=== PATIENT | female | born 1945 | race African-American/Black ===

== ENCOUNTER 2017-11-10 09:39 | Emergency (ER) | payer MEDICARE, SELFPAY ==
[2017-11-10 09:40] VITALS: BP 165/75; PULSE 80; RESP 18; TEMP 36.6; O2SAT 98; BMI 29.3
--- NOTE | 2017-11-10 10:11 | ED.DCSUM_ITS ---
- ER Visit Summary Date of Service: 11/10/17 Chief Complaint: Lower abdominal pain History of Present Illness: The patient is a 72 F history of glaucoma. No prior surgeries. One month ago had a colonoscopy done at the [facility] which she states was unremarkable. She has been having lower abdominal pain for last 2 days or so. Says is constant. Associated nausea. No vomiting. No diarrhea. No constipation. No melena. Subjective fever. No dysuria. No hematuria. No upper abdominal pain no back pain. Nothing specifically makes it better or worse. No weight loss. She had similar symptoms in the past without diagnosis. Physical Examination: Well-appearing older female. Vital signs are stable and afebrile. H EENT exam unremarkable. Neck nontender. Lungs clear to auscultation bilaterally. Heart regular rate and rhythm no murmur. Abdomen is soft. Nondistended. Normal bowel sounds. No hernias or masses. No signs of obstruction. She is tender in both lower quadrants and suprapubically. There is no pulsatile mass. She is moving all 4 extremities are neurovascularly intact. Back is nontender. Neurologically she is awake and alert without focal motor deficits. Test Results: Hemoglobin is 12 unremarkable. Electrolytes unremarkable gap of 9 creatinine 1. UA has 5-10 white cells were 10-25 3 of cells 2+ bacteria I think is contaminated. CT abdomen pelvis with IV contrast shows sigmoid diverticulitis without perforation or abscess. Read by the radiologist. Emergency Department Course and Treatment: Older female with lower abdominal pain will have labs, UA and CT done. At this time she does not want anything for pain or nausea. Treatment Plan: Multiple repeat exams patient is currently doing well at 1434. She denied discussed test results in the CAT scan. She is comfortable being discharged to home. And being treated as an outpatient for acute sigmoid diverticulitis. She will be started on Cipro twice daily and Flagyl 3 times daily for 2 weeks. She did not want any thing stronger for pain at home will follow up with her primary care physician. Disposition: Discharge Impression: Acute abdominal pain secondary to sigmoid diverticulitis This note was generated with [employer] software. It may contain incorrect words, spelling, and punctuation that were not noted in review of the chart prior to signing ED Disposition - Plan for ED Patient: Chief Complaint: Abd Pain Referrals: Haris Child MD [STAFF PHYSICIAN] -
[2017-11-10 10:30] VITALS: BP 129/50; PULSE 76; RESP 14; O2SAT 99
[2017-11-10] MEDS: 0.9% Normal Saline 1,000 ML 1000 ML IV (10:33)
[2017-11-10 10:45] LABS: Absolute Lymphocyte Count 1.88 X10^3/ul (0.83-4.51); Absolute Neutrophil Count 6.1 X10^3/uL (2.0-7.7); Basophil# 0.02 X10^3/uL; Basophil% 0.2 % (0-1); Hematocrit 40.5 % (37-47); Hemoglobin 12.6 g/dl (12.0-15.0); Lymphocyte # 1.88 X10^3/ul (4.0); Lymphocyte % 20.9 % (19-41); Mean Corp Hgb Conc 31.1 g/gl (32-36); Mean Corpuscular Hgb 28.4 pg (27.0-32.0); Mean Corpuscular Volume 91.4 fL (81-99); Mean Platelet Vol. 10.4 fl (6.2-12.0); Monocyte# 0.95 X10^3/uL; Monocyte% 10.6 % (0-10); Neutrophil # 6.12 X10^3/uL (2.7-7.7); Neutrophil % 68.2 % (47-70); POSITIVE COUNT NO; POSITIVE DIFFERENTIAL NO; POSITIVE MORPHOLOGY NO; Platelet Count 278 K/mm3 (150-450); RBC Distribution Width CV 13.7 % (11.6-14.6); RBC Distribution Width SD 45.5 fl (35.1-43.9); Red Blood Count 4.43 M/mm3 (4.2-5.4)
[2017-11-10 10:49] LABS: Anion Gap 9 (5-15); BUN 9 mg/dL (7-18); BUN/Creat Ratio 7.8 RATIO (10-20); Calcium,Total 8.5 mg/dL (8.5-10.1); Chloride 111 mmol/L (98-107); Creatinine, Serum 1.15 mg/dL (0.55-1.02); EST Glomerular Filtration Rate 49 mL/min (>60); Est Glom Filt Rate - Afr Amer 60 mL/min (>60); Estimated Creatinine Clearance 44.61 ml/min; Glucose 109 mg/dL (74-106); Potassium 3.8 mmol/L (3.5-5.1); Sodium Level 144 mmol/L (136-145)
[2017-11-10] MEDS: Morphine 4 MG/ML Syringe IV (11:23)
[2017-11-10] MEDS: Ondansetron 4 MG/2 ML Vial IV (11:23)
[2017-11-10 11:40] LABS: Color, Urine Yellow (Yellow); Glucose, Dipstick Normal (Normal); Ketone-Dipstick 5 mg/dl (Negative); Leukocyte Esterase-Dipstick 500 /ul (Negative); Nitrite-Dipstick Negative (Negative); Occult Blood-Urine 25 /ul (Negative); Protein-Dipstick 15 mg/dl (Negative); Specific Gravity, Urine 1.015 (1.002-1.030); Urine Bilirubin Dipstick Negative (Negative); Urine Clarity Cloudy (Clear); Urine Urobilinogen Normal (Normal)
[2017-11-10 11:47] LABS: Red Blood Cells-Urine 0-5 SEEN /hpf (0-5); Squamous Epithelial Cells - UA 10-25 SEEN /hpf (5-10); White Blood Cells 5-10 SEEN /hpf (0-5)
[2017-11-10 11:48] LABS: Bacteria 2+ /hpf (None Seen); Mucous, Urine RARE /hpf (<or=2+)
--- NOTE | 2017-11-10 14:37 | ED.DEP ---
ED Disposition - Plan for ED Patient: Disposition: Home or Assisted Living Chief Complaint: Abd Pain Instructions: ED Diverticulitis Prescriptions: Metronidazole [Flagyl] 500 mg PO Q8H #42 tab Ciprofloxacin [Cipro] 500 mg PO BID #28 tab Referrals: Haris Child MD [STAFF PHYSICIAN] - Additional Instructions: On follow-up with Dr. Vazquez next week to be reevaluated. We will place you on Cipro 1 pill twice a day which is an antibiotic and also Flagyl 1 pill 3 times a day. This should progressively get better return to the ER if you are feeling worse.
[2017-11-10] MEDS: metroNIDAZOLE 500 MG Tablet PO (14:46)
[2017-11-10] MEDS: Ciprofloxacin 500 MG Tablet PO (14:47)
[2017-11-10 14:49] VITALS: BP 147/72; PULSE 70; RESP 14; O2SAT 97
[2017-11-10 14:50] VITALS: BP 147/72
== END 2017-11-10 14:51 | disposition home or self-care (01) ==
PROVIDERS: Emergency Provider Emergency Medicine
DX: K57.32 Diverticulitis of large intestine without perforation or abscess without bleeding (principal); R10.30 Lower abdominal pain, unspecified; H40.9 Unspecified glaucoma
CPT/HCPCS: 74177; 80048; 81001; 85025; 96361; 96374; 96375; 99284; J7030; Q9967; J2405

== ENCOUNTER 2018-06-16 16:54 | Observation (INO) | payer MEDICARE, SELFPAY ==
[2018-06-16] VITALS (9 sets, daily range): BP systolic 128–191; BP diastolic 68–85; PULSE 57–77; RESP 16–18; TEMP 36–36.6; O2SAT 97–100; BMI 29.9; BMI 29.7
--- NOTE | 2018-06-16 17:12 | EKG12_ITS ---
Test Reason : CP Blood Pressure : / mmHG Vent. Rate : 075 BPM Atrial Rate : 075 BPM P-R Int : 136 ms QRS Dur : 074 ms QT Int : 388 ms P-R-T Axes : 052 -07 023 degrees QTc Int : 433 ms Normal sinus rhythm Normal ECG Confirmed by LILLI OQUENDO, SCOTT ([id number]), society editor MADAI AN ([id number]) on 06/20/2018 10:51:25 AM Referred By: USHA Confirmed By:SCOTT REEDER MD
--- NOTE | 2018-06-16 17:15 | ED.DCSUM_ITS ---
- ER Visit Summary Date of Service: 06/16/18 Chief Complaint: Chest pain History of Present Illness: The patient is a 72 F with chest pain that started today around 2 PM. She never had this before. She reports a stabbing pain over her left chest. No radiation. She has some nausea and dizziness. The diz ziness has been going on however intermittently for the past month. It seems to be worse with certain positions. No history of vision changes, speech changes, facial droop, weakness, or numbness. No history of heart disease, aortic disease, or embolism. She never had a stress test or heart cath. Physical Examination: Afebrile and vital signs are unremarkable except for a blood pressure of 191/83. Patient is alert and oriented. No acute distress. Heart regular rate and rhythm. No murmurs. Lungs are clear bilaterally. Abdomen soft and nontender. Skin is normal in color without pallor, rash, or diaphoresis. Extremities nontender with no edema. Pulses 2+ and equal. Good strength and sensation, symmetric. Test Results: EKG showed sinus rhythm at a rate of 75 with no signs of ischemia or infarction pattern. Laboratory studies and chest x-ray are pending. Emergency Department Course and Treatment: Patient was placed on a monitor. Treated with aspirin and nitroglycerin while awaiting results. Will reassess. Patient's blood pressure and symptoms were better after treatment with aspirin a nd nitroglycerin. Blood work, troponin, EKG, chest x-ray were unremarkable. Patient has a heart score of 4. Hospitalist was contacted for further care. Treatment Plan: As above Disposition: Admission Impression: 1. Chest pain This note was generated with [facility] dictation software. It may contain incorrect words, spelling, and punctuation that were not noted in review of the chart prior to signing ED Disposition - Plan for ED Patient: Referrals: Lane Vazquez MD [Primary Care Provider] -
--- NOTE | 2018-06-16 17:15 | RAD_ITS ---
STUDY: X-RAY CHEST REASON FOR EXAM: Female, 72 years old. Chest pain. TECHNIQUE: Single frontal view of the chest. COMPARISON: None. FINDINGS: The lungs are clear and expanded. There is no demonstrated pleural abnormality. Normal size heart. Normal mediastinum and greg. Normal visualized pulmonary arteries. Normal visualized aortic arch and descending thoracic aorta. Normal visualized thoracic spine. Normal visualized ribs, clavicles, and shoulders. There is no demonstrated abnormality of the visualized soft tissue structures of the upper abdomen. RAD/Chest 1 View (Portable) IMPRESSION: No acute cardiopulmonary process. Electronically Signed: Radhika Williamson MD at 17:35 EDT Tel , Service support ,
[2018-06-16 17:25] LABS: Absolute Lymphocyte Count 1.83 X10^3/ul (0.83-4.51); Absolute Neutrophil Count 2.4 X10^3/uL (2.0-7.7); Basophil# 0.01 X10^3/uL; Basophil% 0.2 % (0-1); Hemoglobin 12.8 g/dl (12.0-15.0); Lymphocyte # 1.83 X10^3/ul (4.0); Lymphocyte % 39.7 % (19-41); Mean Corpuscular Hgb 29.1 pg (27.0-32.0); Mean Corpuscular Volume 90.9 fL (81-99); Mean Platelet Vol. 10.3 fl (6.2-12.0); Monocyte# 0.37 X10^3/uL; Neutrophil % 52.1 % (47-70); Platelet Count 288 K/mm3 (150-450); RBC Distribution Width CV 13.3 % (11.6-14.6); RBC Distribution Width SD 44.4 fl (35.1-43.9); White Blood Count 4.6 K/mm3 (4.4-11.0)
[2018-06-16] MEDS: Aspirin 81 MG TAB.CHEW 324 MG PO (17:25)
[2018-06-16 17:26] LABS: POSITIVE COUNT NO; POSITIVE DIFFERENTIAL NO; POSITIVE MORPHOLOGY NO
[2018-06-16 17:39] LABS: Anion Gap 8 (5-15); BUN 11 mg/dL (7-18); BUN/Creat Ratio 10.7 RATIO (10-20); Calcium,Total 8.3 mg/dL (8.5-10.1); Chloride 110 mmol/L (98-107); Creatinine, Serum 1.03 mg/dL (0.55-1.02); EST Glomerular Filtration Rate 56 mL/min (>60); Est Glom Filt Rate - Afr Amer 68 mL/min (>60); Glucose 97 mg/dL (74-106); Potassium 3.6 mmol/L (3.5-5.1); Sodium Level 145 mmol/L (136-145)
--- NOTE | 2018-06-16 19:07 | HP.PCM_ITS ---
Problem List (1) Chest pain at rest Status: Acute History of Present Illness Date of Admission: 06/16/18 Chief Complaint: chest pain The patient is a 72 year old F with a significant history of glaucoma who presented to the emergency department with chest pain at rest that started few hours before presentation. She describes chest pain as sharp; and with intensity of 10 out of 10. There are no alleviating or aggravating factors. She denies any nausea vomiting or diaphoresis. Her chest pain is to the left- sided of the chest and it is nonradiating. EKG at the emergency department showed sinus rhythm and her troponin was unremarkable. Also patient complained of vertigo that has been going on for about 1 month. She is scheduled to see her PCP on her 06/21/2018 for vertigo. She reported that an MRI last year done for Vertigo was unremarkable and she was referred to an eye doctor. Past Medical History Medical History: Medical History (Last Updated 06/16/18 @ 20:11 by Kirby Plata MD) Glaucoma H40.9 Allergies No Known Allergies Allergy (Verified 11/10/17 09:41) Home Medications: Ambulatory Orders Medication Instructions Recorded Dorzolamide HCL/Timolol [Cosopt 1 drop EACH EYE BID 11/10/17 Opth Drops] Latanoprost 1 drop EACH EYE QHS 11/10/17 Surgical History: no surgical history Lives: Alone Smoking Status: Never smoker Tobacco Use: Non-smoker Alcohol: None - *Family History Maternal History Items: Cancer Sibling History Items: Cancer Review of Systems Constitutional: Denies: Chills, Fever, Weight Change HEENT: Denies: Head Aches, Sinus Congestion, Sinus Drainage Cardiovascular: Reports: Chest Pain. Denies: Palpitations Respiratory: Denies: Cough, Shortness of breath at rest, Sputum production Gastrointestinal: Denies: Abdominal Pain, Nausea, Vomiting Genitourinary: Denies: Dysuria Musculoskeletal: Denies: Joint Pain, Joint Tenderness Skin: Denies: Rash, Wounds Neurological: Denies: Numbness, Tingling, Focal weakness Psychiatric: Denies: Anxiety, Depression, Homicidal Ideations, Suicidal Ideati ons Hematologic/ Lymphatic: Denies: Easy Bruising, Easy Bleeding VTE Information - Inpt Only VTE Present on Admission: No VTE Mechan Device Prophylaxis: None VTE Pharm Prophylaxis ordered?: Yes Patient Problems: Active and Suspected Problems (Last Updated 06/16/18 @ 20:11 by Kirby Plata MD) Chest pain at rest (Acute) - Physical Exam General: Alert, Oriented x3, Cooperative HEENT: Atraumatic, PERRLA, EOMI, Normocephalic Neck: Supple, No JVD, Negative Carotid Bruits Lungs: Clear to auscultation, Normal air movement Cardiovascular: Regular rate, No murmurs Abdomen: Bowel Sounds Present, Soft, Non Tender Extremities: No edema, Capillary Refill Less than 3 Seconds Skin: No rashes, No breakdown Musculoskeletal: No Tenderness to Palpation of Joints or Extremities Neurological: Neuro grossly intact, - - Patria-Hallpike maneuver was unremarkable. Psych/Mental Status: Normal Affect, Appropriate Vital Signs Temp Pulse Resp BP Pulse Ox 97.8 F 57 L 16 145/85 H 97 06/16/18 16:55 06/16/18 18:00 06/16/18 18:00 06/16/18 18:00 06/16/18 18:00 Oxygen Delivery Method Room Air Weight: 89.5 kg Body Mass Index (BMI) 29.9 Laboratory Tests Past 24 Hrs 06/16/18 06/16/18 17:05 17:05 WBC 4.6 RBC 4.40 Hgb 12.8 Hct 40.0 MCV 90.9 MCH 29.1 MCHC 32.0 RDW 13.3 RDW Differential 44.4 H Plt Count 288 MPV 10.3 Immature Gran % (Auto) 0.000 Neut % (Auto) 52.1 Lymph % (Auto) 39.7 [place] % (Auto) 8.0 Eos % (Auto) 0.0 Baso % (Auto) 0.2 Absolute Neuts (auto) 2.4 Absolute Lymphs (auto) 1.83 Total Counted Not Reportable Sodium 145 Potassium 3.6 Chloride 110 H Carbon Dioxide 27.0 Anion Gap 8 BUN 11 Creatinine 1.03 H Estim Creat Clear Calc 49.80 Est GFR (MDRD) Af Amer 68 Est GFR (MDRD) Non-Af 56 L BUN/Creatinine Ratio 10.7 Glucose 97 Calcium 8.3 L Troponin I < 0.015 Assessment/Plan All Active Problems (Last Updated 06/16/18 @ 20:11 by Kirby Plata MD) Chest pain at rest (Acute) The patient is a 72 year old F with a significant history of glaucoma who presented to the emergency department with chest pain at rest and with chronic vertigo. Chest pain Admit to a monitored bed on PCU CXR independently reviewed confirms no acute cardiopulmonary process. EKG independently reviewed confirms sinus rhythm ASA 81 mg p.o. daily SL NTG 0.4 mg prn as needed for chest pain We will check lipid panel. High intensity statin ordered Serial cardiac enzymes Stat EKG as needed for chest pain Tread mill Stress test in the AM if the cardiac enzymes are negative Chronic Vertigo As needed meclizine ordered. Physical therapy to work with patient on vestibular exercises. Patient to follow-up with PCP Glaucoma Latanoprost and Cosopt continued DVT prophylaxis Subcutaneous Lovenox. Code Visit OBSV E&M: 78455 Initial observation care L3
--- NOTE | 2018-06-16 20:21 | EKG12_ITS ---
Test Reason : ADM EKG Blood Pressure : / mmHG Vent. Rate : 066 BPM Atrial Rate : 066 BPM P-R Int : 130 ms QRS Dur : 068 ms QT Int : 406 ms P-R-T Axes : 032 008 014 degrees QTc Int : 425 ms Normal sinus rhythm Normal ECG When compared with ECG of 16-JUN-2018 16:54, MANUAL COMPARISON REQUIRED, DATA IS UNCONFIRMED Confirmed by LILLI OQUENDO, SCOTT ([id number]), avid editor MADAI AN ([id number]) on 06/21/2018 8:17:14 AM Referred By: CARLI Confirmed By:SCOTT REEDER MD
[2018-06-16] MEDS: Atorvastatin Calcium 40 MG Tablet PO (21:48)
[2018-06-16] MEDS: Latanoprost 0.005% 1 Bottle 1 DRP EACH EYE (21:49)
[2018-06-16] MEDS: Dorzolamide HCL/Timolol 10 ml Bottle 1 DRP EACH EYE (21:49)
[2018-06-16] MEDS: Acetaminophen 325 MG Tablet 650 MG PO (22:28)
[2018-06-17] VITALS (7 sets, daily range): BP systolic 126–148; BP diastolic 60–83; PULSE 62–89; RESP 16–18; TEMP 36.4–36.6; O2SAT 100
[2018-06-17 04:31] LABS: Absolute Lymphocyte Count 1.92 X10^3/ul (0.83-4.51); Absolute Neutrophil Count 2.6 X10^3/uL (2.0-7.7); Basophil# 0.02 X10^3/uL; Basophil% 0.4 % (0-1); Hematocrit 39.1 % (37-47); Lymphocyte # 1.92 X10^3/ul (4.0); Lymphocyte % 38.6 % (19-41); Mean Corp Hgb Conc 33.2 g/gl (32-36); Mean Corpuscular Hgb 29.3 pg (27.0-32.0); Mean Corpuscular Volume 88.3 fL (81-99); Mean Platelet Vol. 10.3 fl (6.2-12.0); Monocyte# 0.45 X10^3/uL; Neutrophil # 2.58 X10^3/uL (2.7-7.7); Neutrophil % 51.8 % (47-70); Platelet Count 259 K/mm3 (150-450); RBC Distribution Width CV 13.1 % (11.6-14.6); RBC Distribution Width SD 41.9 fl (35.1-43.9); Red Blood Count 4.43 M/mm3 (4.2-5.4)
[2018-06-17 04:35] LABS: POSITIVE COUNT NO; POSITIVE DIFFERENTIAL NO; POSITIVE MORPHOLOGY NO
[2018-06-17 04:43] LABS: Partial Thromboplast Time 32.9 Seconds (24.1-36.2)
[2018-06-17 04:45] LABS: Anion Gap 7 (5-15); BUN 11 mg/dL (7-18); BUN/Creat Ratio 12.4 RATIO (10-20); Chloride 114 mmol/L (98-107); Cholesterol 195 mg/dL (200); Creatinine, Serum 0.88 mg/dL (0.55-1.02); EST Glomerular Filtration Rate 67 mL/min (>60); Est Glom Filt Rate - Afr Amer 81 mL/min (>60); Estimated Creatinine Clearance 58.29 ml/min; Glucose 87 mg/dL (74-106); High Density Lipoprotein 62 mg/dL; Potassium 3.8 mmol/L (3.5-5.1); Sodium Level 145 mmol/L (136-145); Triglycerides 104 mg/dL; Very Low Density Lipoprotein 21 mg/dL (5-40)
[2018-06-17] MEDS: Aspirin E.C. 81 MG Tablet PO (05:41)
--- NOTE | 2018-06-17 05:55 | EKG12_ITS ---
Test Reason : AM EKG Blood Pressure : / mmHG Vent. Rate : 072 BPM Atrial Rate : 072 BPM P-R Int : 152 ms QRS Dur : 070 ms QT Int : 422 ms P-R-T Axes : 054 -06 009 degrees QTc Int : 462 ms Normal sinus rhythm Normal ECG When compared with ECG of 16-JUN-2018 20:45, MANUAL COMPARISON REQUIRED, DATA IS UNCONFIRMED Confirmed by LILLI OQUENDO, SCOTT ([id number]), technical writer and editor MADAI AN ([id number]) on 06/21/2018 8:15:40 AM Referred By: DR RICHARDSON Confirmed By:SCOTT REEDER MD
--- NOTE | 2018-06-17 08:40 | STRESSREP ---
Stress Test Report Exercise myocardial perfusion stress test. 72-year-old lady with a history of chest pain. Medications: Aspirin Lipitor Lovenox. Stress protocol: Resting EKG demonstrates sinus bradycardia with a rate of 60 bpm normal intervals are noted resting blood pressure 130/100 mmHg. The patient exercised according to the regular Jonel protocol for total duration of 4 minutes. Patient completed 1 minute into stage II of the Jonel protocol the maximum heart rate attained was 153 bpm which was 103% of maximum predicted heart rate the maximum workload was 5.8 metabolic equivalents. At rest there were no ST or T wave changes noted suggest ischemia at peak exercise occasional premature ventricular complexes were noted. The resting blood pressure 130/100 mmHg with a final blood pressure 160/90 mmHg the peak blood pressure 190/72 mmHg. Myocardial perfusion protocol. 11.5 mCi of technetium 99m sestamibi was injected at rest. The patient exercised according to regular Jonel protocol for 4 minutes at peak exercise 34.2 mCi of technetium 99m sestamibi was injected stress images were obtained stress and rest images were reconstructed and compared in the short axis vertical long horizontal long axis. Gated images were also obtained per Perfusion SPECT analysis: Review of the stress images demonstrate normal uptake of tracer noted in all areas of the myocardium. The resting images similarly demonstrate normal uptake of tracer noted in all areas of myocardium. No areas of reversibility are noted suggest ischemia no previous infarct is noted. Gated SPECT analysis: The gated ejection fraction is noted to be 74%. Conclusion: Normal exercise myocardial perfusion stress test at a low to moderate workload. Preserved ejection fraction.
--- NOTE | 2018-06-17 10:18 | DCINST_ITS ---
- Discharge Diagnoses Current Active Problems: Current Active and Chronic Problems (Last Updated 06/16/18 @ 20:11 by Kirby Plata MD) Chest pain at rest (Acute) You will use the following diet at home:: Cardiac - <2 gram sodium per day Your food should be the consistency of: Regular Your liquids should be the consistency of: Regular/Thin Discharge Activity: Return to Normal Activity Allergies/Adverse Reactions: Allergies No Known Allergies Allergy (Verified 11/10/17 09:41) Medications to take at Discharge Dorzolamide HCL/Timolol [Cosopt Opth Drops] 1 drop EACH EYE BID 11/10/17 Latanoprost 1 drop EACH EYE QHS 11/10/17 Meclizine HCl [Antivert] 12.5 mg PO TID PRN PRN #21 tablet 06/17/18 The following prescriptions were given: Meclizine HCl [Antivert] 12.5 mg PO TID PRN PRN #21 tablet PRN Reason: Vertigo Primary Care Physician: Lane Vazquez MD [Primary Care Provider] - Please follow up with your Primary Care Physician in: 1 week Test Results: Test results from this visit will be discussed in further detail at your follow- up appointment, if applicable.
[2018-06-17] MEDS: Dorzolamide HCL/Timolol 10 ml Bottle 1 DRP EACH EYE (10:32)
[2018-06-17] MEDS: Acetaminophen 325 MG Tablet 650 MG PO (10:55)
--- NOTE | 2018-06-17 15:08 | DS.PCM_ITS ---
<Tylor Sarmiento - Last Filed: 06/17/18 15:03> Discharge Date and Diagnosis Date of Admission: 06/16/18 Date of Discharge: 06/17/18 - Primary Discharge Diagnosis Chest pain - musculoskeletal chronic peripheral vertigo glaucoma Hospital Course and Treatment Imaging Results: RAD/Chest 1 View (Portable) IMPRESSION: No acute cardiopulmonary process. Stress test: Conclusion: Normal exercise myocardial perfusion stress test at a low to moderate workload. Preserved ejection fraction. Operations: None Procedures: Stress test Summary of Care Provided: Hospital course: The patient is a 72 year old F with pmhx of chronic vertigo and glaucoma who presented to the ER with chief complaint of chest pain described as sharp 10/10 pain occurring at rest with no aggravating or alleviating factors. She also noted that she has had vertigo worse over the last month, and that she has had workup for this over a year ago and plans to have outpatient follow up with her PCP for this. EKG, trop, and CXR were negative. She was admitted for CP and placed on tele in the PCU. Enzymes were cycled - negative. No events on tele. The following morning a stress test was performed and was negative. She was discharged home in stable condition. She was prescribed meclizine for vertigo and advised to follow up with her PCP for this as previously planned, in the next week. This patient was seen by Tylor Sarmiento PA-C under the supervision of Dr. Stevenson.[] - Physical Exam General: Alert, Oriented x3, Cooperative HEENT: Atraumatic, PERRLA, EOMI, Normocephalic Neck: Supple, No JVD, Negative Carotid Bruits Lungs: Clear to auscultation, Normal air movement Cardiovascular: Regular rate, No murmurs Abdomen: Bowel Sounds Present, Soft, Non Tender Extremities: No edema, Capillary Refill Less than 3 Seconds Skin: No rashes, No breakdown Musculoskeletal: No Tenderness to Palpation of Joints or Extremities Neurological: Cranial nerves II-XII grossly intact Psych/Mental Status: Normal Affect, Appropriate Vital Signs Temp Pulse Resp BP Pulse Ox 97.5 F L 71 16 127/60 H 100 06/17/18 10:29 06/17/18 11:00 06/17/18 10:29 06/17/18 10:40 04/05/19 10:29 Oxygen Delivery Method Room Air Weight: 196 lb 10.437 oz Body Mass Index (BMI) 29.7 Intake and Output for Last 24 Hours 06/15/18 06/16/18 06/17/18 23:59 23:59 23:59 Intake Total 240 / 240 0 / 0 Balance 240 / 240 0 / 0 Laboratory Tests Past 24 Hrs 06/16/18 06/16/18 06/16/18 17:05 17:05 20:30 WBC 4.6 RBC 4.40 Hgb 12.8 Hct 40.0 MCV 90.9 MCH 29.1 MCHC 32.0 RDW 13.3 RDW Differential 44.4 H Plt Count 288 MPV 10.3 Immature Gran % (Auto) 0.000 Neut % (Auto) 52.1 Lymph % (Auto) 39.7 [place] % (Auto) 8.0 Eos % (Auto) 0.0 Baso % (Auto) 0.2 Absolute Neuts (auto) 2.4 Absolute Lymphs (auto) 1.83 Total Counted Not Reportable PT INR APTT Sodium 145 Potassium 3.6 Chloride 110 H Carbon Dioxide 27.0 Anion Gap 8 BUN 11 Creatinine 1.03 H Estim Creat Clear Calc 49.80 Est GFR (MDRD) Af Amer 68 Est GFR (MDRD) Non-Af 56 L BUN/Creatinine Ratio 10.7 Glucose 97 Calcium 8.3 L Troponin I < 0.015 < 0.015 Triglycerides Cholesterol LDL Cholesterol VLDL Cholesterol HDL Cholesterol 06/17/18 06/17/18 06/17/18 00:20 04:22 04:22 WBC RBC Hgb Hct MCV MCH MCHC RDW RDW Differential Plt Count MPV Immature Gran % (Auto) Neut % (Auto) Lymph % (Auto) [place] % (Auto) Eos % (Auto) Baso % (Auto) Absolute Neuts (auto) Absolute Lymphs (auto) Total Counted PT 13.0 INR 1.0 APTT 32.9 Sodium 145 Potassium 3.8 Chloride 114 H Carbon Dioxide 24.0 Anion Gap 7 BUN 11 Creatinine 0.88 Estim Creat Clear Calc 58.29 Est GFR (MDRD) Af Amer 81 Est GFR (MDRD) Non-Af 67 BUN/Creatinine Ratio 12.4 Glucose 87 Calcium 8.0 L Troponin I < 0.015 Triglycerides 104 Cholesterol 195 LDL Cholesterol 112 VLDL Cholesterol 21 HDL Cholesterol 62 06/17/18 04:22 WBC 5.0 RBC 4.43 Hgb 13.0 Hct 39.1 MCV 88.3 MCH 29.3 MCHC 33.2 RDW 13.1 RDW Differential 41.9 Plt Count 259 MPV 10.3 Immature Gran % (Auto) 0.200 Neut % (Auto) 51.8 Lymph % (Auto) 38.6 [place] % (Auto) 9.0 Eos % (Auto) 0.0 Baso % (Auto) 0.4 Absolute Neuts (auto) 2.6 Absolute Lymphs (auto) 1.92 Total Counted Not Reportable PT INR APTT Sodium Potassium Chloride Carbon Dioxide Anion Gap BUN Creatinine Estim Creat Clear Calc Est GFR (MDRD) Af Amer Est GFR (MDRD) Non-Af BUN/Creatinine Ratio Glucose Calcium Troponin I Triglycerides Cholesterol LDL Cholesterol VLDL Cholesterol HDL Cholesterol Discharge Diet: No Restrictions Discharge Activity: Return to Normal Activity Home Medications: Medications to take at Discharge Dorzolamide HCL/Timolol [Cosopt Opth Drops] 1 drop EACH EYE BID 11/10/17 Latanoprost 1 drop EACH EYE QHS 11/10/17 Meclizine HCl [Antivert] 12.5 mg PO TID PRN PRN #21 tablet 06/17/18 Following Prescrptions Were Given to Patient: Meclizine HCl [Antivert] 12.5 mg PO TID PRN PRN #21 tablet PRN Reason: Vertigo Primary Care Physician: Lane Vazquez MD [Primary Care Provider] - Please follow up with your Primary Care Physician in: 1 week Disposition: Home Medical Necessity - Tobacco Use Smoking Status: Never smoker Tobacco Use: Non-smoker Meaningful Use Info Meaningful Use Diagnoses (Choose all that apply): None applicable <Jen Stevenson - Last Filed: 06/17/18 17:31> Hospital Course and Treatment Summary of Care Provided: This patient was seen in conjunction with MONICA Hanson. I have independently interviewed and examined the patient and reviewed pertinent historical, laboratory, and other data. Please refer to MONICA Hanson note for his patient's presentation, findings, and recommendations. I have reviewed and his note and concur with his documentation 72-year-old who presented with chest pain. Admit EKG was unremarkable, troponins were negative, chest x-ray was negative, stress test was negative. Patient was discharged in a stable state Physical Exam: Gen: alert, not pale, not jaundiced CVS:HS I +II, regular, no murmurs RESP: CTA GI: BS present, soft, nontender, no palpable organs EXT:No edema - Physical Exam Vital Signs Temp Pulse Resp BP Pulse Ox 97.5 F L 71 16 127/60 H 100 06/17/18 10:29 06/17/18 11:00 06/17/18 10:29 06/17/18 10:40 06/17/18 10:29 Oxygen Delivery Method Room Air Weight: 89.2 kg Body Mass Index (BMI) 29.7 Intake and Output for Last 24 Hours 06/15/18 06/16/18 06/17/18 23:59 23:59 23:59 Intake Total 240 / 240 0 / 0 Balance 240 / 240 0 / 0 Laboratory Tests Past 24 Hrs 06/16/18 06/16/18 06/17/18 17:05 20:30 00:20 WBC RBC Hgb Hct MCV MCH MCHC RDW RDW Differential Plt Count MPV Immature Gran % (Auto) Neut % (Auto) Lymph % (Auto) [place] % (Auto) Eos % (Auto) Baso % (Auto) Absolute Neuts (auto) Absolute Lymphs (auto) Total Counted PT INR APTT Sodium 145 Potassium 3.6 Chloride 110 H Carbon Dioxide 27.0 Anion Gap 8 BUN 11 Creatinine 1.03 H Estim Creat Clear Calc 49.80 Est GFR (MDRD) Af Amer 68 Est GFR (MDRD) Non-Af 56 L BUN/Creatinine Ratio 10.7 Glucose 97 Calcium 8.3 L Troponin I < 0.015 < 0.015 < 0.015 Triglycerides Cholesterol LDL Cholesterol VLDL Cholesterol HDL Cholesterol 06/17/18 06/17/18 06/17/18 04:22 04:22 04:22 WBC 5.0 RBC 4.43 Hgb 13.0 Hct 39.1 MCV 88.3 MCH 29.3 MCHC 33.2 RDW 13.1 RDW Differential 41.9 Plt Count 259 MPV 10.3 Immature Gran % (Auto) 0.200 Neut % (Auto) 51.8 Lymph % (Auto) 38.6 [place] % (Auto) 9.0 Eos % (Auto) 0.0 Baso % (Auto) 0.4 Absolute Neuts (auto) 2.6 Absolute Lymphs (auto) 1.92 Total Counted Not Reportable PT 13.0 INR 1.0 APTT 32.9 Sodium 145 Potassium 3.8 Chloride 114 H Carbon Dioxide 24.0 Anion Gap 7 BUN 11 Creatinine 0.88 Estim Creat Clear Calc 58.29 Est GFR (MDRD) Af Amer 81 Est GFR (MDRD) Non-Af 67 BUN/Creatinine Ratio 12.4 Glucose 87 Calcium 8.0 L Troponin I Triglycerides 104 Cholesterol 195 LDL Cholesterol 112 VLDL Cholesterol 21 HDL Cholesterol 62 Minutes spent on discharge:: 40 Patient Condition:: Stable Code Visit OBSV E&M: [id number] Observation care discharge
== END 2018-06-17 10:17 | disposition home or self-care (01) ==
LOC: ED 17:48 → PCU 20:00
PROVIDERS: Admitting Provider Hospitalist; Emergency Provider Emergency Medicine; Family Provider Internal Medicine; PCP Internal Medicine; Visit Provider Internal Medicine
DX: R07.89 Other chest pain (principal); R11.0 Nausea; H40.9 Unspecified glaucoma; H81.399 Other peripheral vertigo, unspecified ear; Z79.899 Other long term (current) drug therapy
CPT/HCPCS: 36415; 71045; 78452; 80048; 80061; 84484; 85025; 85610; 85730; 93005; 93017; 99218; 99285; A9500; A4216; G0378

== ENCOUNTER 2018-07-23 12:20 | Emergency (ER) | payer MEDICARE, SELFPAY ==
[2018-06-16 20:53] VITALS: BMI 29.7
[2018-07-23 12:21] VITALS: BP 150/71; PULSE 80; RESP 20; TEMP 36.4; O2SAT 97; BMI 29.5
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
--- NOTE | 2018-07-23 12:41 | EKG12_ITS ---
Test Reason : CP Blood Pressure : / mmHG Vent. Rate : 075 BPM Atrial Rate : 075 BPM P-R Int : 132 ms QRS Dur : 070 ms QT Int : 400 ms P-R-T Axes : 077 037 049 degrees QTc Int : 446 ms Normal sinus rhythm Normal ECG Confirmed by DAVIE BEYER ([id number]), mapping editor MADAI AN ([id number]) on 07/25/2018 1:53:08 PM Referred By: VARGAS Confirmed By:DAVIE BEYER
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
[2018-07-23] MEDS: HYDROcodone Bitartrate/Apap 5/325 Tablet PO (12:54)
--- NOTE | 2018-07-23 14:12 | NURSING ---
CALLED [facility] ABOUT TRANSFER.
[2018-07-23 14:53] VITALS: BP 165/79; PULSE 71; RESP 18; O2SAT 99
--- NOTE | 2018-07-23 14:54 | NURSING ---
CALLED [facility] FOR TRANSPORT.
[2018-07-23 14:59] LABS: Absolute Lymphocyte Count 1.43 X10^3/ul (0.83-4.51); Absolute Neutrophil Count 3.2 X10^3/uL (2.0-7.7); Basophil# 0.01 X10^3/uL; Basophil% 0.2 % (0-1); Hematocrit 39.6 % (37-47); Lymphocyte # 1.43 X10^3/ul (4.0); Mean Corp Hgb Conc 32.8 g/gl (32-36); Mean Corpuscular Volume 88.2 fL (81-99); Mean Platelet Vol. 9.8 fl (6.2-12.0); Monocyte# 0.51 X10^3/uL; Neutrophil # 3.16 X10^3/uL (2.7-7.7); Neutrophil % 61.8 % (47-70); Platelet Count 291 K/mm3 (150-450); RBC Distribution Width CV 13.3 % (11.6-14.6); RBC Distribution Width SD 42.3 fl (35.1-43.9); Red Blood Count 4.49 M/mm3 (4.2-5.4); White Blood Count 5.1 K/mm3 (4.4-11.0)
[2018-07-23 15:00] LABS: POSITIVE COUNT NO; POSITIVE DIFFERENTIAL NO; POSITIVE MORPHOLOGY NO
[2018-07-23 15:19] LABS: Anion Gap 6 (5-15); BUN 15 mg/dL (7-18); BUN/Creat Ratio 12.2 RATIO (10-20); Calcium,Total 8.2 mg/dL (8.5-10.1); Chloride 112 mmol/L (98-107); Creatinine, Serum 1.23 mg/dL (0.55-1.02); EST Glomerular Filtration Rate 46 mL/min (>60); Est Glom Filt Rate - Afr Amer 55 mL/min (>60); Estimated Creatinine Clearance 41.71 ml/min; Glucose 118 mg/dL (74-106); Potassium 3.7 mmol/L (3.5-5.1); Sodium Level 143 mmol/L (136-145)
[2018-07-23 15:20] VITALS: BP 169/75; PULSE 82; RESP 17
== END 2018-07-23 15:21 | disposition short-term general hospital (02) ==
LOC: ED 12:56
PROVIDERS: Emergency Provider Emergency Medicine; Family Provider Internal Medicine; PCP Internal Medicine
DX: S22.42XA Multiple fractures of ribs, left side, initial encounter for closed fracture (principal); M54.2 Cervicalgia; V89.2XXA Person injured in unspecified motor-vehicle accident, traffic, initial encounter; Y93.9 Activity, unspecified; Y92.9 Unspecified place or not applicable; H40.9 Unspecified glaucoma
CPT/HCPCS: 70450; 71250; 72125; 80048; 85025; 93005; 99285; A4216

== ENCOUNTER 2018-08-15 12:00 | Emergency (ER) | payer MEDICARE, SELFPAY ==
[2018-08-15 12:01] VITALS: BP 134/80; PULSE 100; RESP 18; TEMP 36.6; O2SAT 100
--- NOTE | 2018-08-15 12:27 | CT_ITS ---
STUDY: CT BRAIN WITHOUT CONTRAST REASON FOR EXAM: Female, 72 years old. Head injury due to a fall. RADIATION DOSAGE (If Supplied By Facility): CTDIvol = ( 44.99 ) mGy, DLP = ( 745.49 ) mGycm TECHNIQUE: Transaxial CT imaging of the brain was performed without administration of intravenous contrast material. Individualized dose optimization techniques were used for this CT. COMPARISON: Comparison is made with prior examination dated July 23, 2018. FINDINGS: Normal soft tissue structures. Normal calvarium. There is mild cerebral atrophy with widening of the extra-axial spaces and ventricular dilatation. Normal white matter tracts of the cerebral hemispheres. Normal basal ganglia and thalami. Normal brainstem. There is mild cerebellar atrophy. There is no intracranial hemorrhage. There are no findings of an acute ischemic infarction. Normal visualized paranasal sinuses. CT/Brain/Head without Contrast IMPRESSION: Chronic involutional changes of the brain. Electronically Signed: Gaurav Foster, at 13:01 EDT , Service support ,
--- NOTE | 2018-08-15 12:50 | RAD_ITS ---
STUDY: X-RAY - LEFT HAND REASON FOR EXAM: Female, 72 years old. Pain, swelling and abrasions secondary to a fall. TECHNIQUE: 3 view(s) of the hand. COMPARISON: None. FINDINGS: There is joint space narrowing of the radiocarpal articulation consistent with degenerative arthrosis. There is absence of the distal aspect of the ulna. Normal visualized carpal bones. Normal carpal articulations Normal carpometacarpal articulation of the thumb. Normal second through fifth carpometacarpal joints. Normal metacarpi. Normal metacarpophalangeal joint of the thumb. Normal interphalangeal joint of the thumb. Normal proximal and distal phalanges of the thumb. Normal metacarpophalangeal joints of the second through fifth fingers. There is diffuse articular joint space narrowing of the proximal and distal interphalangeal joints of the second through fifth fingers, but without erosive changes or periarticular soft tissue swelling. Normal phalanges of the second through fifth fingers. Soft tissue swelling overlying the dorsal aspect of the hand. RAD/Hand Min 3 Views IMPRESSION: Degenerative changes. Soft tissue swelling. Electronically Signed: Gaurav Foster, at 13:03 EDT , Service support ,
[2018-08-15] MEDS: Diphth,Pertuss(Acell),Tet Vac 0.5 ML Vial IM (13:27)
--- NOTE | 2018-08-15 13:39 | ED.DCSUM_ITS ---
- ER Visit Summary Date of Service: 08/15/18 Chief Complaint: Fall History of Present Illness: The patient is a 72 F who tripped and fell on a sidewalk this morning. She is complaining of headache and left hand pain. She is not on anticoagulants. She denies loss of consciousness. Physical Examination: Vital signs unremarkable. Patient sitting upright in bed no acute distress. Head neck examination reveals an abrasion with small hematoma on the left eyebrow. Pupils are equal and reactive. Extraocular movements are intact. No C-spine tenderness. Heart is regular rate and rhythm. Lung sounds are clear. Abdomen is soft nontender. Extremity examination reveals abrasions with edema to the back of her left hand. There is no tenderness at the wrist, elbow, or shoulder. Right upper extremity examination is unremarkable. Lower extremity examination reveals mild tenderness over the right knee with full range of motion. Test Results: CT head shows chronic involutional changes. Left hand x-rays reveal soft tissue swelling and degenerative changes. Emergency Department Course and Treatment: Wounds are cleansed and dressed. Tetanus update is provided. Treatment Plan: [] Disposition: Discharge Impression: 1. Mechanical fall 2. Closed head injury 3. Left hand contusion This note was generated with [employer] dictation software. It may contain incorrect words, spelling, and punctuation that were not noted in review of the chart prior to signing ED Disposition - Plan for ED Patient: Disposition: Home or Assisted Living Instructions: ED Mechanical Fall, ED Head Injury Closed, ED Contusion Hand Referrals: Lane Vazquez MD [Primary Care Provider] - 5-7 Days
== END 2018-08-15 13:50 | disposition home or self-care (01) ==
PROVIDERS: Emergency Provider Emergency Medicine; Family Provider Internal Medicine; PCP Internal Medicine
DX: S00.212A Abrasion of left eyelid and periocular area, initial encounter (principal); S00.12XA Contusion of left eyelid and periocular area, initial encounter; S60.222A Contusion of left hand, initial encounter; W01.0XXA Fall on same level from slipping, tripping and stumbling without subsequent striking against object, initial encounter; Y93.9 Activity, unspecified; Y92.480 Sidewalk as the place of occurrence of the external cause; I25.2 Old myocardial infarction
CPT/HCPCS: 70450; 73130; 90471; 90715; 99284

== ENCOUNTER 2020-10-02 10:02 | Emergency (ER) | payer MEDICARE, SELFPAY ==
[2020-10-02 10:03] VITALS: BP 153/106; PULSE 91; RESP 16; TEMP 36.7; O2SAT 95; BMI 32.5
--- NOTE | 2020-10-02 10:19 | EDS_ITS ---
HPI History of Present Illness Chief Complaint: Upper Extremity Injury Detail of Chief Complaint: Right shoulder pain x2 months Informant: patient Onset/Context/Timing Current Severity: 07/22 Narrative Narrative: Patient presents to the emergency department complaint of right shoulder pain for the last 2 months. Patient denies any trauma. Patient has been seen in urgent care and had x-rays couple months ago that just showed some arthritis. Patient also has been seen by Dr. Willam Taylor who gave her cortisone injections in it x2. Patient states the initial shot did seem to help for some time but then when she got the second shot it did not really seem to help her. Patient states pain worse with movement. Patient has a hard time sleeping at night because of the pain. She is been taking Tylenol but not get much relief with that. Patient also has seen her primary care physician who ordered physical therapy and she went to physical therapy yesterday. Pain was more severe this morning. Patient denies any chest pain or shortness of breath. Patient otherwise has no medical history. [facility] Medical History (Updated 10/02/20 @ 10:[address] Yeyo Beth ) Glaucoma Home Medications alendronate 70 mg PO QWEEK 10/02/20 [History Last Taken Unknown] amlodipine 5 mg PO DAILY 10/02/20 [History Last Taken Unknown] atorvastatin 40 mg PO DAILY 10/02/20 [History Last Taken Unknown] ergocalciferol (vitamin D2) 50,000 unit PO QWEEK 10/02/20 [History Last Taken Unknown] hydrocodone-acetaminophen 1 tab PO Q4H PRN PRN 2 Days #15 tablet 10/02/20 [Rx Last Taken Unknown] Allergy/AdvReac Type Severity Reaction Status Date / Time No Known Allergies Allergy Verified 10/02/20 10:02 Social History Smoking Status: Never smoker [facility] ED Constitutional Constitutional ED: Reports systems reviewed and no addt'l complaints, except as documented; Denies body ache(s), change in weight or chills Eyes Eyes: Denies acute decrease in peripheral vision, change in vision, double vision or loss of vision ENT ENT ED: Reports none; Denies ear pain, lip swelling, loss taste/smell, neck pain, otalgia or sore throat Cardiovascular Cardiovascular: Reports none; Denies abdominal pain, chest pain with activity, leg edema, lightheadedness, palpitations, rapid heart rate or syncope Respiratory/Chest Respiratory/Chest: Reports none; Denies change in mental status, dry cough, dyspnea, hemoptysis, shortness of breath at rest or shortness of breath with exertion Gastrointestinal Gastrointestinal: Reports none; Denies abdominal pain, change in stool omid acter, diarrhea, hematemesis, hematochezia, melena, rectal bleeding or vomiting Genitourinary Genitourinary ED: Reports none; Denies abdominal discomfort, anuria, dysuria, genital pain or polyuria Musculoskeletal Musculoskeletal: Reports none and other Details: Right shoulder pain ; Denies arthralgias, back pain, difficulty walking, extremity pain, muscle weakness or myalgias Integumentary Reports none; Denies abscess or rash Neurologic Neurologic: Reports none; Denies abnormal gait, confusion, focal weakness, frequent falls, headache(s), loss of vision, numbness, paresthesias, radicular pain, vertigo or weakness Psychiatric Psychiatric: Reports systems reviewed and no addt'l complaints, except as documented and none; Denies behavioral changes, confusion, difficulty concentrating, hallucinations, suicidal ideation, tactile hallucinations or visual hallucinations Endocrine Endocrinology: Denies none, cold intolerance, excessive sweating, fatigue or heat intolerance Hematologic/Lymphatic Hematologic/Lymphatic: Reports none; Denies anemia, easy bleeding or easy bruising Allergic/Immunologic Allergic/Immunologic ED: Denies as per HPI, none, lip swelling, mouth swelling, throat swelling, tongue swelling or hives EXAM Physical Exam Const Vital Signs: 10/02/20 10:03 Temperature 98.1 F Temperature Source Temporal Pulse Rate 91 Respiratory Rate 16 Blood Pressure 153/106 H Blood Pressure Mean 121 Pulse Ox 95 Oxygen Delivery Method Room Air Positive well nourished and well developed General Appearance ED: well developed and NAD HEENT Reports TM's clear and moist mucous membranes normocephalic and atraumatic; Negative for trauma or tenderness Tympanic Membrane ED: Yes TM's clear Eyes PERRL and EOMs intact bilaterally General Eye ED: Negative for pale conjunctiva or scleral icterus Neck no lymphadenopathy, supple and no JVD General: Negative for tenderness Chest Wall inspection of chest normal and palpation of chest normal Chest: Negative for tenderness Resp normal respiratory effort and clear to auscultation bilaterally Effort and Inspection: Negative for respiratory distress or pain with movement Auscultation: Negative for rhonchi, wheezes or diminished lung sounds Cardio regular rate, regular rhythm, S1 normal heart sound, S2 normal heart sound and no murmurs Peripheral Pulses: pulses 2+ throughout GI normal to inspection, nondistended, normoactive bowel sounds, soft to palpation, non-tender, non-distended and no masses Back/Spine no CVA tenderness and no thoracic nor lumbar tenderness Extremity normal to inspection Extremity Narrative: Evaluation of the right shoulder reveals tenderness palpation anteriorly over the glenohumeral joint. Patient has pain with abduction of the shoulder and can only abduct to about 70 degrees before she has significant discomfort. There is no erythema or warmth noted to the joint. She has a hard time resisting abduction because of pain. General Extremety ED: Negative for edema General Extremity: Negative for edema Neuro oriented x3, CN's II-XII intact bilaterally, no sensory deficits noted and gait normal Sensorium / Orientation: awake, alert, oriented to person, oriented to place and oriented to time Motor Exam: strength 5/5 throughout and strength abnormal Psych mental status grossly normal Skin no rashes or lesions noted and no wounds MDM MDM MDM Narrative Medical decision making narrative: At this point patient is already had imaging of the shoulder I do not feel repeat imaging is indicated as she has had no trauma. Plan will be to refer patient to orthopedic surgery for follow-up and give a sling for comfort as needed. Patient also given a prescription for [place] for pain. She is advised to take a daily stool softener to prevent constipation and to take the medication with food. Discharge Plan Triage Chief Complaint: Upper Extremity Injury ED Provider: Yeyo Beth Dx/Rx/DC Orders Clinical Impression: Acute pain of right shoulder Instructions: Shoulder Problems, ED Shoulder Pain, Uncertain Cause Prescriptions: New hydrocodone-acetaminophen [hydrocodone-acetaminophen] 1 TABLET tablet 1 tab PO Q4H PRN PRN (Reason: Pain) 2 Days Qty: 15 RF: 0 No Action atorvastatin 40 mg tablet 40 mg PO DAILY RF: 0 alendronate 70 mg tablet 70 mg PO QWEEK RF: 0 amlodipine 5 mg tablet 5 mg PO DAILY RF: 0 ergocalciferol (vitamin D2) 1,250 mcg (50,000 unit) capsule 50,000 unit PO QWEEK RF: 0 Primary Care Provider: Lane Vazquez Referrals: Gaston Tate MD [STAFF PHYSICIAN] - 3-[address] Vazquez MD [Primary Care Provider] - Disposition Disposition: Home, Self Care
[2020-10-02 10:33] VITALS: BP 153/106; PULSE 91; RESP 18
== END 2020-10-02 10:53 | disposition home or self-care (01) ==
LOC: ED 10:43
PROVIDERS: Emergency Provider Emergency Medicine; PCP Internal Medicine
DX: M25.511 Pain in right shoulder (principal); H40.9 Unspecified glaucoma; M19.90 Unspecified osteoarthritis, unspecified site; Z79.899 Other long term (current) drug therapy
CPT/HCPCS: 99283

== ENCOUNTER 2021-05-06 10:09 | Emergency (ER) | payer MEDICARE, SELFPAY ==
[2021-05-06 10:10] VITALS: BP 182/85; PULSE 89; RESP 18; TEMP 36.1; O2SAT 100; BMI 36.2
[2021-05-06] MEDS: HYDROcodone Bitartrate/Apap 5/325 Tablet PO (10:52)
--- NOTE | 2021-05-06 10:55 | RAD_ITS ---
STUDY: X-RAY - RIGHT SCAPULA REASON FOR EXAM: Female, 75 years old. Pain following a fall. TECHNIQUE: 2 view(s) of the scapula were obtained. COMPARISON: None. FINDINGS: Normal scapula, including the osseous glenoid rim, acromion, scapular neck, spine, coracoid process, and visualized body. Normal glenohumeral articulation. There is hypertrophic osteoarthrosis of the acromioclavicular joint with inferior osseous spur formation. Normal visualized humeral head. Normal visualized pulmonary apex. RAD/Scapula IMPRESSION: Osteoarthritis of the acromioclavicular joint. Electronically Signed: Gaurav Foster MD at 11:15 EST ,
--- NOTE | 2021-05-06 10:55 | RAD_ITS ---
STUDY: X-RAY - RIGHT SHOULDER REASON FOR EXAM: Female, 75 years old. Injury TECHNIQUE: 2 view(s) of the shoulder. COMPARISON: None. FINDINGS: Normal glenohumeral articulation. There is degenerative arthrosis of the acromioclavicular joint without inferior osseous spur formation. Normal acromion. Normal humeral head and visualized proximal humerus. The soft tissue structures are unremarkable. Normal visualized pulmonary apex. RAD/Shoulder min 2 Views IMPRESSION: Degenerative changes of the acromioclavicular joint. Electronically Signed: Gaurav Foster MD at 11:15 EST ,
--- NOTE | 2021-05-06 10:55 | RAD_ITS ---
STUDY: X-RAY - RIGHT FOOT CLINICAL: Female, 75 years old. Foot pain following a fall. TECHNIQUE: 3 view(s) of the foot. COMPARISON: None. FINDINGS: Normal talus, calcaneus, and tarsal bones. Normal visualized subtalar, talonavicular, calcaneocuboid, tarsal and tarsometatarsal articulations. Normal metatarsi. There is degenerative arthrosis of the metatarsophalangeal joint of the hallux with a hallux valgus deformity. Normal tibial and fibular sesamoid bones. Normal interphalangeal joint of the great toe. Normal phalanges of the great toe. Normal second through fifth metatarsophalangeal joints. Normal interphalangeal joints and phalanges of the lesser toes. The soft tissue structures are unremarkable. RAD/Foot min 3 Views IMPRESSION: Hallux valgus deformity. Electronically Signed: Gaurav Foster MD at 11:14 EST ,
--- NOTE | 2021-05-06 10:55 | RAD_ITS ---
STUDY: X-RAY - RIGHT ANKLE REASON FOR EXAM: Female, 75 years old. Pain following a fall. TECHNIQUE: 3 view(s) of the ankle. COMPARISON: None. FINDINGS: Normal visualized distal tibia and fibula. Normal medial and lateral malleoli. Normal tibiotalar articulation and ankle mortise. A spur is seen at the insertion of the Achilles tendon. The visualized subtalar, talonavicular, calcaneocuboid and tarsal articulations are normal. Mild soft tissue swelling. RAD/Ankle min 3 Views IMPRESSION: Mild soft tissue swelling. Electronically Signed: Gaurav Foster MD at 11:14 EST ,
--- NOTE | 2021-05-06 11:36 | EDS_ITS ---
HPI History of Present Illness Chief Complaint: Fall Informant: patient and EMS Narrative Narrative: Very pleasant 75-year-old female presents the emergency room following a fall. Patient states she is on her way to work when she slipped on some water from the rain. She states that she fell backwards injuring her right scapula and her right ankle and foot. She has not been ambulatory since the fall. She denies any head injury or loss of consciousness. No hip chest or abdominal symptoms. No back or neck complaints PFSH PFS Medical History Glaucoma HLD (hyperlipidemia) HTN (hypertension) Home Medications amlodipine 5 mg PO DAILY 10/02/20 [History Last Taken Unknown] atorvastatin 40 mg PO DAILY 10/02/20 [History Last Taken Unknown] hydrocodone-acetaminophen 1 tab PO Q6H PRN PRN 3 Days #12 tablet 05/06/21 [Rx Last Taken Unknown] Allergy/AdvReac Type Severity Reaction Status Date / Time No Known Allergies Allergy Verified 05/06/21 10:14 Social History (Updated 05/06/21 @ 11:[address] Butch Trujillo DO) Smoking Status: Never smoker substance use type: does not use ROS ROS ED Constitutional Constitutional ED: Denies chills, fever(s) or weight loss Eyes Eyes: Denies change in vision or diplopia ENT ENT ED: Denies ear pain, rhinorrhea or sore throat Cardiovascular Cardiovascular: Denies chest pain, orthopnea, palpitations or racing heartbeat Respiratory/Chest Respiratory/Chest: Denies cough, dyspnea or orthopnea Gastrointestinal Gastrointestinal: Denies abdominal pain, diarrhea, nausea or vomiting Genitourinary Genitourinary ED: Denies dysuria, hematuria or urinary frequency Musculoskeletal Musculoskeletal: Reports other Details: See history of present illness ; Denies arthralgias or myalgias Integumentary Denies abscess or rash Neurologic Neurologic: Denies headache(s) or weakness Psychiatric Psychiatric: Denies anxiety, depression, suicidal ideation or suicidal thoughts Endocrine Endocrinology: Denies polydipsia, polyphagia or polyuria Allergic/Immunologic Allergic/Immunologic ED: Denies mouth swelling, tongue swelling or urticaria EXAM Physical Exam Const Vital Signs: 05/06/21 10:10 05/06/21 10:14 Temperature 97 F L Temperature Source Temporal Pulse Rate 89 Respiratory Rate 18 Respiratory Effort Normal Non-Labored Blood Pressure 182/85 H Blood Pressure Mean 117 Pulse Ox 100 Oxygen Delivery Method Room Air Positive well nourished and well developed General Appearance ED: well developed HEENT Reports normocephalic, head/scalp atraumatic, TM's clear and moist mucous membranes Negative for trauma Tympanic Membrane ED: Yes TM's clear Eyes PERRL and EOMs intact bilaterally Neck no lymphadenopathy, supple and no JVD Resp normal respiratory effort and clear to auscultation bilaterally Cardio regular rate, regular rhythm and no murmurs GI normal to inspection, nondistended, normoactive bowel sounds and non-tender Palpation: soft Back/Spine no CVA tenderness and normal ROM Extremity Extremity Narrative: Tender to palpation over the lateral and anterior right ankle. Mild soft tissue swelling. Tenderness of the fifth metatarsal. No fibular head pain. Tender palpation over the scapula. No clavicle tenderness General Extremety ED: Negative for edema General Extremity: Negative for edema Neuro oriented x3 and CN's II-XII intact bilaterally Sensorium / Orientation: alert Motor Exam: strength 5/5 throughout Psych mental status grossly normal Mood & Affect: Negative for depressed or tearful Skin no rashes or lesions noted and no wounds MDM MDM MDM Narrative Medical decision making narrative: My interpretations of the plain films of the right ankle right foot right scapula and right shoulder is no acute fracture. Patient will have her foot and ankle Jayjay wrapped. Crutches as needed. She received [place] here and I can write for some pain medicine at home. Radiography Diagnostic Testing: Clinical Impression(s) from Imaging Studies Ankle X-Ray 05/06/21 10:55 IMPRESSION: Mild soft tissue swelling. Electronically Signed: Gaurav Foster MD at 11:14 EST , Foot X-Ray 05/06/21 10:55 IMPRESSION: Hallux valgus deformity. Electronically Signed: Gaurav Foster MD at 11:14 EST , Scapula X-Ray 05/06/21 10:55 IMPRESSION: Osteoarthritis of the acromioclavicular joint. Electronically Signed: Gaurav Foster MD at 11:15 EST , Shoulder X-Ray 05/06/21 10:55 IMPRESSION: Degenerative changes of the acromioclavicular joint. Electronically Signed: Gaurav Foster MD at 11:15 EST , Discharge Plan Triage Chief Complaint: Fall ED Provider: Butch Trujillo Dx/Rx/DC Orders Clinical Impression: Fall, Contusion of right scapula, Foot sprain, Ankle sprain Instructions: ED Soft Tissue Contusion, ED Ankle Sprain (Adult) Prescriptions: New hydrocodone-acetaminophen [hydrocodone-acetaminophen] 1 TABLET tablet 1 tab PO Q6H PRN PRN (Reason: Pain) 3 Days Qty: 12 RF: 0 No Action atorvastatin 40 mg tablet 40 mg PO DAILY RF: 0 amlodipine 5 mg tablet 5 mg PO DAILY RF: 0 Primary Care Provider: Lane Vazquez Referrals: Lane Vazquez MD [Primary Care Provider] - 10-14 Days if not better Disposition Disposition: Home, Self Care
[2021-05-06 11:57] VITALS: BP 188/120; PULSE 60
--- NOTE | 2021-05-07 12:00 | CASEMGMT ---
HAJA LEACH ED follow-up: Date of ER visit: 05/06/2021 Presenting ER complaint: fall HAJA LEACH placed call to patient's telephone number listed on demographics and patient answered. HAJA LEACH introduced self and role at [facility]. Patient reports still in a lot of pain today. When asked if taking prescribed pain medication, patient states she has not been able to obtain prescription from pharmacy yet and is waiting for her daughter to bring it later today. 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 Patient states she is not using provided RHONDA wrap but has been using a boot she has at home to relieve pressure on lower leg. Patient instructed on using ice and elevation for pain relief. Patient reports she has been using a cane but admits to difficulty ambulating on injured leg. HAJA LEACH encouraged patient to use provided crutches as needed to assist with mobility. Patient voiced understanding. Patient lives alone but reports her landlord lives next door and would be available if needed for help. Patient does also have a medical alert. Patient encouraged to schedule follow-up appointment. HAJA LEACH placed call to [employer] to inquire about prescription delivery. Per pharmacy staff, prescription delivery available at no cost within 10 miles of pharmacy. Call placed to patient and patient agreeable to prescription delivery. HAJA LEACH again called [employer] to request prescription delivery for this patient. Per pharmacy staff, patient must call into pharmacy to pay $1.86 cost of medication over the phone prior to delivery and medication will then be delivered to patient's door between the hours of 2:00 p.m. and 6:00 p.m. today. Call placed to patient to inform of need for payment prior to delivery and timeframe for delivery. Patient expressed appreciation for coordination of prescription delivery and states she will call pharmacy to pay for medication. Patient instructed on medication, including possible side effects. Voiced understanding. Patient denies further questions or needs. HAJA Botello CM
== END 2021-05-06 12:24 | disposition home or self-care (01) ==
PROVIDERS: Emergency Provider Emergency Medicine; PCP Internal Medicine; Visit Provider Emergency Medicine
DX: S40.011A Contusion of right shoulder, initial encounter (principal); S93.401A Sprain of unspecified ligament of right ankle, initial encounter; I10 Essential (primary) hypertension; E78.5 Hyperlipidemia, unspecified; W01.0XXA Fall on same level from slipping, tripping and stumbling without subsequent striking against object, initial encounter; S93.601A Unspecified sprain of right foot, initial encounter; Y93.9 Activity, unspecified; Y92.9 Unspecified place or not applicable; Z79.899 Other long term (current) drug therapy
CPT/HCPCS: 73010; 73030; 73610; 73630; 99283

== ENCOUNTER 2022-02-05 20:41 | Emergency (ER) | payer MEDICARE, SELFPAY ==
[2022-02-05 20:42] VITALS: BP 136/66; PULSE 111; RESP 18; TEMP 37.8; O2SAT 97; BMI 34.6
--- NOTE | 2022-02-05 21:02 | EDS_ITS ---
HPI HPI - URI History of Present Illness Chief Complaint: Cough Informant: patient Onset/Context/Timing Onset: Today Context: Gradual Onset Timing: Continuous Quality: Malaise, cough, sore throat Current Severity: Moderate Maximum Severity: Moderate Worsened by: - (Nothing) Relieved by: - (Nothing but has not treated subjective fevers) Associated Symptoms Associated Symptoms: Positive for Nonproductive cough Narrative Narrative: Patient present with URI symptoms including sore throat, cough, subjective fever, malaise since early this morning, she has had symptoms now for maybe 16 or 17 hours. She denies any myalgias. She is vaccinated against COVID. No known sick contacts. No home testing prior to presentation here. She denies having any dyspnea, chest discomfort, abdominal discomfort or other GI symptoms. ROS ROS ED Constitutional Constitutional ED: Reports fever(s), malaise and subjective; Denies chills Eyes Eyes: Denies change in vision or diplopia ENT ENT ED: Reports sore throat; Denies ear pain or rhinorrhea Cardiovascular Cardiovascular: Denies chest pain or palpitations Respiratory/Chest Respiratory/Chest: Reports cough; Denies dyspnea Gastrointestinal Gastrointestinal: Denies abdominal pain, diarrhea, nausea or vomiting Genitourinary Genitourinary ED: Denies dysuria or hematuria Musculoskeletal Musculoskeletal: Denies myalgias or neck pain Integumentary Denies abscess or rash Neurologic Neurologic: Denies headache(s), paresthesias or weakness Psychiatric Psychiatric: Denies depression or suicidal thoughts Endocrine Endocrinology: Denies polydipsia or polyuria [facility] Medical History Glaucoma HLD (hyperlipidemia) HTN (hypertension) Home Medications amlodipine 5 mg tablet 5 mg PO DAILY 10/02/20 [History Last Taken Unknown] atorvastatin 40 mg tablet 40 mg PO DAILY 10/02/20 [History Last Taken Unknown] hydrocodone-acetaminophen 5-325mg 5mg-325mg 1 tab PO Q6H PRN PRN Pain 3 days #12 TABLETS 05/06/21 [Rx Last Taken Unknown] nirmatrelvir 300 mg (150 mg x2)-ritonavir 100 mg tablet,dose pack(EUA) (Paxlovid) See Rx Instructions PO .COMPLEX #30 tabs 02/05/22 [Rx Last Taken Unknown] Allergy/AdvReac Type Severity Reaction Status Date / Time No Known Allergies Allergy Verified 02/05/22 20:45 Social History Smoking Status: Never smoker substance use type: does not use EXAM Physical Exam Const Vital Signs: 02/05/22 20:42 02/05/22 21:02 Temperature 100.1 F H Temperature Source Temporal Pulse Rate 111 H Respiratory Rate 18 Respiratory Effort Normal Blood Pressure 136/66 H Blood Pressure Mean 89 Pulse Ox 97 Oxygen Delivery Method Room Air Room Air Positive well nourished and well developed General Appearance ED: well developed and NAD HEENT Reports moist mucous membranes HEENT Narrative: Mild posterior oropharyngeal erythema. No tonsillar enlargement, exudates, trismus, asymmetry, abscess. normocephalic and atraumatic Eyes PERRL and EOMs intact bilaterally Neck no lymphadenopathy, supple and no meningeal signs Resp normal respiratory effort and clear to auscultation bilaterally Cardio no murmurs Cardio Narrative: Mild tachycardia, examined while febrile Rate: regular rate Rhythm: regular rhythm Back/Spine no CVA tenderness and normal ROM Extremity normal to inspection and full ROM Neuro oriented x3, CN's II-XII intact bilaterally and no sensory deficits noted Sensorium / Orientation: alert Motor Exam: strength 5/5 throughout Psych mental status grossly normal Skin Lesions: no lesions Rashes: no rashes MDM MDM MDM Narrative Medical decision making narrative: Chest x-ray 2 views of my interpretation negative for any acute pneumonia, radiology in agreement. Rapid COVID returned positive. She was given Tylenol for fever. She is clinically and hemodynamically stable for outpatient treatment, without hypoxemia. She is a candidate for Paxlovid, prescribed that and advised to hold her atorvastatin in the meantime. Radiography Diagnostic Testing: Clinical Impression(s) from Imaging Studies Chest X-Ray 02/05/22 21:10 IMPRESSION: No acute cardiopulmonary pathology.. Electronically Signed: Stevo Lord MD at 21:39 EST , Discharge Plan Triage Chief Complaint: Cough ED Provider: Shane Mo Dx/Rx/DC Orders Clinical Impression: COVID-19 Instructions: Coronavirus Disease 2019 (COVID-19): Caring for Yourself or Others Prescriptions: New Paxlovid (EUA) 300 mg (150 mg x 2)-100 mg tablets,dose pack See Rx Instructions .ROUTE .COMPLEX Qty: 30 0RF Rx Instructions: take TWO 150 mg tablets of nirmatrelvir with ONE 100 mg tablet of ritonavir twice daily for 5 days Continued amlodipine 5 mg tablet 5 mg PO DAILY Label Comments: Take 1 tablet by mouth once daily. hydrocodone-acetaminophen 1 TABLET tablet 1 tab PO Q6H PRN PRN (Reason: Pain) 3 Days Qty: 12 0RF Held atorvastatin 40 mg tablet 40 mg PO DAILY Hold Instructions: Resume on 02/14/22. Label Comments: Take 1 tablet by mouth daily at bedtime. For cholesterol. Primary Care Provider: Lane Vazquez Referrals: Lane Vazquez MD [Primary Care Provider] - Activity Restrictions/Additional Instructions: Try to get a home portable pulse oximeter and closely watch your oxygen levels periodically. If you stay below 90% for more than a minute or so, and/or you are feeling like your breathing is getting worse, return to the emergency department for further evaluation. Currently, CDC recommendations state that you should stay home through day 5 of symptoms (Wednesday, 02/09 for you), then as long as symptoms are improving, if you need to go to work or somewhere else you may for days 6-10 as long as you are wearing a mask the entire time. If you are feeling better after day 10 you may resume life is normal. Disposition Disposition: Home, Self Care
[2022-02-05] MEDS: Acetaminophen 500 MG Tablet 1000 MG PO (21:08)
--- NOTE | 2022-02-05 21:10 | RAD_ITS ---
STUDY: X-RAY CHEST REASON FOR EXAM: Female, 76 years old. cough, fever TECHNIQUE: PA and lateral COMPARISON: 06/16/2018 FINDINGS: The lungs are clear and expanded. There is no demonstrated pleural abnormality. Normal size heart. Normal mediastinum and greg. Normal visualized pulmonary arteries. Normal visualized aortic arch and descending thoracic aorta. Dorsal spine and shoulders demonstrate degenerative change. Normal visualized ribs, and clavicles. There is no demonstrated abnormality of the visualized soft tissue structures of the upper abdomen. RAD/Chest PA and Lateral IMPRESSION: No acute cardiopulmonary pathology.. Electronically Signed: Stevo Lord MD at 21:39 EST ,
== END 2022-02-05 22:31 | disposition home or self-care (01) ==
PROVIDERS: Emergency Provider Emergency Medicine; PCP Internal Medicine; Visit Provider Emergency Medicine
DX: U07.1 COVID-19 (principal); I10 Essential (primary) hypertension; E78.5 Hyperlipidemia, unspecified
CPT/HCPCS: 71046; 87428; 87880; 99282

== ENCOUNTER 2022-11-11 11:30 | Emergency (ER) | payer MEDICARE, SELFPAY ==
[2022-11-11 11:31] VITALS: BP 127/109; PULSE 75; RESP 14; TEMP 36; O2SAT 99; BMI 32.1
--- NOTE | 2022-11-11 11:51 | EX.ED.DYSGE1 ---
HPI History of Present Illness Chief Complaint: Syncope Informant: patient Onset/Context/Timing Onset: Today Narrative Narrative: Patient presents after brief syncopal episode at work. Patient states she got up this morning and took her medication. She does not eat breakfast in the mornings. She states she got to work and grabbed her apron. 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 She told her boss she did not feel well. She apparently had a brief syncopal episode. Patient denies having chest pain or shortness of breath. She states has been eating and drinking well recently. She has not had any recent change in her medications. [facility] Medical History Glaucoma HLD (hyperlipidemia) HTN (hypertension) Home Medications amlodipine 5 mg tablet 5 mg PO DAILY 10/02/20 [History Last Taken Unknown] atorvastatin 40 mg tablet 40 mg PO DAILY 10/02/20 [History Last Taken Unknown] hydrocodone-acetaminophen 5-325mg 5mg-325mg 1 tab PO Q6H PRN PRN Pain 3 days #12 TABLETS 05/06/21 [Rx Last Taken Unknown] nirmatrelvir 300 mg (150 mg x2)-ritonavir 100 mg tablet,dose pack (Paxlovid) See Rx Instructions PO .COMPLEX #30 tabs 02/05/22 [Rx Last Taken Unknown] Allergy/AdvReac Type Severity Reaction Status Date / Time No Known Allergies Allergy Verified 11/11/22 11:34 Social History Smoking Status: Never smoker substance use type: does not use ROS ROS ED Constitutional Constitutional ED: Denies chills or fever(s) Eyes Eyes: Denies change in vision or discharge from eye(s) ENT ENT ED: Denies discharge from eye(s), rhinorrhea or sore throat Cardiovascular Cardiovascular: Denies chest pain or palpitations Respiratory/Chest Respiratory/Chest: Denies cough or dyspnea Gastrointestinal Gastrointestinal: Denies abdominal pain, nausea or vomiting Genitourinary Genitourinary ED: Denies difficulty urinating or dysuria Musculoskeletal Musculoskeletal: Denies back pain or extremity pain Integumentary Denies Abrasions or rash Neurologic Neurologic: Denies headache(s) or weakness Psychiatric Psychiatric: Denies anxiety or depression Allergic/Immunologic Allergic/Immunologic ED: Denies lip swelling or urticaria EXAM Physical Exam Const Vital Signs: 11/11/22 11:31 11/11/22 11:35 11/11/22 12:31 Temperature 96.8 F L Temperature Source Temporal Pulse Rate 75 78 Respiratory Rate 14 14 Respiratory Effort Normal Respiratory Pattern Normal Blood Pressure 127/109 H 146/76 H Blood Pressure Mean 115 99 Pulse Ox 99 98 Oxygen Delivery Method Room Air Room Air 11/11/22 13:29 Temperature Temperature Source Pulse Rate 74 Respiratory Rate 16 Respiratory Effort Respiratory Pattern Blood Pressure 141/67 H Blood Pressure Mean 91 Pulse Ox 100 Oxygen Delivery Method Room Air Positive well nourished and well developed General Appearance ED: well developed HEENT Reports normocephalic and head/scalp atraumatic Eyes PERRL and EOMs intact bilaterally Neck supple Chest Wall inspection of chest normal and palpation of chest normal Resp normal respiratory effort and clear to auscultation bilaterally Cardio regular rate and regular rhythm GI normal to inspection, nondistended, normoactive bowel sounds Palpation: soft Extremity normal to inspection Neuro oriented x3 and no sensory deficits noted Sensorium / Orientation: alert Motor Exam: strength 5/5 throughout Psych mental status grossly normal Skin no rashes or lesions noted MDM MDM MDM Narrative Medical decision making narrative: Patient placed on library monitor. Labwork obtained to evaluate for leukocytosis, anemia, and electrolyte derangement. EKG obtained to evaluate for cardiac arrhythmia/ischemia. Chest x-ray obtained to evaluate for acute lung pathology, cardiac size, or mediastinal abnormality. IV fluids initiated. Lab Data Attestation: I reviewed the patient's lab results. Labs: Laboratory Results - last 24 hr 11/11/22 11/11/22 11:45 13:15 WBC 4.9 RBC 4.23 Hgb 12.7 Hct 39.7 MCV 93.9 MCH 30.0 MCHC 32.0 RDW Std Deviation 45.9 H RDW Coeff of Tello 13.5 Plt Count 272 MPV 9.8 Immature Gran % (Auto) 0.200 Neut % (Auto) 49.5 Lymph % (Auto) 43.4 H [place] % (Auto) 6.3 Eos % (Auto) 0.0 Baso % (Auto) 0.6 Absolute Neuts (auto) 2.4 Absolute Lymphs (auto) 2.13 Nucleated RBC % 0 Sodium 142 Potassium 3.8 Chloride 109 H Carbon Dioxide 26.0 Anion Gap 7 BUN 14 Creatinine 2.01 H Estim Creat Clear Calc 22.79 Est GFR (MDRD) Af Amer 31 L Est GFR (MDRD) Non-Af 26 L BUN/Creatinine Ratio 7.0 L Glucose 168 H Calcium 9.1 Troponin I High Sens 9 Urine Color Yellow Urine Clarity Sl. Cloudy Urine pH 6.5 Ur Specific [place] 1.015 Urine Protein 30 H Urine Glucose (UA) Normal Urine Ketones Negative Urine Occult Blood 10 H Urine Nitrite Negative Urine Bilirubin Negative Urine Urobilinogen 1 H Ur Leukocyte Esterase 25 H Urine RBC 0 SEEN Urine WBC 0-5 SEEN Ur Squamous Epith Cells 10-25 SEEN Urine Bacteria 1+ Urine Mucus 0 SEEN Radiography Chest X-Ray - ED: 1 View, Read by ED Physician, Normal, Heart, Lungs and Mediastinum Diagnostic Testing: Clinical Impression(s) from Imaging Studies Chest X-Ray 11/11/22 11:55 IMPRESSION: Degenerative changes, as described above. No demonstrated acute cardiopulmonary process. Electronically Signed: Rony Nino MD at 12:52 EDT , EKG Initial EKG: Attestation: I personally reviewed and interpreted this EKG as follows: Interpretation: Sinus Rhythm (Sinus at 71 with no acute ischemia.) Treatment and Re-Evaluation :: CBC is unremarkable with normal white count and hemoglobin. Chemistry studies significant for a creatinine of 2.01. I was able to review her records and [facility]. In August of this year she had a creatinine of 1.56. Glucose is normal at 168. Troponin is normal. Urinalysis is a contaminated sample with no overt signs of infection. Chest x-ray per my interpretation reveals no acute findings. Radiology interpretation is reviewed and agrees. EKG is sinus at 71 with no acute ischemia. Patient has had no significant arrhythmias noted on library monitor. After liter of IV fluids patient does feel improved. She is up ambulating to the restroom and back without difficulty. At this time I do feel patient's symptoms are consistent with vasovagal syncope and dehydration. I do not feel she needs observation in the hospital for cardiac monitoring as she did have a prodrome with no chest pain or palpitations. Patient instructed to increase p.o. fluids. Return instructions given. Discharge Plan Triage Chief Complaint: Syncope ED Provider: Marleen Manzanares Dx/Rx/DC Orders Clinical Impression: Vasovagal syncope, Dehydration Instructions: ED Dehydration (Adult), ED Fainting, Vagal Reaction Prescriptions: No Action atorvastatin 40 mg tablet 40 mg PO DAILY Hold Instructions: Resume on 02/14/22. Patient Comments: Take 1 tablet by mouth daily at bedtime. For cholesterol. amlodipine 5 mg tablet 5 mg PO DAILY Patient Comments: Take 1 tablet by mouth once daily. hydrocodone-acetaminophen 1 TABLET tablet 1 tab PO Q6H PRN PRN (Reason: Pain) 3 Days Qty: 12 0RF Paxlovid 300 mg (150 mg x 2)-100 mg tablets,dose pack See Rx Instructions .ROUTE .COMPLEX Qty: 30 0RF Rx Instructions: take TWO 150 mg tablets of nirmatrelvir with ONE 100 mg tablet of ritonavir twice daily for 5 days Primary Care Provider: Lane Vazquez Referrals: Lane Vazquez MD [[facility]] - 1 Week Disposition Disposition: Home, Self Care
[2022-11-11] MEDS: 0.9% Normal Saline 1,000 ML 1000 ML IV (11:53)
--- NOTE | 2022-11-11 11:55 | RAD_ITS ---
STUDY: X-RAY CHEST REASON FOR EXAM: Female, 77 years old. sob PT STATES SHE FELT LIGHT HEADED AND PASSED OUT EARLIER THIS MORNING TECHNIQUE: Single AP portable view of the chest. COMPARISON: February 05, 2022 FINDINGS: The lungs are clear and expanded. There is no demonstrated pleural abnormality. Normal size heart. Normal mediastinum and greg. Normal visualized pulmonary arteries. There is atherosclerotic calcification of the aortic arch with tortuosity. There are diffuse degenerative changes of the visualized thoracic spine. Normal visualized ribs, clavicles, and shoulders. There is no demonstrated abnormality of the visualized soft tissue structures of the upper abdomen. RAD/Chest 1 View (Portable) IMPRESSION: Degenerative changes, as described above. No demonstrated acute cardiopulmonary process. Electronically Signed: Rony iNno MD at 12:52 EDT ,
[2022-11-11 12:08] LABS: Absolute Lymphocyte Count 2.13 X10^3/uL (0.83-4.51); Absolute Neutrophil Count 2.4 X10^3/uL (2.0-7.7); Basophil# 0.03 X10^3/uL; Basophil% 0.6 % (0-1); Hematocrit 39.7 % (37-47); Hemoglobin 12.7 g/dL (12.0-15.0); Lymphocyte # 2.13 X10^3/ul (0.83-4.51); Lymphocyte % 43.4 % (19-41); Mean Corpuscular Volume 93.9 fL (81-99); Mean Platelet Vol. 9.8 fl (6.2-12.0); Monocyte# 0.31 X10^3/uL; Monocyte% 6.3 % (0-10); NRBC Flagged by Analyzer 0 % (0-5); Neutrophil # 2.43 X10^3/uL (2.7-7.7); Neutrophil % 49.5 % (47-70); Platelet Count 272 K/mm3 (150-450); RBC Distribution Width CV 13.5 % (11.6-14.6); RBC Distribution Width SD 45.9 fl (35.1-43.9); Red Blood Count 4.23 M/mm3 (4.2-5.4); White Blood Count 4.9 K/mm3 (4.4-11.0)
[2022-11-11 12:22] LABS: Anion Gap 7 (5-15); BUN 14 mg/dL (7-18); Calcium,Total 9.1 mg/dL (8.5-10.1); Chloride 109 mmol/L (98-107); Creatinine, Serum 2.01 mg/dL (0.55-1.02); EST Glomerular Filtration Rate 26 mL/min (>60); Est Glom Filt Rate - Afr Amer 31 mL/min (>60); Estimated Creatinine Clearance 22.79 ml/min; Glucose 168 mg/dL (74-106); Potassium 3.8 mmol/L (3.5-5.1); Sodium Level 142 mmol/L (136-145); Troponin-I HS 9 pg/mL (3.0-54.0)
[2022-11-11 12:31] VITALS: BP 146/76; PULSE 78; RESP 14; O2SAT 98
[2022-11-11 13:25] LABS: Mucous, Urine 0 SEEN /hpf (<or=2+); Red Blood Cells-Urine 0 SEEN /hpf (0-5)
[2022-11-11 13:29] VITALS: BP 141/67; PULSE 74; RESP 16; O2SAT 100
[2022-11-11 13:36] LABS: Color, Urine Yellow (Yellow); Glucose, Dipstick Normal (Normal); Ketone-Dipstick Negative (Negative); Leukocyte Esterase-Dipstick 25 /ul (Negative); Nitrite-Dipstick Negative (Negative); Occult Blood-Urine 10 /ul (Negative); Protein-Dipstick 30 mg/dl (Negative); Specific Gravity, Urine 1.015 (1.002-1.030); Urine Bilirubin Dipstick Negative (Negative); Urine Clarity Sl. Cloudy (Clear); Urine Urobilinogen 1 mg/dl (Normal); Urine pH 6.5 (5.0 - 8.0)
[2022-11-11 13:43] LABS: Bacteria 1+ /hpf (None Seen); Squamous Epithelial Cells - UA 10-25 SEEN /hpf (5-10); White Blood Cells 0-5 SEEN /hpf (0-5)
== END 2022-11-11 14:30 | disposition home or self-care (01) ==
PROVIDERS: Emergency Provider Emergency Medicine; PCP Internal Medicine; Visit Provider Emergency Medicine
DX: R55 Syncope and collapse (principal); E86.0 Dehydration; E78.5 Hyperlipidemia, unspecified; I10 Essential (primary) hypertension; Z79.899 Other long term (current) drug therapy
CPT/HCPCS: 71045; 80048; 81001; 84484; 85025; 93005; 96360; 99285; J7030

== ENCOUNTER 2023-06-12 20:08 | Emergency (ER) | payer MEDICARE, SELFPAY ==
[2023-06-12 20:09] VITALS: BP 130/46; PULSE 77; RESP 18; TEMP 36.5; O2SAT 99; BMI 28.0
--- NOTE | 2023-06-12 20:23 | CT_ITS ---
INDICATION: abdominal pain EXAMINATION: CT ABDOMEN AND PELVIS WITH CONTRAST - CT Abdomen And Pelvis W/ Contrast Injection TECHNIQUE: Helically acquired images were obtained of the abdomen and pelvis following IV contrast. A radiation dose optimization technique was used for this scan. IV Contrast dosage and agent: 100 mL Isovue-370. Oral contrast: None. COMPARISON: CT chest July 23, 2018 FINDINGS: LOWER CHEST: Mild bibasilar atelectasis. No cardiomegaly or pericardial effusion. No appreciable coronary artery calcifications. No hiatal hernia. There is some fluid in the esophagus which may represent reflux. LIVER: Homogeneous. No focal mass. GALLBLADDER AND BILIARY TREE: No calcified gallstones. Gallbladder is slightly distended and there is a small amount of pericholecystic fluid. There is also mild intrahepatic biliary ductal dilation. No definite common bile duct distention for age; up to 10 mm. No visible stone. PANCREAS: 11 x 10 x 13 mm well-circumscribed, round, homogenous fluid density pancreatic head. Superior separate from the pancreatic duct. Correlation with pancreas MRI and MRCP is recommended. SPLEEN: Normal size without focal cystic or solid mass. ADRENAL GLANDS: No nodules. KIDNEYS, URETERS and BLADDER: Normal renal size and position. No mass. No hydronephrosis. Bladder is unremarkable. PERITONEUM: No ascites or free air. No other fluid collection. BOWEL: Normal appendix. No abnormally distended bowel loops or air fluid levels. No wall thickening or mass. Scattered diverticuli sigmoid colon without diverticulitis. LYMPH NODES: No enlarged mesenteric or retroperitoneal lymph nodes. VESSELS: Aorta is non-dilated. REPRODUCTIVE ORGANS: Within normal limits ABDOMINAL WALL: No discrete abdominal or pelvic wall hernia. BONES: No lytic or blastic abnormality. Surprisingly absent degenerative endplate changes of the spine. Moderate facet arthropathy lower lumbar spine on the left. CT/Abdomen/Pelvis W IV Cont ONLY IMPRESSION: 1. Mild biliary ductal dilation and mildly distended gallbladder with small amount of pericholecystic fluid suggested. Correlation with ultrasound is recommended for suspected cholecystitis. 2. Well delineated, roughly 10 mm homogenous fluid density pancreatic head. This appears separate from the duct. Pancreatic cyst is favored. Given apparent ductal dilation, correlation with MRCP and pancreas MRI is recommended. 3. Diverticulosis without diverticulitis. Electronically Signed: Jj Elizabeth DO at 22:41 EDT ,
[2023-06-12] MEDS: Ondansetron 4 MG/2 ML Vial IV (20:31)
[2023-06-12] MEDS: 0.9% Normal Saline (500mL Bag) 500 ML 999 ML IV ×2 (20:32→21:11)
[2023-06-12] MEDS: Morphine 4 MG/ML Syringe IV (20:32)
[2023-06-12 20:36] LABS: Absolute Lymphocyte Count 2.39 X10^3/uL (0.83-4.51); Basophil# 0.03 X10^3/uL; Basophil% 0.5 % (0-1); Eosinophils% 1.7 % (0-5); Hematocrit 36.3 % (37-47); Hemoglobin 11.7 g/dL (12.0-15.0); Lymphocyte # 2.39 X10^3/ul (0.83-4.51); Lymphocyte % 40.1 % (19-41); Mean Corp Hgb Conc 32.2 g/dL (32-36); Mean Corpuscular Volume 93.1 fL (81-99); Mean Platelet Vol. 10.3 fl (6.2-12.0); Monocyte# 0.46 X10^3/uL; Monocyte% 7.7 % (0-10); NRBC Flagged by Analyzer 0 % (0-5); Neutrophil # 2.96 X10^3/uL (2.7-7.7); Neutrophil % 49.7 % (47-70); Platelet Count 284 K/mm3 (150-450); RBC Distribution Width CV 14.6 % (11.6-14.6); RBC Distribution Width SD 49.7 fl (35.1-43.9)
--- NOTE | 2023-06-12 20:38 | ED.VIS.BACK ---
HPI <MONICA Carter - Last Filed: 06/12/23 21:56> History of Present Illness Chief Complaint: Back Narrative Narrative: Patient presenting today due to mid back pain that started this afternoon that began to radiate into her abdomen this evening, mainly to the epigastric area. She reports that she has had intermittent nausea and one episode of vomiting. She reports that she felt feverish last night but has not actually had a documented fever. She last had a bowel movement this morning that was normal. She denies any history of abdominal surgery or kidney stones. She denies any chills, hematemesis, melena, hematochezia, diarrhea, and urinary symptoms. PMH includes HTN and HLD. PFSH <MONICA Carter - Last Filed: 06/12/23 21:56> PFSH Medical History Glaucoma HLD (hyperlipidemia) HTN (hypertension) Home Medications amlodipine 5 mg tablet 5 mg PO DAILY 10/02/20 [History Last Taken Unknown] atorvastatin 40 mg tablet 40 mg PO DAILY 10/02/20 [History Last Taken Unknown] Allergy/AdvReac Type Severity Reaction Status Date / Time No Known Allergies Allergy Verified 06/12/23 20:10 Social History Smoking Status: Never smoker substance use type: does not use ROS <MONICA Carter - Last Filed: 06/12/23 21:56> ROS ED Constitutional Constitutional ED: Denies chills or fever(s) Cardiovascular Cardiovascular: Denies chest pain Respiratory/Chest Respiratory/Chest: Denies cough or dyspnea Gastrointestinal Gastrointestinal: Reports abdominal pain, nausea and vomiting; Denies constipation, diarrhea or melena Genitourinary Genitourinary ED: Denies dysuria, hematuria or urinary urgency Musculoskeletal Musculoskeletal: Reports back pain Integumentary Denies rash Neurologic Neurologic: Denies weakness EXAM <MONICA Carter - Last Filed: 06/12/23 21:56> Physical Exam Const Vital Signs: 06/12/23 20:09 06/12/23 22:07 Temperature 97.7 F L Temperature Source Oral Pulse Rate 77 103 H Respiratory Rate 18 17 Blood Pressure 130/46 H 151/76 H Blood Pressure Mean 74 101 Pulse Ox 99 96 Oxygen Delivery Method Room Air Room Air Positive well nourished, well developed and no apparent distress General Appearance ED: well developed HEENT Reports normocephalic and head/scalp atraumatic Mouth ED: Yes moist mucous membranes normal Eyes PERRL and EOMs intact bilaterally Neck full ROM and supple Chest Wall inspection of chest normal Resp normal respiratory effort and clear to auscultation bilaterally Cardio regular rate and regular rhythm GI soft to palpation, non-distended and no masses GI Narrative: Generalized tenderness to palpation worse in the epigastrium, no rigidity, guarding, or peritoneal signs. Negative McBurney's point tenderness, negative Guidry sign. Back/Spine normal ROM and normal to inspection Extremity normal to inspection and full ROM Neuro oriented x3, CN's II-XII intact bilaterally, moves all extremities, no focal motor deficits and no sensory deficits noted Sensorium / Orientation: awake and alert Psych mental status grossly normal and thought process normal Skin no rashes or lesions noted and no wounds <Dr. Jatinder Ceron DO - Last Filed: 06/12/23 22:55> Physical Exam Const Vital Signs: 06/12/23 20:09 06/12/23 22:07 Temperature 97.7 F L Temperature Source Oral Pulse Rate 77 103 H Respiratory Rate 18 17 Blood Pressure 130/46 H 151/76 H Blood Pressure Mean 74 101 Pulse Ox 99 96 Oxygen Delivery Method Room Air Room Air MDM <MONICA Carter - Last Filed: 06/12/23 21:56> [facility] Narrative Medical decision making narrative: Patient presenting today due to epigastric abdominal pain and back pain. She is generalized tenderness to her abdomen that is worse in the epigastrium. Labs will be obtained to rule out leukocytosis, anemia, electrolyte abnormality, pancreatitis, ONELIA, and UTI. CT of the abdomen pelvis will be obtained, she will be given IV fluids, Zofran, and morphine for pain. Workup is pending. Lab Data Attestation: I reviewed the patient's lab results. Lab results narrative: H&H 11.7 and 36.3, creatinine 1.6, AST 64 Labs: Laboratory Results - last 24 hr 06/12/23 06/12/23 20:00 21:20 WBC 6.0 RBC 3.90 L Hgb 11.7 L Hct 36.3 L MCV 93.1 MCH 30.0 MCHC 32.2 RDW Std Deviation 49.7 H RDW Coeff of Tello 14.6 Plt Count 284 MPV 10.3 Immature Gran % (Auto) 0.300 Neut % (Auto) 49.7 Lymph % (Auto) 40.1 Candler % (Auto) 7.7 Eos % (Auto) 1.7 Baso % (Auto) 0.5 Absolute Neuts (auto) 3.0 Absolute Lymphs (auto) 2.39 Nucleated RBC % 0 Sodium 142 Potassium 3.6 Chloride 110 H Carbon Dioxide 27.0 Anion Gap 5 BUN 18 Creatinine 1.60 H Estim Creat Clear Calc 32.32 Est GFR (MDRD) Af Amer 40 L Est GFR (MDRD) Non-Af 33 L BUN/Creatinine Ratio 11.2 Glucose 111 H Calcium 9.0 Total Bilirubin 0.90 AST 64 H ALT 24 Alkaline Phosphatase 114 Total Protein 6.7 Albumin 3.3 Globulin 3.4 Albumin/Globulin Ratio 1.0 Lipase 23 Urine Color Yellow Urine Clarity Clear Urine pH 5.0 Ur Specific Kane 1.025 Urine Protein 15 H Urine Glucose (UA) Normal Urine Ketones 50 H Urine Occult Blood Negative Urine Nitrite Negative Urine Bilirubin 1 H Urine Urobilinogen 4 H Ur Leukocyte Esterase 25 H Urine RBC 0 SEEN Urine WBC 0-5 SEEN Ur Squamous Epith Cells 0 SEEN Urine Bacteria 0 SEEN Hyaline Casts 0-5 SEEN Urine Mucus 0 SEEN Radiography Diagnostic Testing: Clinical Impression(s) from Imaging Studies Abdomen/Pelvis CT 06/12/23 20:23 IMPRESSION: 1. Mild biliary ductal dilation and mildly distended gallbladder with small amount of pericholecystic fluid suggested. Correlation with ultrasound is recommended for suspected cholecystitis. 2. Well delineated, roughly 10 mm homogenous fluid density pancreatic head. This appears separate from the duct. Pancreatic cyst is favored. Given apparent ductal dilation, correlation with MRCP and pancreas MRI is recommended. 3. Diverticulosis without diverticulitis. Electronically Signed: Jj Elizabeth DO at 22:41 EDT , <Dr. Jatinder Ceron DO - Last Filed: 06/12/23 22:55> [facility] Lab Data Labs: Laboratory Results - last 24 hr 06/12/23 06/12/23 20:00 21:20 WBC 6.0 RBC 3.90 L Hgb 11.7 L Hct 36.3 L MCV 93.1 MCH 30.0 MCHC 32.2 RDW Std Deviation 49.7 H RDW Coeff of Tello 14.6 Plt Count 284 MPV 10.3 Immature Gran % (Auto) 0.300 Neut % (Auto) 49.7 Lymph % (Auto) 40.1 Candler % (Auto) 7.7 Eos % (Auto) 1.7 Baso % (Auto) 0.5 Absolute Neuts (auto) 3.0 Absolute Lymphs (auto) 2.39 Nucleated RBC % 0 Sodium 142 Potassium 3.6 Chloride 110 H Carbon Dioxide 27.0 Anion Gap 5 BUN 18 Creatinine 1.60 H Estim Creat Clear Calc 32.32 Est GFR (MDRD) Af Amer 40 L Est GFR (MDRD) Non-Af 33 L BUN/Creatinine Ratio 11.2 Glucose 111 H Calcium 9.0 Total Bilirubin 0.90 AST 64 H ALT 24 Alkaline Phosphatase 114 Total Protein 6.7 Albumin 3.3 Globulin 3.4 Albumin/Globulin Ratio 1.0 Lipase 23 Urine Color Yellow Urine Clarity Clear Urine pH 5.0 Ur Specific Kane 1.025 Urine Protein 15 H Urine Glucose (UA) Normal Urine Ketones 50 H Urine Occult Blood Negative Urine Nitrite Negative Urine Bilirubin 1 H Urine Urobilinogen 4 H Ur Leukocyte Esterase 25 H Urine RBC 0 SEEN Urine WBC 0-5 SEEN Ur Squamous Epith Cells 0 SEEN Urine Bacteria 0 SEEN Hyaline Casts 0-5 SEEN Urine Mucus 0 SEEN Radiography Diagnostic Testing: Clinical Impression(s) from Imaging Studies Abdomen/Pelvis CT 06/12/23 20:23 IMPRESSION: 1. Mild biliary ductal dilation and mildly distended gallbladder with small amount of pericholecystic fluid suggested. Correlation with ultrasound is recommended for suspected cholecystitis. 2. Well delineated, roughly 10 mm homogenous fluid density pancreatic head. This appears separate from the duct. Pancreatic cyst is favored. Given apparent ductal dilation, correlation with MRCP and pancreas MRI is recommended. 3. Diverticulosis without diverticulitis. Electronically Signed: Jj Elizabeth DO at 22:41 EDT , Treatment and Re-Evaluation Narrative: I have personally performed a face to face assessment of the patient and have reviewed the HEAVENLY Note. I performed a substantive portion of the visit including all aspects of the following. My basurto findings include: History: Patient presents with back pain that began this morning. Patient states it was mainly in her mid thoracic area. Patient states that now her pain radiates around into her abdomen. Patient states her abdominal pain is over the epigastric area. Patient states nothing makes it better and nothing makes it worse. Patient denies any fevers or chills. Patient denies any nausea or vomiting. Exam: Vital signs are stable. Patient is afebrile. Patient is in no acute distress. Oral mucosa is pink and moist. Neck is supple. Trachea is midline. There is no JVD. Heart was regular rate and rhythm. Lungs are clear and equal bilaterally but somewhat diminished. There is good respiratory effort noted. Abdomen is soft. Bowel sounds are normal. There is tenderness over the epigastric area. There is no rebound or guarding noted. Cranial nerves II through XII are intact. There are no focal motor or sensory deficits noted. Medical Decision Making: Differential diagnosis includes pancreatitis, gastritis, peptic ulcer disease, pneumonia, and urinary tract infection. CBC will be obtained to assess for leukocytosis and anemia. Comprehensive metabolic profile will be obtained to assess for hepatic function, renal function, and electrolyte abnormality. Lipase will be obtained to assess for pancreatitis. Urinalysis will be obtained to assess for urinary tract infection. CT scan of the abdomen pelvis will be obtained to assess for bowel obstruction and perforation. Patient was given IV fluids. CBC was reviewed. There is a slight anemia with a hemoglobin of 11.7 and hematocrit of 36.3. The remainder is within normal limits. Comprehensive metabolic profile was reviewed. Creatinine was slightly elevated at 1.6. AST was slightly elevated at 64. ALT was normal. Alk phos was normal. Bilirubin was normal. Lipase was reviewed and was normal at 23. Urinalysis was reviewed. There is no evidence of urinary tract infection or hematuria. CT scan of the abdomen and pelvis was obtained. There is mild biliary ductal dilatation and mildly distended gallbladder with small amount of pericholecystic fluid. There is also a 10 mm fluid density in the pancreatic head which appears to be separate from the duct. This is likely a pancreatic cyst. This was interpreted by the radiologist and was also independently reviewed by myself. Patient is feeling better on reevaluation. Patient states her pain has resolved since she has been medicated. Case was discussed with Dr. Rojas, general surgeon on-call. Since ultrasound is not readily available at this time, he recommended giving the patient something to eat. If her pain would return, the patient would need to be admitted and get an ultrasound done tomorrow. If she remains pain-free after eating, she can be discharged home and follow-up as an outpatient this week. Care of the patient will be turned over to the oncoming physician. Discharge Plan Triage Chief Complaint: Back ED Midlevel Provider: Yesenia Malik ED Provider: Jatinder Ceron Dx/Rx/DC Orders Clinical Impression: Right upper quadrant abdominal pain Prescriptions: No Action atorvastatin 40 mg tablet 40 mg PO DAILY Hold Instructions: Resume on 02/14/22. Patient Comments: Take 1 tablet by mouth daily at bedtime. For cholesterol. amlodipine 5 mg tablet 5 mg PO DAILY Patient Comments: Take 1 tablet by mouth once daily. Primary Care Provider: Lane Vazquez Referrals: Lane Vazquez MD [Primary Care Provider] -
[2023-06-12 20:55] LABS: AST(SGOT) 64 U/L (15-37); Alanine Aminotransfer ALT/SGPT 24 U/L (13-56); Albumin, Serum 3.3 g/dL (3.2-5.0); Alkaline Phosphatase 114 U/L (45-117); Anion Gap 5 (5-15); BUN 18 mg/dL (7-18); BUN/Creat Ratio 11.2 RATIO (10-20); Chloride 110 mmol/L (98-107); EST Glomerular Filtration Rate 33 mL/min (>60); Est Glom Filt Rate - Afr Amer 40 mL/min (>60); Estimated Creatinine Clearance 32.32 ml/min; Globulin 3.4 g/dL (2.2-4.2); Glucose 111 mg/dL (74-106); Lipase 23 U/L (13-75); Potassium 3.6 mmol/L (3.5-5.1); Protein, Total 6.7 g/dL (6.4-8.2); Sodium Level 142 mmol/L (136-145)
[2023-06-12 21:35] LABS: Bacteria 0 SEEN /hpf (None Seen); Color, Urine Yellow (Yellow); Glucose, Dipstick Normal (Normal); Ketone-Dipstick 50 mg/dl (Negative); Leukocyte Esterase-Dipstick 25 /ul (Negative); Mucous, Urine 0 SEEN /hpf (<or=2+); Nitrite-Dipstick Negative (Negative); Occult Blood-Urine Negative /ul (Negative); Protein-Dipstick 15 mg/dl (Negative); Red Blood Cells-Urine 0 SEEN /hpf (0-5); Specific Gravity, Urine 1.025 (1.002-1.030); Squamous Epithelial Cells - UA 0 SEEN /hpf (5-10); Urine Clarity Clear (Clear); Urine Urobilinogen 4 mg/dl (Normal)
[2023-06-12 21:52] LABS: Urine Bilirubin Dipstick 1 mg/dL (Negative); White Blood Cells 0-5 SEEN /hpf (0-5)
[2023-06-12 21:53] LABS: Hyaline Cast 0-5 SEEN /lpf (0-5)
[2023-06-12 22:07] VITALS: BP 151/76; PULSE 103; RESP 17; O2SAT 96
[2023-06-13] VITALS: BP 160/75; PULSE 78; RESP 15; O2SAT 95
[2023-06-13 00:26] VITALS: BP 160/75; PULSE 87; RESP 18; TEMP 37.2; O2SAT 98
== END 2023-06-13 00:31 | disposition home or self-care (01) ==
PROVIDERS: Physician Assistant; Emergency Provider Emergency Medicine; PCP Internal Medicine; Visit Provider Emergency Medicine
DX: R10.11 Right upper quadrant pain (principal); I10 Essential (primary) hypertension; E78.5 Hyperlipidemia, unspecified; Z79.899 Other long term (current) drug therapy; R11.2 Nausea with vomiting, unspecified
CPT/HCPCS: 74177; 80053; 81001; 83690; 85025; 96361; 96374; 96375; 99284; Q9967; A4216; J2405

== ENCOUNTER 2023-08-22 00:50 | Emergency (ER) | payer MEDICARE, SELFPAY ==
[2023-08-22 00:53] VITALS: BP 164/84; PULSE 85; RESP 22; TEMP 36.5; O2SAT 100; BMI 25.9
--- NOTE | 2023-08-22 01:19 | CT_ITS ---
EXAM: CT ABDOMEN AND PELVIS WITH INTRAVENOUS CONTRAST CLINICAL INDICATION: abd pain TECHNIQUE: Helically acquired images were obtained of the abdomen and pelvis with intravenous contrast. This CT exam was performed using one or more of the following dose reduction techniques: automated exposure control, adjustment of the mA and/or kV according to patient size, and/or use of iterative reconstruction technique. CONTRAST: IV 100mL Isovue-370 RADIATION DOSE: CTDIvol = 15.00 mGy, DLP = 639.07 mGy-cm COMPARISON: 06/12/2023. FINDINGS: LOWER THORAX: Unremarkable. Lung bases are clear. No cardiomegaly. No significant pericardial effusion. ABDOMEN: LIVER: There is diffuse low-attenuation of the liver. GALLBLADDER AND BILE DUCTS: Unremarkable. No calcified gallstones. No gallbladder distention or wall edema. No intra- or extrahepatic biliary ductal dilation. PANCREAS: Unremarkable. No focal cystic or solid mass. SPLEEN: Unremarkable. Normal size without focal cystic or solid mass. ADRENALS: Unremarkable. No nodules. KIDNEYS AND URETERS: Unremarkable. Normal renal size and position. No hydronephrosis. STOMACH AND BOWEL: Numerous diverticula without diverticulitis. No stomach or bowel distention. PELVIS: APPENDIX: Normal appendix. BLADDER: Unremarkable. REPRODUCTIVE: Mildly enlarged uterus with multiple leiomyomas. ABDOMEN and PELVIS: INTRAPERITONEAL SPACE: Unremarkable. No ascites or other fluid collection. No free air. BONES/JOINTS: Unremarkable. No suspicious lytic or blastic abnormality. SOFT TISSUES: Unremarkable. No discrete abdominal or pelvic wall hernia. VASCULATURE: Unremarkable. Abdominal aorta is non-dilated. LYMPH NODES: Unremarkable. No enlarged lymph nodes. CT/Abdomen/Pelvis W IV Cont ONLY IMPRESSION: 1. No acute abdominal pelvic abnormality. 2. Mildly enlarged uterus with multiple leiomyomas. 3. Fatty liver. 4. Numerous diverticula without diverticulitis. Electronically Signed: Jj Mc MD at 2:17 EDT ,
--- NOTE | 2023-08-22 01:25 | EKG12_ITS ---
Test Reason : CP Blood Pressure : / mmHG Vent. Rate : 094 BPM Atrial Rate : 094 BPM P-R Int : 126 ms QRS Dur : 072 ms QT Int : 346 ms P-R-T Axes : 053 -19 032 degrees QTc Int : 432 ms Normal sinus rhythm Normal ECG Confirmed by LILLI OQUENDO, SCOTT ([id number]), editorial director SUHAS DEL ROSARIO ([id number]) on 08/23/2023 10:47:15 AM Referred By: Confirmed By:SCOTT REEDER MD
[2023-08-22 01:28] LABS: Absolute Lymphocyte Count 1.97 X10^3/uL (0.83-4.51); Absolute Neutrophil Count 2.8 X10^3/uL (2.0-7.7); Basophil# 0.02 X10^3/uL; Basophil% 0.4 % (0-1); Hematocrit 39.2 % (37-47); Hemoglobin 12.2 g/dL (12.0-15.0); Lymphocyte # 1.97 X10^3/ul (0.83-4.51); Lymphocyte % 37.8 % (19-41); Mean Corp Hgb Conc 31.1 g/dL (32-36); Mean Corpuscular Hgb 29.3 pg (27.0-32.0); Mean Corpuscular Volume 94.2 fL (81-99); Mean Platelet Vol. 10.1 fl (6.2-12.0); Monocyte# 0.39 X10^3/uL; Monocyte% 7.5 % (0-10); NRBC Flagged by Analyzer 0 % (0-5); Neutrophil # 2.82 X10^3/uL (2.7-7.7); Neutrophil % 54.1 % (47-70); Platelet Count 254 K/mm3 (150-450); RBC Distribution Width CV 13.7 % (11.6-14.6); RBC Distribution Width SD 46.8 fl (35.1-43.9); Red Blood Count 4.16 M/mm3 (4.2-5.4); White Blood Count 5.2 K/mm3 (4.4-11.0)
[2023-08-22] MEDS: 0.9% Normal Saline (500mL Bag) 500 ML 999 ML IV (01:31)
[2023-08-22] MEDS: Ketorolac 15 MG/ML Vial IV (01:31)
[2023-08-22] MEDS: Famotidine 200 MG/20 ML MDV 20 MG in 0.9% Normal Saline (Pres. free 8 ML 300 MG IV (01:31)
[2023-08-22] MEDS: Dicyclomine 10 MG Capsule 20 MG PO (01:32)
[2023-08-22 01:48] LABS: AST(SGOT) 75 U/L (15-37); Alanine Aminotransfer ALT/SGPT 24 U/L (13-56); Albumin, Serum 3.3 g/dL (3.2-5.0); Alkaline Phosphatase 82 U/L (45-117); Anion Gap 4 (5-15); BUN 16 mg/dL (7-18); BUN/Creat Ratio 9.8 RATIO (10-20); Bilirubin, Direct 0.61 mg/dL (0.00-0.30); Chloride 110 mmol/L (98-107); Creatinine, Serum 1.63 mg/dL (0.55-1.02); EST Glomerular Filtration Rate 32 mL/min (>60); Est Glom Filt Rate - Afr Amer 39 mL/min (>60); Estimated Creatinine Clearance 30.57 ml/min; Globulin 3.3 g/dL (2.2-4.2); Glucose 104 mg/dL (74-106); Lipase 26 U/L (13-75); Potassium 4.1 mmol/L (3.5-5.1); Protein, Total 6.6 g/dL (6.4-8.2); Sodium Level 143 mmol/L (136-145); Troponin-I HS 8 pg/mL (3.0-54.0)
[2023-08-22 02:50] VITALS: BP 148/71; PULSE 87; RESP 19; O2SAT 99
[2023-08-22 03:51] LABS: Troponin-I HS 8 pg/mL (3.0-54.0)
--- NOTE | 2023-08-22 03:53 | EDS_ITS ---
HPI History of Present Illness Chief Complaint: Chest Pain Informant: patient Narrative Narrative: Patient is a 77-year-old female with past medical history of hypertension. She states that she developed pain in the mid upper abdomen with some radiation into the chest a few hours prior to arrival. She states that there is no associated vomiting or shortness of breath or diaphoresis. She does admit to mild nausea associated with the symptoms. She states that the pain would not improve and as she felt it began to radiate into her chest that concerns could be cardiac and therefore comes in for evaluation [facility] Medical History Glaucoma HLD (hyperlipidemia) HTN (hypertension) Home Medications ?Medication ?Instructions ?Recorded ?Last Taken ?Type amlodipine 5 mg tablet 2.5 mg PO DAILY 10/02/20 Unknown History Allergy/AdvReac Type Severity Reaction Status Date / Time No Known Allergies Allergy Verified 08/22/23 00:55 Social History Smoking Status: Never smoker substance use type: does not use ROS ROS ED Constitutional Constitutional ED: Denies chills or fever(s) ENT ENT ED: Denies sore throat Cardiovascular Cardiovascular: Reports chest pain Respiratory/Chest Respiratory/Chest: Denies cough or dyspnea Gastrointestinal Gastrointestinal: Reports abdominal pain and nausea; Denies diarrhea or vomiting Genitourinary Genitourinary ED: Denies dysuria Musculoskeletal Musculoskeletal: Denies back pain or myalgias Integumentary Denies rash Neurologic Neurologic: Denies headache(s) Hematologic/Lymphatic Hematologic/Lymphatic: Denies easy bleeding or easy bruising EXAM Physical Exam Const Vital Signs: 08/22/23 00:53 08/22/23 00:56 08/22/23 02:50 Temperature 97.7 F L Temperature Source Oral Pulse Rate 85 87 Respiratory Rate 22 H 19 H Respiratory Effort Normal Non-Labored Blood Pressure 164/84 H 148/71 H Blood Pressure Mean 110 96 Pulse Ox 100 99 Oxygen Delivery Method Room Air Room Air 08/22/23 04:07 Temperature 97.9 F Temperature Source Pulse Rate 82 Respiratory Rate 16 Respiratory Effort Blood Pressure 141/64 H Blood Pressure Mean 89 Pulse Ox 100 Oxygen Delivery Method Positive well nourished and well developed General Appearance ED: well developed; Negative for pallor HEENT HEENT Narrative: Normocephalic atraumatic Eyes PERRL and EOMs intact bilaterally General Eye ED: Negative for scleral icterus Neck supple and no JVD Neck Narrative: No nuchal rigidity or meningeal signs noted Chest Wall palpation of chest normal Chest Narrative: No bony deformity or crepitance Resp normal respiratory effort and clear to auscultation bilaterally Cardio regular rate and regular rhythm Rate: other Other Details: Radial and carotid pulses are equal and symmetric GI non-distended and no masses GI Narrative: Abdomen is soft and nondistended with normal active bowel sounds. Patient has pain on palpation in the midepigastric region without voluntary guarding or rigidity. No pulsatile mass or fluid wave Auscultation: normoactive bowel sounds Palpation: soft Back/Spine no CVA tenderness Extremity normal to inspection Extremity Narrative: No asymmetric edema no pitting edema negative Homans' sign bilaterally Neuro oriented x3, CN's II-XII intact bilaterally and no sensory deficits noted Sensorium / Orientation: alert Motor Exam: strength 5/5 throughout Psych mental status grossly normal Skin no rashes or lesions noted and no wounds General Skin Exam: Negative for jaundice or pallor MDM MDM MDM Narrative Medical decision making narrative: Patient presented to the ER hypertensive but otherwise with stable vitals. She complained of chest pain but on further evaluation it was more upper abdominal pain with mild radiation into the chest. Differential diagnosis is for acute coronary syndrome versus biliary colic versus acute cholecystitis versus pancreatitis versus potential lung pathology such as pneumonia or pneumothorax or pleural effusion. Basic blood work as well as a CT scan were obtained. Labs revealed no clinically significant findings and CT scan showed no obvious signs of intestinal infection perforation or obstruction. After treatment she reported resolution of her pain and vitals improved. Therefore at this time with negative workup and improvement of symptoms I do not feel there is need for further evaluation in the ER and patient is otherwise safe for discharge. History & Record Review Discussion w/independent historian: Patient Lab Data Attestation: I reviewed the patient's lab results. Labs: Laboratory Results - last 24 hr 08/22/23 08/22/23 01:10 03:11 WBC 5.2 RBC 4.16 L Hgb 12.2 Hct 39.2 MCV 94.2 MCH 29.3 MCHC 31.1 L RDW Std Deviation 46.8 H RDW Coeff of Tello 13.7 Plt Count 254 MPV 10.1 Immature Gran % (Auto) 0.200 Neut % (Auto) 54.1 Lymph % (Auto) 37.8 Villalba % (Auto) 7.5 Eos % (Auto) 0.0 Baso % (Auto) 0.4 Absolute Neuts (auto) 2.8 Absolute Lymphs (auto) 1.97 Nucleated RBC % 0 Sodium 143 Potassium 4.1 Chloride 110 H Carbon Dioxide 29.0 Anion Gap 4 L BUN 16 Creatinine 1.63 H Estim Creat Clear Calc 30.57 Est GFR (MDRD) Af Amer 39 L Est GFR (MDRD) Non-Af 32 L BUN/Creatinine Ratio 9.8 L Glucose 104 Calcium 9.0 Total Bilirubin 1.20 H Direct Bilirubin 0.61 H AST 75 H ALT 24 Alkaline Phosphatase 82 Troponin I High Sens 8 8 Total Protein 6.6 Albumin 3.3 Globulin 3.3 Lipase 26 Radiography Diagnostic Testing: Clinical Impression(s) from Imaging Studies Abdomen/Pelvis CT 08/22/23 01:19 IMPRESSION: 1. No acute abdominal pelvic abnormality. 2. Mildly enlarged uterus with multiple leiomyomas. 3. Fatty liver. 4. Numerous diverticula without diverticulitis. Electronically Signed: Jj Mc MD at 2:17 EDT , Discharge Plan Triage Chief Complaint: Chest Pain ED Provider: Juaquin Fuetnes Dx/Rx/DC Orders Clinical Impression: Nonspecific abdominal pain, Nonspecific chest pain, Hypertension Instructions: Abdominal Pain, ED Chest Pain, Uncertain Cause Prescriptions: No Action amlodipine 5 mg tablet 2.5 mg PO DAILY Patient Comments: Take 1 tablet by mouth once daily. Primary Care Provider: Lane Vazquez Referrals: Lane Vazquez MD [Primary Care Provider] - Activity Restrictions/Additional Instructions: Please follow-up with your family doctor for repeat evaluation and return to the ER should you have any further concerns Print Language: [place] Disposition Disposition: Home, Self Care Discharge Date/Time: 08/22/23 04:08
[2023-08-22 04:07] VITALS: BP 141/64; PULSE 82; RESP 16; TEMP 36.6; O2SAT 100
== END 2023-08-22 04:08 | disposition home or self-care (01) ==
PROVIDERS: Emergency Provider Emergency Medicine; PCP Internal Medicine; Visit Provider Emergency Medicine
DX: R07.9 Chest pain, unspecified (principal); R10.9 Unspecified abdominal pain; I10 Essential (primary) hypertension; E78.5 Hyperlipidemia, unspecified; Z79.899 Other long term (current) drug therapy
CPT/HCPCS: 74177; 80048; 80076; 83690; 84484; 85025; 93005; 96361; 96374; 96375; 99283; J7030; Q9967; A4216; J3490

== ENCOUNTER 2023-08-26 07:47 | Inpatient (IN) | payer MEDICARE, SELFPAY ==
[2023-08-26] VITALS (7 sets, daily range): BP systolic 136–159; BP diastolic 39–78; PULSE 69–94; RESP 14–20; TEMP 35.8–37.2; O2SAT 9–99; BMI 26.4; BMI 26.3
--- NOTE | 2023-08-26 08:11 | EKG12_ITS ---
Test Reason : CHEST PAIN Blood Pressure : / mmHG Vent. Rate : 078 BPM Atrial Rate : 078 BPM P-R Int : 132 ms QRS Dur : 078 ms QT Int : 390 ms P-R-T Axes : 039 -20 028 degrees QTc Int : 444 ms Sinus rhythm with occasional Premature ventricular complexes Otherwise normal ECG Confirmed by LILLI OQUENDO, SCOTT ([id number]), non linear editor SUHAS DEL ROSARIO ([id number]) on 08/30/2023 11:41:40 AM Referred By: Confirmed By:SCOTT REEDER MD
--- NOTE | 2023-08-26 08:11 | EDS_ITS ---
HPI History of Present Illness Chief Complaint: Chest Pain Informant: patient Narrative Narrative: 77-year-old female states that she is experiencing chest pain. Patient points to her epigastrium and the right upper quadrant as a source of her pain. She states that she was seen in the emergency department Wednesday but does not know what she was told. She states that she was scheduled to see a surgeon but then there were some insurance issues so she needed to change insurances or see a different doctor. She states that she saw some doctor yesterday and had an MRI done. It appears that she saw Dr. Barnett from [facility] general surgery. She states she has a gallbladder infection but does not know the results of the MRI. She states that yesterday she felt fine. She states that when she woke this morning at 0500 hrs. she had the same pressure in her epigastrium. She then tells me that sharp and stabbing and moving towards the right and into the back but denies any radiation to the back. Her story is very confusing to try to piece together. She states nothing makes the pain better or worse. She tells me on Wednesday she was given prescription for some pills but does not know what it was. On Wednesday the patient underwent 2 sets of cardiac enzymes that were normal with a normal EKG. She was CT the abdomen pelvis did not show anything acute. Her laboratory findings showed an minimally elevated bilirubin and direct bilirubin and elevated AST level. White count was normal. She was noted to be hypertensive and was started on amlodipine. I was able to obtain the MRI with the patient underwent yesterday. This demonstrated pancreatic cystic lesions measuring up to 1.6 cm in the head without worrisome features. 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 Was noted that the patient did have some cholelithiasis. [facility] Medical History HLD (hyperlipidemia) HTN (hypertension) Glaucoma Home Medications ?Medication ?Instructions ?Recorded ?Last Taken ?Type amlodipine 5 mg tablet 5 mg PO SUTUWETHFRSA BLOOD PRESSURE 10/02/20 08/26/23 History amlodipine 2.5 mg tablet 2.5 mg PO MO BLOOD PRESSURE 08/26/23 08/23/23 History Allergy/AdvReac Type Severity Reaction Status Date / Time No Known Allergies Allergy Verified 08/22/23 00:55 Social History Smoking Status: Never smoker substance use type: does not use ROS ROS ED Constitutional Constitutional ED: Denies chills, fever(s) or weight loss Eyes Eyes: Denies change in vision or diplopia ENT ENT ED: Denies ear pain, rhinorrhea or sore throat Cardiovascular Cardiovascular: Reports chest pain; Denies orthopnea, palpitations or racing heartbeat Respiratory/Chest Respiratory/Chest: Denies cough, dyspnea or orthopnea Gastrointestinal Gastrointestinal: Reports abdominal pain; Denies diarrhea, nausea or vomiting Genitourinary Genitourinary ED: Denies dysuria, hematuria or urinary frequency Musculoskeletal Musculoskeletal: Denies arthralgias or myalgias Integumentary Denies abscess or rash Neurologic Neurologic: Denies headache(s) or weakness Psychiatric Psychiatric: Denies anxiety, depression, suicidal ideation or suicidal thoughts Endocrine Endocrinology: Denies polydipsia, polyphagia or polyuria Allergic/Immunologic Allergic/Immunologic ED: Denies mouth swelling, tongue swelling or urticaria EXAM Physical Exam Const Vital Signs: 08/26/23 07:48 08/26/23 08:10 08/26/23 10:33 Temperature 97.3 F L 96.4 F L Temperature Source Temporal Oral Pulse Rate 91 72 Respiratory Rate 14 16 Respiratory Effort Normal Non-Labored Blood Pressure 141/39 H 159/71 H Blood Pressure Mean 73 100 Pulse Ox 9 98 Oxygen Delivery Method Room Air Room Air 08/26/23 12:00 Temperature Temperature Source Pulse Rate 69 Respiratory Rate 16 Respiratory Effort Blood Pressure 136/69 H Blood Pressure Mean 91 Pulse Ox 97 Oxygen Delivery Method Room Air Positive well nourished and well developed General Appearance ED: well developed HEENT Reports normocephalic, head/scalp atraumatic and moist mucous membranes Eyes PERRL and EOMs intact bilaterally Neck no lymphadenopathy, supple and no JVD Resp normal respiratory effort and clear to auscultation bilaterally Cardio regular rate, regular rhythm and no murmurs GI normal to inspection, nondistended, normoactive bowel sounds and non-tender Palpation: soft Back/Spine no CVA tenderness and normal ROM Extremity normal to inspection General Extremety ED: Negative for edema General Extremity: Negative for edema Neuro oriented x3 and CN's II-XII intact bilaterally Sensorium / Orientation: alert Motor Exam: strength 5/5 throughout Psych mental status grossly normal Mood & Affect: Negative for depressed or tearful Skin no rashes or lesions noted and no wounds MDM MDM MDM Narrative Medical decision making narrative: Differential diagnosis includes but not limited to acute pancreatitis gastritis/peptic ulcer disease, biliary colic, hepatitis, liver dysfunction, perforated viscus, bowel obstruction, ACS, aortic dissection, pneumothorax, pneumonia, pleural effusion, malignancy Patient received Dilaudid Zofran and GI cocktail in addition to IV fluids. White count returns at 5.6 with hemoglobin 12.1 platelet count of 279. Creatinine 1.37 with a BUN of 19. There are some changes to her liver function today showing an ALT of 126 and AST of 185 alk phos of 224 total bilirubin 0.7 and direct bilirubin 0.40. Lipase is 36. My independent interpretation of the chest x-ray is no acute process. Her EKG is nonischemic. Troponin is normal. gallbladder ultrasound was obtained. This demonstrates cholelithiasis without pericholecystic fluid. Common bile duct is 6 mm. There appears to be a common bile duct stone. I have been trying to reach the patient's surgeon that she saw yesterday. We have called the office and left messages on the surgeons phone. Patient is comfortable seeing gastroenterology and general surgery here. I spoke with Dr. Friend Dr. Gale and her hospitalist Dr. Harden. Plan is admission. She received a dose of Zosyn. History & Record Review Discussion w/independent historian: Patient Additional record(s) reviewed:: Prior ED visit and Prior labs Lab Data Attestation: I reviewed the patient's lab results. Labs: Laboratory Results - last 24 hr 08/26/23 08:35 WBC 5.6 RBC 4.12 L Hgb 12.1 Hct 38.8 MCV 94.2 MCH 29.4 MCHC 31.2 L RDW Std Deviation 48.6 H RDW Coeff of Tello 14.2 Plt Count 279 MPV 10.4 Immature Gran % (Auto) 0.400 Neut % (Auto) 56.7 Lymph % (Auto) 36.0 Story % (Auto) 6.4 Eos % (Auto) 0.0 Baso % (Auto) 0.5 Absolute Neuts (auto) 3.2 Absolute Lymphs (auto) 2.01 Nucleated RBC % 0 Sodium 144 Potassium 3.4 L Chloride 111 H Carbon Dioxide 28.0 Anion Gap 5 BUN 19 H Creatinine 1.37 H Estim Creat Clear Calc 36.66 Est GFR (MDRD) Af Amer 48 L Est GFR (MDRD) Non-Af 40 L BUN/Creatinine Ratio 13.9 Glucose 119 H Calcium 9.0 Total Bilirubin 0.70 Direct Bilirubin 0.40 H AST 185 H ALT 126 H Alkaline Phosphatase 224 H Troponin I High Sens 9 Total Protein 6.7 Albumin 3.4 Globulin 3.3 Lipase 36 Radiography Diagnostic Testing: Clinical Impression(s) from Imaging Studies Chest X-Ray 08/26/23 09:10 IMPRESSION: Stable elevation of the right hemidiaphragm. No acute abnormality is seen. Electronically Signed: Gaurav Foster MD at 9:46 EDT , Gallbladder Ultrasound 08/26/23 13:21 IMPRESSION: Multiple gallstones. Possible calculus in the distal portion of the common bile duct. Electronically Signed: Gaurav Foster MD at 15:00 EDT , EKG Initial EKG: Attestation: I personally reviewed and interpreted this EKG as follows: Comments: Sinus rhythm ventricular rate of 78 bpm. PAC noted. Management Discussion w/another healthcare provider: Hospitalist (Dr. Harden) and Edi Manager (GI Dr Friend Surgery Dr Perry) Discharge Plan Dx/Rx/DC Orders Clinical Impression: Choledocholithiasis, Elevated liver enzymes, Abdominal pain, acute Disposition Disposition: Acute Care Hospital [facility]
[2023-08-26] MEDS: HYDROmorphone 1 MG/ML Syringe 0.5 MG IV (08:42)
[2023-08-26] MEDS: Lidocaine 2% Viscous15 ML UDC 15 ML PO (08:43)
[2023-08-26] MEDS: Ondansetron 4 MG/2 ML Vial IV (08:43)
[2023-08-26] MEDS: Mag Hydrox/Al Hydrox/Simeth 30 ML UDC PO (08:43)
[2023-08-26] MEDS: 0.9% Normal Saline (1000mL) 1,000 ML 125 ML IV ×2 (08:44→17:23)
[2023-08-26 08:52] LABS: Absolute Lymphocyte Count 2.01 X10^3/uL (0.83-4.51); Absolute Neutrophil Count 3.2 X10^3/uL (2.0-7.7); Basophil# 0.03 X10^3/uL; Basophil% 0.5 % (0-1); Hematocrit 38.8 % (37-47); Hemoglobin 12.1 g/dL (12.0-15.0); Lymphocyte # 2.01 X10^3/ul (0.83-4.51); Mean Corp Hgb Conc 31.2 g/dL (32-36); Mean Corpuscular Hgb 29.4 pg (27.0-32.0); Mean Corpuscular Volume 94.2 fL (81-99); Mean Platelet Vol. 10.4 fl (6.2-12.0); Monocyte# 0.36 X10^3/uL; Monocyte% 6.4 % (0-10); NRBC Flagged by Analyzer 0 % (0-5); Neutrophil # 3.17 X10^3/uL (2.7-7.7); Neutrophil % 56.7 % (47-70); Platelet Count 279 K/mm3 (150-450); RBC Distribution Width CV 14.2 % (11.6-14.6); RBC Distribution Width SD 48.6 fl (35.1-43.9); Red Blood Count 4.12 M/mm3 (4.2-5.4); White Blood Count 5.6 K/mm3 (4.4-11.0)
[2023-08-26 09:08] LABS: AST(SGOT) 185 U/L (15-37); Alanine Aminotransfer ALT/SGPT 126 U/L (13-56); Albumin, Serum 3.4 g/dL (3.2-5.0); Alkaline Phosphatase 224 U/L (45-117); Anion Gap 5 (5-15); BUN 19 mg/dL (7-18); BUN/Creat Ratio 13.9 RATIO (10-20); Chloride 111 mmol/L (98-107); Creatinine, Serum 1.37 mg/dL (0.55-1.02); EST Glomerular Filtration Rate 40 mL/min (>60); Est Glom Filt Rate - Afr Amer 48 mL/min (>60); Estimated Creatinine Clearance 36.66 ml/min; Globulin 3.3 g/dL (2.2-4.2); Glucose 119 mg/dL (74-106); Lipase 36 U/L (13-75); Potassium 3.4 mmol/L (3.5-5.1); Protein, Total 6.7 g/dL (6.4-8.2); Sodium Level 144 mmol/L (136-145); Troponin-I HS 9 pg/mL (3.0-54.0)
--- NOTE | 2023-08-26 09:10 | RAD_ITS ---
STUDY: X-RAY CHEST REASON FOR EXAM: Female, 77 years old. Chest pain TECHNIQUE: Single AP portable view of the chest. COMPARISON: Comparison is made with prior study dated November 11, 2022. FINDINGS: EKG electrodes are seen. There is elevation of the right hemidiaphragm. The lungs are clear. There is no demonstrated pleural abnormality. Normal size heart. Normal mediastinum and greg. Normal visualized pulmonary arteries. Normal visualized aortic arch and descending thoracic aorta. There are degenerative changes of the visualized thoracic spine. Normal visualized ribs, clavicles, and shoulders. There is no demonstrated abnormality of the visualized soft tissue structures of the upper abdomen. RAD/Chest 1 View (Portable) IMPRESSION: Stable elevation of the right hemidiaphragm. No acute abnormality is seen. Electronically Signed: Gaurav Foster MD at 9:46 EDT ,
--- NOTE | 2023-08-26 13:21 | US_ITS ---
STUDY: ABDOMINAL ULTRASOUND - RIGHT UPPER QUADRANT REASON FOR VISIT: Female, 77 years old right upper quadrant pain. TECHNIQUE: Ultrasound evaluation of the right upper quadrant was performed with real-time and static boles-scale imaging. TECHNICAL QUALITY: Adequate. COMPARISON: None. FINDINGS: Liver: The liver measures 13.9 cm. There is normal echogenicity of the liver. The bile ducts are within normal limits. There is hepatic color flow. The direction of portal flow is hepatopetal. There is no demonstrated mass lesion. Gallbladder: Normal distended gallbladder. The gallbladder wall measures 1 mm. There is a negative sonographic Guidry''s sign. There is pericholecystic fluid. There are multiple echogenic structures within the gallbladder, consistent with multiple gallstones. A stone is seen in the neck of the gallbladder lumen. Common Bile Duct (C.B.D.): The common bile duct measures 6 mm. Findings suggestive of a calculus in the distal portion of the common bile duct. Pancreas: Normal size of the head, body and tail of the pancreas. There is normal echogenicity of the pancreas. There is no demonstrated pancreatic mass or cyst. Right Kidney: Normal size of the right kidney. The right kidney measures 9.3 cm x 6.1 cm x 4.7 cm. Normal renal cortex. The right cortex measures 1.3 cm. There is no demonstrated renal mass or cyst. There is no right hydronephrosis. US/Gallbladder IMPRESSION: Multiple gallstones. Possible calculus in the distal portion of the common bile duct. Electronically Signed: Gaurav Foster MD at 15:00 EDT ,
--- NOTE | 2023-08-26 15:26 | PCM.HP.STD ---
HPI - General General Date of Admission: 08/26/23 Date of Service: 08/26/23 Chief Complaint: Epigastric pain HPI Narrative STEVE HASSAN, is a 77 F with past medical history of hypertension who presents to the ED with concerns regarding severe acute epigastric pain since 6 AM this morning. The pain is 10/10, compression type pain, nonradiating. She had a similar episode of pain few days back and visited the ED at the time. Her pain at the time had improved with analgesics, CT abdomen did not show any concerning features of intestinal infarction/perforation/obstruction, she was discharged to follow-up with her PCP. Today in the ED, She presented with blood pressure 159/76, respirate rate of 20, WBC 5.6, hemoglobin 12.1, platelet 279, BUN of 19, creatinine 1.37. Also her AST was 185, ALT 126, alk phos 224, total bilirubin 0.7, direct bilirubin 0.4, high-sensitivity troponin was normal, albumin 3.4. Ultrasound showed concerns for choledocholithiasis with bile duct of 6 mm. [facility] Medical History HLD (hyperlipidemia) HTN (hypertension) Glaucoma Home Medications ?Medication ?Instructions ?Recorded ?Last Taken ?Type amlodipine 5 mg tablet 5 mg PO SUTUWETHFRSA BLOOD PRESSURE 10/02/20 08/26/23 History amlodipine 2.5 mg tablet 2.5 mg PO MO BLOOD PRESSURE 08/26/23 08/23/23 History Allergy/AdvReac Type Severity Reaction Status Date / Time No Known Allergies Allergy Verified 08/22/23 00:55 Social History Smoking Status: Never smoker substance use type: does not use ROS Review of Systems ROS Unobtainable: Denies due to encephalopathy, due to endotracheal tube, due to mental condition, due to mental status or other Constitutional Constitutional: Denies anorexia, change in weight, chills, fatigue, fever(s), malaise, night sweats, weakness or other Eyes Eyes: Denies blurry vision, change in eye color, change in vision, discharge from eye(s), double vision, erythema, eye pain, loss of vision or other ENT HEENT: Denies abnormal hearing, dysphagia, ear pain, epistaxis, headache(s), hearing loss, nasal congestion, nasal discharge, post nasal drip, sinus pressure, sore throat or other Cardiovascular Cardiovascular: Denies chest pain, claudication, dyspnea on exertion, edema, lightheadedness, orthopnea, palpitations, paroxysmal nocturnal dyspnea, rapid heart rate, syncope or other Respiratory/Chest Respiratory/Chest: Denies cough, dyspnea, excessive phlegm production, hemoptysis, productive cough, shortness of breath at rest, shortness of breath with exertion, wheezing or other Gastrointestinal Gastrointestinal: Reports abdominal pain and diarrhea; Denies coffee ground emesis, constipation, dyspepsia, hematemesis, hematochezia, loose stools, melena, nausea, vomiting or other Genitourinary Genitourinary: Denies burning urination, difficulty urinating, dysuria, hematuria, nocturia, urinary frequency, urinary hesitancy, urinary incontinence, urinary urgency or other Musculoskeletal Musculoskeletal: Denies arthralgias, back pain, joint pain, joint stiffness, joint swelling, myalgias, neck pain or other Neurologic Neurologic: Denies abnormal gait, abnormal speech, confusion, disequilibrium, dizziness, focal weakness, headache(s), numbness, paresthesias, seizure-like activity, seizures, syncope, tingling, tremor(s) or other Psychiatric Psychiatric: Denies anxiety, depression, homicidal ideation, suicidal ideation or other Vital Signs Vital Signs Vital Signs: 08/26/23 07:48 08/26/23 08:10 08/26/23 10:33 Temperature 97.3 F L 96.4 F L Temperature Source Temporal Oral Pulse Rate 91 72 Respiratory Rate 14 16 Respiratory Effort Normal Non-Labored Blood Pressure 141/39 H 159/71 H Blood Pressure Mean 73 100 Pulse Ox 9 98 Oxygen Delivery Method Room Air Room Air 08/26/23 12:00 Temperature Temperature Source Pulse Rate 69 Respiratory Rate 16 Respiratory Effort Blood Pressure 136/69 H Blood Pressure Mean 91 Pulse Ox 97 Oxygen Delivery Method Room Air Weight Weight: 168 lb 6.931 oz Body Mass Index (BMI) 26.4 Physical Exam Const alert, oriented x3 and no apparent distress HEENT normocephalic and head/scalp atraumatic Neck no lymphadenopathy and supple Resp normal respiratory effort and no retractions Cardio regular rate and regular rhythm GI normal to inspection, nondistended, normoactive bowel sounds and soft to palpation Neuro oriented x3 and moves all extremities Results Medical Records Data Attestation: I reviewed the patient's medical records Lab / Micro Data Attestation: I reviewed the patient's lab results. 08/26/23 08:35 08/26/23 08:35 Labs: Laboratory Results - last 24 hr 08/26/23 08:35: WBC 5.6, RBC 4.12 L, Hgb 12.1, Hct 38.8, MCV 94.2, MCH 29.4, MCHC 31.2 L, RDW Std Deviation 48.6 H, RDW Coeff of Tello 14.2, Plt Count 279, MPV 10.4, Immature Gran % (Auto) 0.400, Neut % (Auto) 56.7, Lymph % (Auto) 36.0, Branch % (Auto) 6.4, Eos % (Auto) 0.0, Baso % (Auto) 0.5, Absolute Neuts (auto) 3.2, Absolute Lymphs (auto) 2.01, Nucleated RBC % 0, Sodium 144, Potassium 3.4 L, Chloride 111 H, Carbon Dioxide 28.0, Anion Gap 5, BUN 19 H, Creatinine 1.37 H, Estim Creat Clear Calc 36.66, Est GFR (MDRD) Af Amer 48 L, Est GFR (MDRD) Non-Af 40 L, BUN/Creatinine Ratio 13.9, Glucose 119 H, Calcium 9.0, Total Bilirubin 0.70, Direct Bilirubin 0.40 H, AST 185 H, ALT 126 H, Alkaline Phosphatase 224 H, Troponin I High Sens 9, Total Protein 6.7, Albumin 3.4, Globulin 3.3, Lipase 36 Imaging Radiology Impression Chest X-Ray 08/26/23 09:10 IMPRESSION: Stable elevation of the right hemidiaphragm. No acute abnormality is seen. Electronically Signed: Gaurav Foster MD at 9:46 EDT , Gallbladder Ultrasound 08/26/23 13:21 IMPRESSION: Multiple gallstones. Possible calculus in the distal portion of the common bile duct. Electronically Signed: Gaurav Foster MD at 15:00 EDT , Assessment & Plan Assessment/Plan (1) Choledocholithiasis: PLAN: Plan 77-year-old female with a history of hypertension presents to the ED with concerns regarding severe epigastric abdominal pain and imaging findings concerning for common bile duct stone. Her presentation [recurrent episodes of severe pain], lab findings of elevated liver enzymes, alk phos levels, imaging findings of CBD stone are concerning for choledocholithiasis and cholecystitis. #Choledocholithiasis, cholelithiasis: -GI has been consulted for ERCP -Soft diet today, n.p.o. after midnight -Circle pain medication, not in any pain at this time -General surgery evaluation after ERCP for cholecystectomy -Received 1 dose of Zosyn in the ED, no features concerning for infection, will hold off antibiotics for now #Hypertension: -Elevated blood pressures in the ED likely related to ongoing pain -Continue amlodipine as before -Monitor blood pressure #Elevated liver enzymes -Likely secondary to cholelithiasis and choledocholithiasis -Continue to monitor LFTs -PT/INR evaluation prior to ERCP #DVT prophylaxis: Moderate risk, encourage mobilization -Enoxaparin 40 mg subcu tomorrow Charges/Coding Visit Charges Inpatient E&M: 58066 Init Hosp L1
[2023-08-26] MEDS: Piperacil/Tazobactam 4.5 GM in 0.9% Normal Saline (100mL MB+) 100 ML IV (15:42)
--- NOTE | 2023-08-26 18:46 | CON.PCM.GI_ITS ---
HPI Consult Data Date of Consult: 08/26/23 HPI Narrative Reason for Consultation: Choledocholithiasis HPI Narrative: STEVE HASSAN, is a 77 F with past medical history of hypertension who presents to the ED with concerns regarding severe acute epigastric pain since 6 AM this morning. The pain is 10/10, compression type pain, nonradiating. She had a similar episode of pain few days back and visited the ED at the time. Her pain at the time had improved with analgesics, CT abdomen did not show any concerning features of intestinal infarction/perforation/obstruction, she was discharged to follow-up with her PCP. Today in the ED, She presented with blood pressure 159/76, respirate rate of 20, WBC 5.6, hemoglobin 12.1, platelet 279, BUN of 19, creatinine 1.37. Also her AST was 185, ALT 126, alk phos 224, total bilirubin 0.7, direct bilirubin 0.4, high-sensitivity troponin was normal, albumin 3.4. Ultrasound showed concerns for choledocholithiasis with bile duct of 6 mm. [facility] Medical History HLD (hyperlipidemia) HTN (hypertension) Glaucoma Home Medications ?Medication ?Instructions ?Recorded ?Last Taken ?Type amlodipine 5 mg tablet 5 mg PO SUTUWETHFRSA BLOOD PRESSURE 10/02/20 08/26/23 History amlodipine 2.5 mg tablet 2.5 mg PO MO BLOOD PRESSURE 08/26/23 08/23/23 History Allergy/AdvReac Type Severity Reaction Status Date / Time No Known Allergies Allergy Verified 08/22/23 00:55 Social History Smoking Status: Never smoker substance use type: does not use ROS Constitutional Constitutional: Reports anorexia ENT HEENT: Denies dysphagia Cardiovascular Cardiovascular: Denies chest pain Respiratory/Chest Respiratory/Chest: Denies productive cough Gastrointestinal Gastrointestinal: Reports abdominal pain, nausea and vomiting Genitourinary Genitourinary: Denies dysuria Musculoskeletal Musculoskeletal: Denies joint swelling Integumentary Integumentary: Denies jaundice Neurologic Neurologic: Denies focal weakness Psychiatric Psychiatric: Denies depression Endocrine Endocrinology: Denies palpitations Hematologic/Lymphatic Hematologic/Lymphatic: Denies easy bleeding Physical Exam Const oriented x3, no apparent distress and well nourished General Appearance: cooperative and well developed HEENT normocephalic, head/scalp atraumatic, moist oral mucous membranes and oropharynx normal Eyes PERRL and EOMs intact bilaterally Neck no lymphadenopathy and supple Lymph Lymphatic: no lymphadenopathy noted and no lymphedema noted Resp normal respiratory effort, normal air movement and clear to auscultation bilaterally Cardio regular rate, regular rhythm, S1 normal heart sound, S2 normal heart sound and no murmurs GI normal to inspection, nondistended, normoactive bowel sounds, soft to palpation, non-tender and non-distended Extremity normal capillary refill, no clubbing, cyanosis or edema and no calf tenderness General Extremity: no tenderness to palpation of joints or extremities Skin General Skin Exam: no breakdown Neuro CN's II-XII intact bilaterally, no focal motor deficits, no sensory deficits noted and deep tendon reflexes 2+ bilaterally Motor Exam: strength 5/5 throughout and general weakness Psych thought process normal, cooperative and affect normal Appearance: appropriate Lab / Micro Data 08/27/23 03:48 08/27/23 03:48 Labs: Laboratory Results - last 24 hr 08/26/23 18:25: PT 13.5, INR 1.0 08/27/23 03:48: WBC 3.8 L, RBC 3.50 L, Hgb 10.5 L, Hct 33.1 L, MCV 94.6, MCH 30.0, MCHC 31.7 L, RDW Std Deviation 49.2 H, RDW Coeff of Tello 14.3, Plt Count 215, MPV 10.5, Immature Gran % (Auto) 0.300, Neut % (Auto) 56.5, Lymph % (Auto) 34.8, Scurry % (Auto) 7.9, Eos % (Auto) 0.0, Baso % (Auto) 0.5, Absolute Neuts (auto) 2.2, Absolute Lymphs (auto) 1.33, Nucleated RBC % 0, PT 14.5, INR 1.1, S odium 146 H, Potassium 3.9, Chloride 116 H, Carbon Dioxide 25.0, Anion Gap 5, BUN 13, Creatinine 1.27 H, Estim Creat Clear Calc 39.52, Est GFR (MDRD) Af Amer 52 L, Est GFR (MDRD) Non-Af 43 L, BUN/Creatinine Ratio 10.2, Glucose 103, C alcium 7.7 L, Phosphorus 2.3 L, Magnesium 2.6, Total Bilirubin 1.00, Direct Bilirubin 0.47 H, AST 631 H, ALT 399 H, Alkaline Phosphatase 220 H, Total Protein 5.0 L, Albumin 2.6 L, Globulin 2.4, Albumin/Globulin Ratio 1.1 Assessment & Plan Assessment/Plan (1) Choledocholithiasis: PLAN: Plan 77-year-old female with a history of hypertension presents to the ED with concerns regarding severe epigastric abdominal pain and imaging findings concerning for common bile duct stone. Her presentation [recurrent episodes of severe pain], lab findings of elevated liver enzymes, alk phos levels, imaging findings of CBD stone are concerning for choledocholithiasis and cholecystitis. Choledocholithiasis, cholelithiasis: -ERCP -Soft diet today, n.p.o. after midnight -[place] pain medication, not in any pain at this time -General surgery evaluation after ERCP for cholecystectomy -Received 1 dose of Zosyn in the ED, no features concerning for infection, will hold off antibiotics for now Charges/Coding Visit Charges Inpatient E&M: 38584 Init Hosp L3
[2023-08-26 19:27] LABS: Prothrombin Time (Protime)PT. 13.5 SECONDS (11.7-14.9)
[2023-08-26] MEDS: Piperacil/Tazobactam 3.375 GM in 0.9% Normal Saline (50mL MB+) 50 ML IV (21:46)
[2023-08-26] MEDS: Acetaminophen 325 MG Tablet 650 MG PO (23:22)
[2023-08-27] VITALS (11 sets, daily range): BP systolic 137–175; BP diastolic 61–91; PULSE 68–104; RESP 16–18; TEMP 36.1–36.8; O2SAT 97–100; BMI 26.3
[2023-08-27] MEDS: 0.9% Normal Saline (1000mL) 1,000 ML 125 ML IV ×3 (00:35→21:09)
[2023-08-27 04:29] LABS: Absolute Lymphocyte Count 1.33 X10^3/uL (0.83-4.51); Absolute Neutrophil Count 2.2 X10^3/uL (2.0-7.7); Basophil# 0.02 X10^3/uL; Basophil% 0.5 % (0-1); Hematocrit 33.1 % (37-47); Hemoglobin 10.5 g/dL (12.0-15.0); Lymphocyte # 1.33 X10^3/ul (0.83-4.51); Lymphocyte % 34.8 % (19-41); Mean Corp Hgb Conc 31.7 g/dL (32-36); Mean Corpuscular Volume 94.6 fL (81-99); Mean Platelet Vol. 10.5 fl (6.2-12.0); Monocyte% 7.9 % (0-10); NRBC Flagged by Analyzer 0 % (0-5); Neutrophil # 2.16 X10^3/uL (2.7-7.7); Neutrophil % 56.5 % (47-70); Platelet Count 215 K/mm3 (150-450); RBC Distribution Width CV 14.3 % (11.6-14.6); RBC Distribution Width SD 49.2 fl (35.1-43.9); White Blood Count 3.8 K/mm3 (4.4-11.0)
[2023-08-27 04:38] LABS: International Normalized Ratio 1.1; Prothrombin Time (Protime)PT. 14.5 SECONDS (11.7-14.9)
[2023-08-27 04:48] LABS: ALB/GLOB Ratio 1.1 RATIO (0.9-2.4); AST(SGOT) 631 U/L (15-37); Alanine Aminotransfer ALT/SGPT 399 U/L (13-56); Albumin, Serum 2.6 g/dL (3.2-5.0); Alkaline Phosphatase 220 U/L (45-117); Anion Gap 5 (5-15); BUN 13 mg/dL (7-18); BUN/Creat Ratio 10.2 RATIO (10-20); Bilirubin, Direct 0.47 mg/dL (0.00-0.30); Calcium,Total 7.7 mg/dL (8.5-10.1); Chloride 116 mmol/L (98-107); Creatinine, Serum 1.27 mg/dL (0.55-1.02); EST Glomerular Filtration Rate 43 mL/min (>60); Est Glom Filt Rate - Afr Amer 52 mL/min (>60); Estimated Creatinine Clearance 39.52 ml/min; Globulin 2.4 g/dL (2.2-4.2); Glucose 103 mg/dL (74-106); Magnesium 2.6 mg/dL (1.6-2.6); Phosphorus 2.3 mg/dL (2.5-4.9); Potassium 3.9 mmol/L (3.5-5.1); Sodium Level 146 mmol/L (136-145)
[2023-08-27] MEDS: Piperacil/Tazobactam 3.375 GM in 0.9% Normal Saline (50mL MB+) 50 ML IV ×3 (05:16→21:09)
--- NOTE | 2023-08-27 08:07 | EX.PCM.CON.S ---
Assessment & Plan Assessment/Plan (1) Cholelithiasis: (2) Elevated liver enzymes: (3) Choledocholithiasis: PLAN: Plan Patient's liver functions are increased this morning. Patient still having mild epigastric discomfort on exam but denies if ask she is having any pain. Patient will likely undergo ERCP today discussed with patient plan for subsequent laparoscopic cholecystectomy to prevent any further choledocholithiasis. As I am not here tomorrow or next week this will be discussed with Dr. Carr. Reviewed the anatomy with the patient and her daughter, Bernadette via phone and discussed the procedure: laparoscopic cholecystectomy with possible cholangiograms, possible open. Review risks including but not limited to bleeding, infection, hernia, bile leak, retained gallstones requiring another procedure ERCP- Endoscopic Retrograde Cholangiopancreatography, injury to another organ (bile ducts, common bile duct, small bowel, etc.) and conversion to an open procedure. All questions were answered. Nicolasa Perry M.D. Pager: [phone] [facility] [address] [place] [address], [facility], [address] [place] [address] Office: [phone] HPI Consult Data Date of Consult: 08/27/23 HPI Narrative HPI Narrative: STEVE HASSAN, is a 77 F who presents to the ER due to epigastric pain. Patient states she was previously here on Wednesday due to this similar pain but did resolve with medication. Patient did have a recent MRI and saw Dr. Barnett 2 days ago however MRI was done at [facility] do not have the scan. 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 In the ER patient had normal white blood cell count no shift, elevated LFTs and ultrasound of the gallbladder showed normal wall at 1 mm, Cholelithiasis, no pericholecystic fluid, possible stone in the common bile duct. Patient denies any previous abdominal surgeries. [facility] Medical History HLD (hyperlipidemia) HTN (hypertension) Glaucoma Home Medications ?Medication ?Instructions ?Recorded ?Last Taken ?Type amlodipine 5 mg tablet 5 mg PO SUTUWETHFRSA BLOOD PRESSURE 10/02/20 08/26/23 History amlodipine 2.5 mg tablet 2.5 mg PO MO BLOOD PRESSURE 08/26/23 08/23/23 History Allergy/AdvReac Type Severity Reaction Status Date / Time No Known Allergies Allergy Verified 08/22/23 00:55 Social History Smoking Status: Never smoker substance use type: does not use ROS Constitutional Constitutional: Reports anorexia ENT HEENT: Denies dysphagia Cardiovascular Cardiovascular: Denies chest pain Respiratory/Chest Respiratory/Chest: Denies productive cough Gastrointestinal Gastrointestinal: Reports abdominal pain, nausea and vomiting Genitourinary Genitourinary: Denies dysuria Musculoskeletal Musculoskeletal: Denies joint swelling Integumentary Integumentary: Denies jaundice Neurologic Neurologic: Denies focal weakness Psychiatric Psychiatric: Denies depression Endocrine Endocrinology: Denies palpitations Hematologic/Lymphatic Hematologic/Lymphatic: Denies easy bleeding Physical Exam Const alert, oriented x3 and no apparent distress HEENT normocephalic and head/scalp atraumatic Resp normal respiratory effort Cardio regular rate GI soft to palpation; Negative for non-distended Palpation: tender epigastric; Negative for guarding Extremity no clubbing, cyanosis or edema Neuro CN's II-XII intact bilaterally Psych mental status grossly normal Lab / Micro Data 08/27/23 03:48 08/27/23 03:48 Labs: Laboratory Results - last 24 hr 08/26/23 08:35: WBC 5.6, RBC 4.12 L, Hgb 12.1, Hct 38.8, MCV 94.2, MCH 29.4, MCHC 31.2 L, RDW Std Deviation 48.6 H, RDW Coeff of Tello 14.2, Plt Count 279, MPV 10.4, Immature Gran % (Auto) 0.400, Neut % (Auto) 56.7, Lymph % (Auto) 36.0, [place] % (Auto) 6.4, Eos % (Auto) 0.0, Baso % (Auto) 0.5, Absolute Neuts (auto) 3.2, Absolute Lymphs (auto) 2.01, Nucleated RBC % 0, Sodium 144, Potassium 3.4 L, Chloride 111 H, Carbon Dioxide 28.0, Anion Gap 5, BUN 19 H, Creatinine 1.37 H, Estim Creat Clear Calc 36.66, Est GFR (MDRD) Af Amer 48 L, Est GFR (MDRD) Non-Af 40 L, BUN/Creatinine Ratio 13.9, Glucose 119 H, Calcium 9.0, Total Bilirubin 0.70, Direct Bilirubin 0.40 H, AST 185 H, ALT 126 H, Alkaline Phosphatase 224 H, Troponin I High Sens 9, Total Protein 6.7, Albumin 3.4, Globulin 3.3, Lipase 36 08/26/23 18:25: PT 13.5, INR 1.0 08/27/23 03:48: WBC 3.8 L, RBC 3.50 L, Hgb 10.5 L, Hct 33.1 L, MCV 94.6, MCH 30.0, MCHC 31.7 L, RDW Std Deviation 49.2 H, RDW Coeff of Tello 14.3, Plt Count 215, MPV 10.5, Immature Gran % (Auto) 0.300, Neut % (Auto) 56.5, Lymph % (Auto) 34.8, [place] % (Auto) 7.9, Eos % (Auto) 0.0, Baso % (Auto) 0.5, Absolute Neuts (auto) 2.2, Absolute Lymphs (auto) 1.33, Nucleated RBC % 0, PT 14.5, INR 1.1, Sodium 146 H, Potassium 3.9, Chloride 116 H, Carbon Dioxide 25.0, Anion Gap 5, BUN 13, Creatinine 1.27 H, Estim Creat Clear Calc 39.52, Est GFR (MDRD) Af Amer 52 L, Est GFR (MDRD) Non-Af 43 L, BUN/Creatinine Ratio 10.2, Glucose 103, Calcium 7.7 L, Phosphorus 2.3 L, Magnesium 2.6, Total Bilirubin 1.00, Direct Bilirubin 0.47 H, AST 631 H, ALT 399 H, Alkaline Phosphatase 220 H, Total Protein 5.0 L, Albumin 2.6 L, Globulin 2.4, Albumin/Globulin Ratio 1.1 Imaging Radiology Impression Chest X-Ray 08/26/23 09:10 IMPRESSION: Stable elevation of the right hemidiaphragm. No acute abnormality is seen. Electronically Signed: Gaurav Foster MD at 9:46 EDT , Gallbladder Ultrasound 08/26/23 13:21 IMPRESSION: Multiple gallstones. Possible calculus in the distal portion of the common bile duct. Electronically Signed: Gaurav Foster MD at 15:00 EDT , Charges/Coding Visit Charges Inpatient E&M: 10833 Init Hosp L3
[2023-08-27] MEDS: amLODIPine 5 MG Tablet PO (08:20)
--- NOTE | 2023-08-27 09:12 | CASEMGMT ---
HAJA LEACH Assessment: Face to Face with pt for initial transition planning/care coordination assessment. RN HANY introduced self and role at [facility], pt voices understanding and consents to assessment. Pt lying in bed in no distress. Nurse came into pt room at end of assessment to prep pt to go for procedure. Pt is A&O x4 and answers all questions appropriately at this time. Care providers, pharmacy, and demographics verified/updated. Admitting Dx: Choledocholithiasis PCP: George Specialists: Denies Preferred Pharmacy: [facility] Insurance: [facility] Prescription Benefit: yes LNOK: Bernadette - dtr Living Arrangements: Pt lives alone in a 1 story home with 1 step to enter. Pt states I with ADLs and IADLs. Transportation: Pt drives self and denies concerns with transportation. DME: Denies HHC/SNF: Denies Hx of SNF. States used HHC after knee surgery, cannot recall what agency. Pt states no concerns with going home at time of dc. Pt states no further concerns/needs. CM to follow. Advised pt to ask CM if any further question/concerns/needs arise, voices understanding. Pt Goal: Home Plan: Home, will follow plan of care. Deisy SMYTH CM
--- NOTE | 2023-08-27 09:23 | PN_ITS ---
Subjective Subjective Patient seen and examined. She was admitted with a complaint of epigastric pain and was found to have choledocholithiasis per gallbladder USG. She is for ERCP today. She has remained hemodynamically stable. Objective Data Objective Data Vital Signs: Vital Signs Temp Pulse Resp BP Pulse Ox O2 Del Method 98.3 F 68 16 139/64 H 100 Room Air 08/27/23 08:15 08/27/23 08:15 08/27/23 08:15 08/27/23 08:15 08/27/23 08:15 08/27/23 08:15 Oxygen Delivery Method Room Air Weight: 168 lb 3.403 oz Body Mass Index (BMI) 26.3 Intake & Output: Intake and Output for Last 24 Hours 08/25/23 08/26/23 08/27/23 23:59 23:59 23:59 Intake Total 1340 / 1340 / Balance 1340 / 1340 75 / Lab / Micro Data 08/27/23 03:48 08/27/23 03:48 Labs: Laboratory Results - last 24 hr 08/26/23 18:25: PT 13.5, INR 1.0 08/27/23 03:48: WBC 3.8 L, RBC 3.50 L, Hgb 10.5 L, Hct 33.1 L, MCV 94.6, MCH 30.0, MCHC 31.7 L, RDW Std Deviation 49.2 H, RDW Coeff of Tello 14.3, Plt Count 215, MPV 10.5, Immature Gran % (Auto) 0.300, Neut % (Auto) 56.5, Lymph % (Auto) 34.8, [place] % (Auto) 7.9, Eos % (Auto) 0.0, Baso % (Auto) 0.5, Absolute Neuts (auto) 2.2, Absolute Lymphs (auto) 1.33, Nucleated RBC % 0, PT 14.5, INR 1.1, S odium 146 H, Potassium 3.9, Chloride 116 H, Carbon Dioxide 25.0, Anion Gap 5, BUN 13, Creatinine 1.27 H, Estim Creat Clear Calc 39.52, Est GFR (MDRD) Af Amer 52 L, Est GFR (MDRD) Non-Af 43 L, BUN/Creatinine Ratio 10.2, Glucose 103, C alcium 7.7 L, Phosphorus 2.3 L, Magnesium 2.6, Total Bilirubin 1.00, Direct Bilirubin 0.47 H, AST 631 H, ALT 399 H, Alkaline Phosphatase 220 H, Total Protein 5.0 L, Albumin 2.6 L, Globulin 2.4, Albumin/Globulin Ratio 1.1 Radiography Diagnostic Testing: Radiology Impression Chest X-Ray 08/26/23 09:10 IMPRESSION: Stable elevation of the right hemidiaphragm. No acute abnormality is seen. Electronically Signed: Gaurav Foster MD at 9:46 EDT , Gallbladder Ultrasound 08/26/23 13:21 IMPRESSION: Multiple gallstones. Possible calculus in the distal portion of the common bile duct. Electronically Signed: Gaurav Foster MD at 15:00 EDT , Physical Exam Const oriented x3, no apparent distress and well nourished General Appearance: cooperative and well developed HEENT normocephalic, head/scalp atraumatic, moist oral mucous membranes and oropharynx normal Eyes PERRL and EOMs intact bilaterally Neck no lymphadenopathy and supple Lymph Lymphatic: no lymphadenopathy noted and no lymphedema noted Resp normal respiratory effort, normal air movement and clear to auscultation bilaterally Cardio regular rate, regular rhythm, S1 normal heart sound, S2 normal heart sound and no murmurs GI normal to inspection, nondistended, normoactive bowel sounds, soft to palpation, non-tender and non-distended Extremity normal capillary refill, no clubbing, cyanosis or edema and no calf tenderness General Extremity: no tenderness to palpation of joints or extremities Skin General Skin Exam: no breakdown Neuro CN's II-XII intact bilaterally, no focal motor deficits, no sensory deficits noted and deep tendon reflexes 2+ bilaterally Motor Exam: strength 5/5 throughout and general weakness Psych thought process normal, cooperative and affect normal Appearance: appropriate Assessment & Plan Assessment/Plan (1) Cholelithiasis: (2) Abdominal pain, acute: PLAN: Plan #Acute choledocholithiasis with cholelithiasis * abdominal pain has resolved * GI on baord * for ERCP today * PO tylenol, PO oxycodone and IV morphine prn for pain * gallbladder USG showed evidence of common bile duct stone * liver enzymes were elevated * #Hypertension: on amlodipine. IV hydralazine prn. #Elevated liver enzymes: Total bilirubin is 1 today with AST of 631, ALT of 399 and ALP of 220. This is likely due to the choledocholithiasis. Will trend for improvement after ERCP. DVT prophylaxis: Lovenox Charges/Coding Visit Charges Inpatient E&M: 18427 Subs Hosp L2
--- NOTE | 2023-08-27 10:21 | NURSING ---
Pt sent to ERCP.
--- NOTE | 2023-08-27 10:49 | PCM.PRE.AN2 ---
ASA Classification* ASA Classification ASA Classification: 2 and E Assessment & Plan Anesthesia* Anesthesia Assessment Anesthesia Assessment: Discussed sedation and/or anesthesia options, risks, benefits, and alternatives with patient/parents/legal guardian/POA. Questions invited. The patient/parents/legal guardian/POA seems to understand and agrees to proceed with anesthesia plan. Reviewed the physical assessment, medical history, allergy history and patient home medications list prior to surgery/procedure/anesthetic and documented any changes. Performed airway and anesthesia risk assessments. Anesthesia Type Anesthesia Type: General Pre-Assessment Diagnosis/Proposed Procedure Planned Operative Procedure(s): ERCP Anesthesia History Anesthesia History - caddie supervisor: Anesthesia History - caddie supervisor Hx Hospitalization Any Problems With Anesthesia No 08/27/23 03:45 Cholinesterase deficiency No 08/27/23 03:45 You/Your Family Experience No 08/27/23 03:45 fever (hyperthermia) with Relationship Recent Exposure to Contagious No 08/27/23 03:45 Disease Does patient have nerve No 08/27/23 03:45 stimulator Patient instructed to have device shut off --Does patient have Pacemaker No 08/27/23 09:18 or ICD? When Was Last Pacemaker Check QUESTION #4 FULL TEXT: You/Your Family Experience fever (hyperthermia) with Anesthesia Last Oral Intake Last Oral intake: Last Oral Intake NPO since 00:00 08/27/23 09:18 Meds taken in AM with sips of Yes 08/27/23 09:18 water? Meds patient instructed to amlodipine 08/27/23 09:18 take am of surgery PONV PONV - caddie supervisor: PONV - caddie supervisor Female HX of Motion Sickness HX of N/V After Surgery Non-Smoker Duration of Surgery greater than 60 minutes Number of Risk Factors PONV Score Height & Weight Height & Weight: Anesthesia: Height & Weight Height 5 ft 7 in 08/27/23 09:18 Weight: 76.3 kg 08/27/23 09:18 Body Mass Index (BMI) 26.3 08/27/23 09:18 Respiratory Assessment Respiratory Assessment - caddie supervisor: Respiratory Tract Infection Hx - caddie supervisor Hx Respiratory Tract Infection No 08/27/23 03:45 STOP Sleep Apnea STOP Sleep Apnea - caddie supervisor: STOP Sleep Apnea - caddie supervisor Hx Hypertension Yes 08/26/23 17:06 Hx Sleep Apnea No 08/26/23 17:06 CPAP BIPAP Do you snore loudly (louder No 08/26/23 17:06 than talking or can be heard Do you often feel tired/ No 08/26/23 17:06 fatigued/ sleepy during daytime? Has anyone observed you stop No 08/26/23 17:06 breathing during sleep? STOP Results Negative 08/26/23 17:06 QUESTION #5 FULL TEXT : Do you snore loudly (louder than talking or can be heard through closed doors)? Tobacco Use History Tobacco Use History - caddie supervisor: Tobacco Use History - caddie supervisor Tobacco Use Smoking Status Never smoker 08/26/23 17:06 Hx Tobacco Use No 08/26/23 17:06 Years Smoking Packs Smoked per Day Smoking Cessation Date was within the last 15 years Hx Smoking Cessation Date Hx Smoking Cessation Counseling Hematologic Medial History Hematologic Hx - caddie supervisor: Hematologic Medical Hx - communications manager Hx of Blood Transfusion Yes 08/26/23 17:06 Hx of Transfusion in last 3 No 08/26/23 17:06 Months Date of Last Transfusion (if within last 3 months) Ever experience any problems No 08/26/23 17:06 with transfusion(s)? Specify any problems Hx of Preganancy in last 3 No 08/26/23 17:06 Months Nurse Filling Out Transfusion TAWANDA 08/26/23 17:06 & Questions: Date: 08/26/23 08/26/23 17:06 Time: 17:07 08/26/23 17:06 Patient unable to answer at this time (ie. confused, unrespo /Reproduction History /Reproductive History - caddie supervisor: /Reproductive Hx- caddie supervisor Hx Now No 08/27/23 03:45 Gestational Age (in weeks): EDC: Hx Hx Para Hx Section SAB No 08/27/23 03:45 Active Medications Active Medications: Current Medications Generic Name Dose Route Start Last Admin Trade Name Freq PRN Reason Stop Dose Admin Acetaminophen 650 mg 08/26/23 17:05 08/26/23 23:22 Acetaminophen 325 Mg Tablet PO 650 mg Q6H PRN PRN Administration Pain 1-10 Or Fever >100.7 Amlodipine Besylate 5 mg 08/27/23 10:00 08/27/23 08:20 Amlodipine 5 Mg Tablet PO 5 mg [id number]@1000 JAN Administration Protocol Amlodipine Besylate 2.5 mg 08/30/23 10:00 Amlodipine 2.5 Mg Tablet PO Mo@1000 [facility] Protocol Enoxaparin Sodium 40 mg 08/27/23 10:00 08/26/23 23:17 Enoxaparin 40 Mg/0.4 Ml Syringe SC Not Given DAILY [facility] Sodium Chloride 1,000 mls @ 125 mls/hr 08/26/23 08:10 08/27/23 08:20 IV 125 mls/hr .Q8H JAN Administration Sodium Chloride 250 mls @ 15 mls/hr 08/26/23 17:09 IV .[id number] PRN Additional IVPB Infusion Sodium Chloride 250 mls @ 15 mls/hr 08/26/23 17:09 IV .[id number] PRN Saline Flush Piperacillin Sod/Tazobactam 50 mls @ 12.5 mls/hr 08/26/23 22:00 08/27/23 09:17 Sod 3.375 gm/ Sodium Chloride IV Infused Q8 JAN Infusion Ketorolac Tromethamine 15 mg 08/26/23 17:05 Ketorolac 15 Mg/Ml Vial IV 08/31/23 17:05 Q6H PRN PRN Pain Score 1-10 Ondansetron HCl 4 mg 08/26/23 17:05 Ondansetron 4 Mg/2 Ml Vial IV Q8H PRN PRN NAUSEA/VOMITING Sodium Chloride 10 - 40 ml 08/26/23 17:09 0.9% Saline Lock 10 Ml Syringe IV UD PRN SALINE FLUSH Anesthesia Focused Assessment* Temperature: 98.3 F Pulse Rate: 68 Blood Pressure: 139/64 Respiratory Rate: 16 Pulse Ox: 100 Airway Assessment Mouth opens: >3 cm Mallampati Score: II Focused Labs Anesthesia Preop lab: CBC WBC 3.8 K/mm3 (4.4-11.0) L 08/27/23 03:48 RBC 3.50 M/mm3 (4.2-5.4) L 08/27/23 03:48 Hgb 10.5 g/dL (12.0-15.0) L 08/27/23 03:48 Hct 33.1 % (37-47) L 08/27/23 03:48 Plt Count 215 K/mm3 (150-450) 08/27/23 03:48 CHEMISTRY Potassium 3.9 mmol/L (3.5-5.1) 08/27/23 03:48 Sodium 146 mmol/L (136-145) H 08/27/23 03:48 Magnesium 2.6 mg/dL (1.6-2.6) 08/27/23 03:48 Phosphorus 2.3 mg/dL (2.5-4.9) L 08/27/23 03:48 BUN 13 mg/dL (7-18) 08/27/23 03:48 Creatinine 1.27 mg/dL (0.55-1.02) H 08/27/23 03:48 Glucose 103 mg/dL (74-106) 08/27/23 03:48 COAG PT 14.5 SECONDS (11.7-14.9) 08/27/23 03:48 Review of Systems (Anesthesia) ROS Narrative System reviewed and no additional complaints, except as documented. [facility] Medical History HLD (hyperlipidemia) HTN (hypertension) Glaucoma Home Medications ?Medication ?Instructions ?Recorded ?Last Taken ?Type amlodipine 5 mg tablet 5 mg PO SUTUWETHFRSA BLOOD PRESSURE 10/02/20 08/26/23 History amlodipine 2.5 mg tablet 2.5 mg PO MO BLOOD PRESSURE 08/26/23 08/23/23 History Allergy/AdvReac Type Severity Reaction Status Date / Time No Known Allergies Allergy Verified 08/22/23 00:55 Social History Smoking Status: Never smoker substance use type: does not use
--- NOTE | 2023-08-27 14:56 | NURSING ---
Pt sent back for ERCP
--- NOTE | 2023-08-27 15:44 | PCM.PN.BLA ---
Progress Note I have been asked by Dr. Perry to evaluate patient for same?admission cholecystectomy given the diagnosis of choledocholithiasis. Patient was found in the preoperative holding area where she was resting comfortably. She is awaiting ERCP with gastroenterology. She describes some epigastric discomfort but overall is in reasonable spirits. I discussed with her the rationale behind performing a laparoscopic cholecystectomy to mitigate her risk for recurrent choledocholithiasis. I detailed the steps of the procedure and reviewed postoperative expectations for both any discomfort as well as risk for loose stools. Patient expressed understanding with the information relayed. Patient was then posted for the operating room at 8 AM tomorrow, 08/28/2023. Patient should be held n.p.o. past midnight and consent should be obtained.
--- NOTE | 2023-08-27 19:10 | RAD_ITS ---
ERCP INDICATION: Abdominal pain TECHNIQUE: Fluoroscopic guided ERCP was performed in the anterior projection by attending carpenter mold utilizing 36 seconds of fluoroscopic time with DLP of 7.68 mgy FINDINGS: 4 fluoroscopic guided images were obtained during the study for documentation of findings during the exam. For more complete information recommend correlation with procedural notes RAD/ERCP Biliary/Pancreas IMPRESSION: Fluoroscopic-guided ERCP Electronically Signed: Stevo Lord MD at 20:08 EDT ,
--- NOTE | 2023-08-27 19:41 | OP.ERCP_ITS ---
Patient Name: Juanis Morrell Procedure Date: 08/27/2023 2:09 PM Date of : 1945 Age: 77 Procedure: ERCP Indications: Bile duct stone(s) Providers: Joe Mauro DO Medicines: Monitored Anesthesia Care Patient Profile: This is a 77 year old female. Refer to note in patient chart for documentation of history and physical. Patient has symptoms of acute right upper quadrant abdominal pain and acute jaundice. This patient has no history of previous ERCP. This patient has no history of surgical alteration of the upper digestive tract anatomy. Complications: No immediate complications. Procedure: Pre-Anesthesia Assessment: - Prior to the procedure, a History and Physical was performed, and patient medications and allergies were reviewed. The patient is competent. The risks and benefits of the procedure and the sedation options and risks were discussed with the patient. All questions were answered and informed consent was obtained. Patient identification and proposed procedure were verified by the nurse in the pre-procedure area. Mental Status Examination: alert and oriented. Airway Examination: normal oropharyngeal airway and neck mobility. Respiratory Examination: clear to auscultation. CV Examination: normal. ASA Grade Assessment: II - A patient with mild systemic disease. After reviewing the risks and benefits, the patient was deemed in satisfactory condition to undergo the procedure. The anesthesia plan was to use moderate sedation / analgesia (conscious sedation). Immediately prior to administration of medications, the patient was re-assessed for adequacy to receive sedatives. The heart rate, respiratory rate, oxygen saturations, blood pressure, adequacy of pulmonary ventilation, and response to care were monitored throughout the procedure. The physical status of the patient was re-assessed after the procedure. After obtaining informed consent, the scope was passed under direct vision. Throughout the procedure, the patient's blood pressure, pulse, and oxygen saturations were monitored continuously. The Duodenoscope was introduced through the mouth, and advanced to the duodenum and used to inject contrast into the bile duct. The Duodenoscope was introduced through the mouth, and advanced to the duodenum and used to inject contrast into the bile duct and ventral pancreatic duct. The ERCP was accomplished without difficulty. The patient tolerated the procedure well. Scope In: 7:11:38 PM Scope Out: 7:27:51 PM Total Procedure Duration Time 0 hours 16 minutes 13 seconds Findings: The mold filler and drainer film was normal. The esophagus was successfully intubated under direct vision. The scope was advanced to a normal major papilla in the descending duodenum without detailed examination of the pharynx, larynx and associated structures, and upper GI tract. The upper GI tract was grossly normal. The bile duct was deeply cannulated with the 15 mm balloon. Contrast was injected. I personally interpreted the bile duct images. There was brisk flow of contrast through the ducts. Image quality was adequate. Contrast extended to the entire biliary tree. Opacification of the entire biliary tree except for the cystic duct and gallbladder was successful. The maximum diameter of the ducts was 10 mm. The lower third of the main bile duct contained one stone, which was 6 mm in diameter. The main bile duct was moderately dilated, with a stone causing an obstruction. The largest diameter was 9 mm. A straight Roadrunner wire was passed into the biliary tree. A 5 mm biliary sphincterotomy was made with a monofilament traction (standard) sphincterotome using ERBE electrocautery. There was no post-sphincterotomy bleeding. The biliary tree was swept with a 12 mm balloon starting at the bifurcation. Sludge was swept from the duct. All stones were removed. Dilation of the right main hepatic duct with 5-7-8.5 Fr catheter dilator was successful. One 10 Fr by 5 cm stent was placed 5 cm into the common bile duct. Bile flowed through the stent. The stent was in good position. Impression: - The entire main bile duct was moderately dilated, with a stone causing an obstruction. - Choledocholithiasis was found. Complete removal was accomplished by biliary sphincterotomy and balloon extraction. - A biliary sphincterotomy was performed. - The biliary tree was swept. - The right main hepatic duct was successfully dilated. - One stent was placed into the common bile duct. Procedure Code(s): --- Professional --- 72414, Endoscopic retrograde cholangiopancreatography (ERCP); with placement of endoscopic stent into biliary or pancreatic duct, including pre- and post-dilation and guide wire passage, when performed, including sphincterotomy, when performed, each stent [id number], Endoscopic retrograde cholangiopancreatography (ERCP); with removal of calculi/debris from biliary/pancreatic duct(s) 97425, 26, Endoscopic catheterization of the biliary ductal system, radiological supervision and interpretation 08475, Unlisted procedure, biliary tract CPT copyright 2021 [employer]. All rights reserved. The codes documented in this report are preliminary and upon bulb tester review may be revised to meet current compliance requirements. Joe Mauro DO 08/27/2023 7:40:27 PM This report has been signed electronically. Number of Addenda: 0 Note Initiated On: 08/27/2023 2:09 PM
--- NOTE | 2023-08-27 19:41 | OP.CCLET_ITS ---
08/27/2023 [address] [place] [address] Re : ERCP procedure for Juanis Morrell Dear Dr. Vazquez This procedure was performed on Sunday, August 27, 2023. My impressions and recommendations are as follows: Impressions : - The entire main bile duct was moderately dilated, with a stone causing an obstruction. - Choledocholithiasis was found. Complete removal was accomplished by biliary sphincterotomy and balloon extraction. - A biliary sphincterotomy was performed. - The biliary tree was swept. - The right main hepatic duct was successfully dilated. - One stent was placed into the common bile duct. Recommendations : My findings are described in the full procedure note, which is enclosed. If I can be of further assistance, please feel free to contact me at . Sincerely, Joe Mauro, 08/27/2023 7:40:27 PM This report has been signed electronically.
[2023-08-27] MEDS: Ketorolac 15 MG/ML Vial IV (23:03)
[2023-08-27] MEDS: 0.9% Saline Lock 10 ML Syringe IV (23:03)
[2023-08-28] VITALS (15 sets, daily range): BP systolic 112–164; BP diastolic 60–97; PULSE 76–101; RESP 11–16; TEMP 36.1–36.9; O2SAT 91–100
[2023-08-28 04:45] LABS: Absolute Lymphocyte Count 1.38 X10^3/uL (0.83-4.51); Absolute Neutrophil Count 3.2 X10^3/uL (2.0-7.7); Basophil# 0.03 X10^3/uL; Basophil% 0.6 % (0-1); Hematocrit 34.1 % (37-47); Hemoglobin 10.9 g/dL (12.0-15.0); Lymphocyte # 1.38 X10^3/ul (0.83-4.51); Lymphocyte % 27.7 % (19-41); Mean Corpuscular Volume 93.9 fL (81-99); Mean Platelet Vol. 10.1 fl (6.2-12.0); Monocyte# 0.33 X10^3/uL; Monocyte% 6.6 % (0-10); NRBC Flagged by Analyzer 0 % (0-5); Neutrophil # 3.23 X10^3/uL (2.7-7.7); Neutrophil % 64.7 % (47-70); Platelet Count 217 K/mm3 (150-450); RBC Distribution Width CV 14.1 % (11.6-14.6); RBC Distribution Width SD 48.3 fl (35.1-43.9); Red Blood Count 3.63 M/mm3 (4.2-5.4)
--- NOTE | 2023-08-28 05:00 | EKG12_ITS ---
Test Reason : AM EKG Blood Pressure : / mmHG Vent. Rate : 079 BPM Atrial Rate : 079 BPM P-R Int : 138 ms QRS Dur : 068 ms QT Int : 392 ms P-R-T Axes : 056 -10 016 degrees QTc Int : 449 ms Normal sinus rhythm Low voltage QRS Borderline ECG When compared with ECG of 26-AUG-2023 07:56, MANUAL COMPARISON REQUIRED, DATA IS UNCONFIRMED Confirmed by LILLI OQUENDO, SCOTT ([id number]), news assignment editor MADAI AN ([id number]) on 08/31/2023 11:04:19 AM Referred By: STAR Confirmed By:SCOTT REEDER MD
[2023-08-28] MEDS: 0.9% Normal Saline (1000mL) 1,000 ML 125 ML IV (05:04)
[2023-08-28] MEDS: Piperacil/Tazobactam 3.375 GM in 0.9% Normal Saline (50mL MB+) 50 ML IV ×3 (05:04→21:00)
[2023-08-28 05:12] LABS: AST(SGOT) 184 U/L (15-37); Alanine Aminotransfer ALT/SGPT 265 U/L (13-56); Albumin, Serum 2.8 g/dL (3.2-5.0); Alkaline Phosphatase 191 U/L (45-117); Anion Gap 7 (5-15); BUN 7 mg/dL (7-18); BUN/Creat Ratio 6.1 RATIO (10-20); Calcium,Total 8.2 mg/dL (8.5-10.1); Chloride 116 mmol/L (98-107); Creatinine, Serum 1.15 mg/dL (0.55-1.02); EST Glomerular Filtration Rate 49 mL/min (>60); Est Glom Filt Rate - Afr Amer 59 mL/min (>60); Estimated Creatinine Clearance 43.64 ml/min; Globulin 2.9 g/dL (2.2-4.2); Glucose 89 mg/dL (74-106); Potassium 3.7 mmol/L (3.5-5.1); Protein, Total 5.7 g/dL (6.4-8.2); Sodium Level 145 mmol/L (136-145)
--- NOTE | 2023-08-28 07:00 | RAD_ITS ---
HISTORY: [facility] COMPARISON: ERCP August 27, 2023 TECHNIQUE: A total of 110 fluoroscopic images were saved without a radiologist present. FINDINGS: Single scintigraphic sequence of the 110s images from percutaneous intraoperative cholangiogram demonstrates passage of contrast distally into the duodenum and refluxing into hepatic ducts. Total fluoroscopy time: 35.7 seconds Cumulative air kerma: 15.12 mGy RAD/Cholangiogram/ O R,Initial IMPRESSION: Fluoroscopic assistance for intraoperative cholangiogram. Please see operative report for additional information. Electronically Signed: Richard Soto MD at 18:01 EDT ,
--- NOTE | 2023-08-28 07:28 | NURSING ---
Gave Report to Surgery at this time. Pt going down via Bed at this time.
--- NOTE | 2023-08-28 07:47 | PCM.PRE.AN2 ---
ASA Classification* ASA Classification ASA Classification: 2 and E Assessment & Plan Anesthesia* Anesthesia Assessment Anesthesia Assessment: Discussed sedation and/or anesthesia options, risks, benefits, and alternatives with patient/parents/legal guardian/POA. Questions invited. The patient/parents/legal guardian/POA seems to understand and agrees to proceed with anesthesia plan. Reviewed the physical assessment, medical history, allergy history and patient home medications list prior to surgery/procedure/anesthetic and documented any changes. Performed airway and anesthesia risk assessments. 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 When Was Last Pacemaker Check QUESTION #4 FULL TEXT: You/Your Family Experience fever (hyperthermia) with Anesthesia Last Oral Intake Last Oral intake: Last Oral Intake NPO since 00:00 08/27/23 09:18 Meds taken in AM with sips of Yes 08/27/23 09:18 water? Meds patient instructed to amlodipine 08/27/23 09:18 take am of surgery PONV PONV - water resource specialist: PONV - water resource specialist Female HX of Motion Sickness HX of N/V After Surgery Non-Smoker Duration of Surgery greater than 60 minutes Number of Risk Factors PONV Score Height & Weight Height & Weight: Anesthesia: Height & Weight Height 5 ft 7 in 08/27/23 13:29 Weight: 76.3 kg 08/27/23 13:29 Body Mass Index (BMI) 26.3 08/27/23 09:18 Respiratory Assessment Respiratory Assessment - water resource specialist: Respiratory Tract Infection Hx - water resource specialist Hx Respiratory Tract Infection No 08/28/23 02:22 STOP Sleep Apnea STOP Sleep Apnea - water resource specialist: STOP Sleep Apnea - water resource specialist Hx Hypertension Yes 08/27/23 14:27 Hx Sleep Apnea No 08/26/23 17:06 CPAP BIPAP Do you snore loudly (louder No 08/26/23 17:06 than talking or can be heard Do you often feel tired/ No 08/26/23 17:06 fatigued/ sleepy during daytime? Has anyone observed you stop No 08/26/23 17:06 breathing during sleep? STOP Results Negative 08/27/23 19:45 QUESTION #5 FULL TEXT : Do you snore loudly (louder than talking or can be heard through closed doors)? Tobacco Use History Tobacco Use History - water resource specialist: Tobacco Use History - water resource specialist Tobacco Use Smoking Status Never smoker 08/26/23 17:06 Hx Tobacco Use No 08/26/23 17:06 Years Smoking Packs Smoked per Day Smoking Cessation Date was within the last 15 years Hx Smoking Cessation Date Hx Smoking Cessation Counseling Hematologic Medial History Hematologic Hx - water resource specialist: Hematologic Medical Hx - technical documentation specialist Hx of Blood Transfusion Yes 08/26/23 17:06 Hx of Transfusion in last 3 No 08/26/23 17:06 Months Date of Last Transfusion (if within last 3 months) Ever experience any problems No 08/26/23 17:06 with transfusion(s)? Specify any problems Hx of Preganancy in last 3 No 08/26/23 17:06 Months Nurse Filling Out Transfusion TAWANDA 08/26/23 17:06 & Questions: Date: 08/26/23 08/26/23 17:06 Time: 17:07 08/26/23 17:06 Patient unable to answer at this time (ie. confused, unrespo /Reproduction History /Reproductive History - water resource specialist: /Reproductive Hx- water resource specialist Hx Now No 08/28/23 02:22 Gestational Age (in weeks): EDC: Hx Hx Para Hx Section SAB No 08/28/23 02:22 Active Medications Active Medications: Current Medications Generic Name Dose Route Start Last Admin Trade Name Freq PRN Reason Stop Dose Admin Acetaminophen 650 mg 08/26/23 17:05 08/26/23 23:22 Acetaminophen 325 Mg Tablet PO 650 mg Q6H PRN PRN Administration Pain 1-10 Or Fever >100.7 Amlodipine Besylate 5 mg 08/27/23 10:00 08/27/23 08:20 Amlodipine 5 Mg Tablet PO 5 mg [id number]@1000 JAN Administration Protocol Amlodipine Besylate 2.5 mg 08/30/23 10:00 Amlodipine 2.5 Mg Tablet PO Mo@1000 [facility] Protocol Enoxaparin Sodium 40 mg 08/27/23 10:00 08/26/23 23:17 Enoxaparin 40 Mg/0.4 Ml Syringe SC Not Given DAILY [facility] Sodium Chloride 1,000 mls @ 125 mls/hr 08/26/23 08:10 08/28/23 05:04 IV 125 mls/hr .Q8H JAN Administration Sodium Chloride 250 mls @ 15 mls/hr 08/26/23 17:09 IV .[id number] PRN Additional IVPB Infusion Sodium Chloride 250 mls @ 15 mls/hr 08/26/23 17:09 IV .[id number] PRN Saline Flush Piperacillin Sod/Tazobactam 50 mls @ 12.5 mls/hr 08/26/23 22:00 08/28/23 05:04 Sod 3.375 gm/ Sodium Chloride IV 12.5 mls/hr Q8 JAN Administration Ketorolac Tromethamine 15 mg 08/26/23 17:05 08/27/23 23:03 Ketorolac 15 Mg/Ml Vial IV 08/31/23 17:05 15 mg Q6H PRN PRN Administration Pain Score 1-10 Ondansetron HCl 4 mg 08/26/23 17:05 Ondansetron 4 Mg/2 Ml Vial IV Q8H PRN PRN NAUSEA/VOMITING Sodium Chloride 10 - 40 ml 08/26/23 17:09 08/27/23 23:03 0.9% Saline Lock 10 Ml Syringe IV 10 ml UD PRN Administration SALINE FLUSH Anesthesia Focused Assessment* Temperature: 98.5 F Pulse Rate: 82 Blood Pressure: 126/76 Respiratory Rate: 16 Pulse Ox: 99 Airway Assessment Mouth opens: >3 cm Mallampati Score: II Focused Labs Anesthesia Preop lab: CBC WBC 5.0 K/mm3 (4.4-11.0) 08/28/23 04:05 RBC 3.63 M/mm3 (4.2-5.4) L 08/28/23 04:05 Hgb 10.9 g/dL (12.0-15.0) L 08/28/23 04:05 Hct 34.1 % (37-47) L 08/28/23 04:05 Plt Count 217 K/mm3 (150-450) 08/28/23 04:05 CHEMISTRY Potassium 3.7 mmol/L (3.5-5.1) 08/28/23 04:05 Sodium 145 mmol/L (136-145) 08/28/23 04:05 Magnesium 2.6 mg/dL (1.6-2.6) 08/27/23 03:48 Phosphorus 2.3 mg/dL (2.5-4.9) L 08/27/23 03:48 BUN 7 mg/dL (7-18) 08/28/23 04:05 Creatinine 1.15 mg/dL (0.55-1.02) H 08/28/23 04:05 Glucose 89 mg/dL (74-106) 08/28/23 04:05 COAG PT 14.5 SECONDS (11.7-14.9) 08/27/23 03:48 Review of Systems (Anesthesia) ROS Narrative System reviewed and no additional complaints, except as documented. [facility] Medical History HLD (hyperlipidemia) HTN (hypertension) Glaucoma Home Medications ?Medication ?Instructions ?Recorded ?Last Taken ?Type amlodipine 5 mg tablet 5 mg PO SUTUWETHFRSA BLOOD PRESSURE 10/02/20 08/26/23 History amlodipine 2.5 mg tablet 2.5 mg PO MO BLOOD PRESSURE 08/26/23 08/23/23 History Allergy/AdvReac Type Severity Reaction Status Date / Time No Known Allergies Allergy Verified 08/22/23 00:55 Social History Smoking Status: Never smoker substance use type: does not use
--- NOTE | 2023-08-28 08:00 | LIVB_PTH ---
PATIENT: STEVE HASSAN LOC: MS3 U#:[id number] AGE/SX: 77/F ROOM: [facility] [place] RE08/26/[address]: Dr. Ivelisse Gonzalez DO : 1945 BED: 1 DIS: 08/30/2023 SPEC #: [id number] RECD: 08/30/23 08:53 STATUS: RITA RERaghav #: [id number] DICK: 08/28/23 08:[address]: Jj Carr DEPT: SURGICAL PATHOLOGY RECD BY: Waqar Oneil ENTERED: 08/30/23 11:33 SP TYPE: LIVER BX OTHR DR: MD Dr. Ivelisse El DO Dr. Nana Yaa Koram, MD Dr. Victor Velasquez, MD Tissues: A - Liver, NOS B - Gallbladder, NOS Procedures: Surgery Specimen Level III Surgery Specimen Level V HEADER OPERATION: Laparoscopic, cholecystectomy with IOC, liver biopsy PRE-OP DIAGNOSIS: Choledocholithiasis TISSUE SUBMITTED: A- Liver biopsy segment four, B- Gallbladder MICROSCOPIC DIAGNOSIS A. Liver, biopsy: Cauterized fragment of benign liver parenchyma. No evidence of hepatitis. No evidence of cirrhosis. See comment. B. Gallbladder, cholecystectomy: Chronic cholecystitis and cholelithiasis. AM/ 08/31/2023 COMMENT A. Reticulin, iron, PAS, PASD, and trichrome stains with match controls for the above diagnosis. Clinical correlation is suggested. Trichrome stain does not reveal fibrosis. PAS and PASD stains do not reveal accumulation of abnormal proteins. Iron stains does not reveal abnormal accumulation of iron in the liver parenchyma. Trichrome stain reveals a normal hepatic parenchymal architecture. MICROSCOPIC DESCRIPTION Slides are reviewed. GROSS DESCRIPTION A. Received in fixative is one container labeled with the patient's name and designated Liver biopsy. The specimen consists of an irregular fragment of light to dark lazcano soft tissue measuring 0.6 x 0.5 x 0.2cm. The specimen is submitted in its entirety in one cassette. B. Received is one container labeled with the patient's name and designated gallbladder. The specimen consists of a gallbladder measuring 6.5 x 2.5 x 2.5 cm. The external surface is smooth and glistening. Focally, it is granular, hemorrhagic and contains cautery artifact. The lumen of the gallbladder contains yellow-green mucoid bile and multiple black calculi ranging in size from 0.1 to 0.6 cm in greatest dimension. The mucosa is bile-stained and without any mass lesions. The gallbladder wall averages 0.2 cm in thickness and is free of mass lesions. Clinical Laboratory Service Teacher sections of the gallbladder and the cystic duct at margin of resection are submitted in one cassette. / AM: 08/30/2023 TC:3 CPT: 75042,26846,11528y5
[2023-08-28] MEDS: Bupiv/Epi 0.25% 30 ML Vial (10:05)
--- NOTE | 2023-08-28 10:09 | PCM.OPRPT ---
Report of Operation Date of Procedure: 08/28/23 Pre-Operative Diagnosis: Choledocholithiasis status post ERCP with stone extraction, sphincterotomy, and common bile duct stent Post-Operative Diagnosis: 1. Choledocholithiasis status post ERCP with stone extraction, sphincterotomy, and common bile duct stent 2. Chronic cholecystitis 3. Liver nodule over segment 4 Surgery/Procedure Performed:: 1. Excisional liver biopsy 2. Laparoscopic cholecystectomy with intraoperative cholangiogram Surgeon: Jj Carr spacer type bar and segment: Ilana Herman Type of Anesthesia: General/Supplemental Anesthesiologist: Raza Kaminski Specimen's removed: Gallbladder Drains: None Estimated Blood Loss (mL): 25 Description of Procedure: After proper identification in the preoperative holding area the patient was brought to the operating room where she was positioned supine on the operating room table. Preoperatively SCDs were placed (antibiotics were administered on the floor prior to bringing patient down for surgery). General anesthesia was then induced. Patient's abdomen was prepped and draped in usual sterile fashion. A formal timeout was conducted to confirm both patient and the procedure. Procedure was begun with a supraumbilical incision which was extended deeply down to the level of the fascia. The fascia was elevated and incised, as well as the peritoneum. A finger sweep was performed to ensure there were no underlying adhesions and a 12 mm balloon trocar was inserted. Pneumoperitoneum was established at 10 mmHg. Three additional trocars (all 5 mm) were placed in the epigastrium and in the right upper quadrant. Inspection of the peritoneum revealed no inadvertent injury to the viscera below. The gallbladder was visualized with minimal inflammation of the fundal region (however there is more significant inflammation of the infundibulum as it was placed on traction). Before proceeding with the gallbladder portion of the case identified a 2 to 3 mm nodule on the surface of the liver over segment 4 that I elected to biopsy with an excisional biopsy technique. First the liver was scored circumferentially with electrocautery and then the lesion was sharply excised by using scissors that were also electrified to apply cautery simultaneously. The specimen was withdrawn from our subxiphoid port site and passed off the field for pathologic processing. Hemostasis was confirmed at the biopsy site. Then the gallbladder fundus was then grasped and elevated cephalad. Using careful dissection the peritoneum was opened and the structures of the hepatocystic triangle were delineated. Once the critical view of safety was obtained, the cystic duct was singly clipped and partially divided with a ductotomy. The proximal duct was milked of any debris. Using an [place] clamp, a cholangiocatheter was fed into the proximal segment of the cystic duct and clamped into place. Unfortunately when I attempted the cholangiography the catheter became displaced and I had extravasation of the contrast out of the surgical field over the liver. Thus I returned to the abdomen laparoscopically and attempted to replace the catheter within the cystic duct, however, there was significant resistance to doing so and I elected to change my approach using a metal tipped catheter instead via a 14-gauge angiocatheter placed through the abdominal wall superiorly. Even with this change in the approach there was significant resistance to passage of the catheter and I became suspicious for a foreshortened cystic duct and occlusion was patient's common bile duct. Based on this suspicion I limited the placement of the catheter and work to occluded across its metal tip using application of a couple of titanium clips. Fortunately this resulted in occlusion and the system did allow for passage of saline. Under fluoroscopy a cholangiogram was then obtained showing a shortened cystic duct flowing into a dilated common bile duct (stented) with unobstructed antegrade flow of contrast into the duodenum. There was also retrograde flow through the common hepatic duct into the right and left hepatic ducts. Satisfied with this result, the cholangiocatheter was withdrawn and the proximal cystic duct was sealed with clips and the cystic duct was completely transected. The same process was used for the cystic artery. The gallbladder was then removed from the gallbladder fossa with the use of electrocautery. However, in doing so I tried to stay directly on the gallbladder and was in no way excavating the liver parenchyma when I encountered significant venous bleeding midway up the gallbladder fossa. After applying manual pressure through back pressure on the gallbladder the bleeding seemed to slow and I reinspected the site to find to small sideholes in what appeared to be the middle hepatic vein. Given the large size of this vessel I did not want to simply proceed with clipping through the liver parenchyma and thereby potentially incur more bleeding?especially since I was able to establish a controlled situation simply through application of pressure. Therefore, I opted to upsized our subxiphoid port site to a 12 mm port and through this larger port placed fibrillar hemostatic agent and a Ray-Ray gauze. The fibrillar was then applied to the gallbladder fossa and the Ray-Ray gauze was placed atop the fibrillar to compress the area of bleeding. Pressure was held for 5 minutes and the area was reinspected. There was virtually no bleeding upon this reinspection but the fibrillar was allowed to remain in place. The gallbladder was then fully removed from the gallbladder fossa and placed in a Endo Catch bag. Desiring an additional measure to ensure hemostasis and facilitate clotting, I placed Surgiflo hemostatic agent over the fibrillar gauze and allowed the liver to fall back into place. After this application of Surgiflo the product remained white?indicating to me that there was no further bleeding. I did also drop the patient's peritoneal insufflation pressure to 8 mmHg to be sure this was not artificially assisting with the hemostasis through back pressure. Morison's pouch was irrigated and the effluent was suctioned free of the peritoneum. Hemostasis was again confirmed in the gallbladder fossa as well as anteriorly where the liver biopsy had been performed. However 2X12 mm port sites were closed under laparoscopic vision using #1 PDS and a Santiago Nicholson suture passer. Pneumoperitoneum was evacuated. A total of 30 mL of anesthetic was injected at the port sites for postoperative pain control. The skin of each port site was then closed in subcuticular fashion using 4-0 Monocryl. Steri-Strips and bandages were applied as dressings. Patient tolerated the procedure well without any apparent complications. On emergence from their anesthetic the patient was taken to PACU for ongoing recovery. Complications Mild gallbladder fossa bleeding Admit VTE Documentation VTE Mechan Device Prophylaxis: SCD's
--- NOTE | 2023-08-28 10:21 | PCM.POST.ANE ---
Anesthesia: Postop Eval I Current Vital Signs Temperature: 97.8 F Pulse Rate: 99 Blood Pressure: 144/71 Respiratory Rate: 16 Pulse Ox: 99 Oxygen Delivery Method: Room Air Assessment Airway patent: Yes Spontaneous unlabored respirations: Yes Mental status: Awake and Calm nausea: No Vomiting: No Anesthesia Complication: No Fluid Hydration Crystalloid volume administer (ml): 1,200 Total IV fluid infused: 1,200 Progress Note Anesthesia document: Postop Eval 1 completed: Yes
--- NOTE | 2023-08-28 10:27 | PCM.POST.ANE ---
Anesthesia: Postop Eval I Current Vital Signs Temperature: 97 F Pulse Rate: 95 Blood Pressure: 112/63 Respiratory Rate: 16 Pulse Ox: 91 Oxygen Delivery Method: Room Air Assessment Airway patent: Yes Spontaneous unlabored respirations: Yes Mental status: Awake and Calm nausea: No Vomiting: No Anesthesia Complication: No Fluid Hydration Crystalloid volume administer (ml): 1,200 Total IV fluid infused: 1,200 Progress Note Anesthesia document: Postop Eval 1 completed: Yes
--- NOTE | 2023-08-28 10:30 | PCM.POSTANE2 ---
Anesthesia Postop Eval I Sum Postop Eval Completion status Anesthesia document: Postop Eval 1 completed: Yes Anesthesia Postop Eval I Summary Anesthesia Postop Eval I Summary: Anesthesia Postop Eval I: Assessment Summary Airway patent Yes 08/28/23 10:29 Spontaneous unlabored Yes 08/28/23 10:29 respirations Mental status Awake,Calm 08/28/23 10:29 nausea No 08/28/23 10:29 Vomiting No 08/28/23 10:29 Anesthesia Postop Eval I: Fluid Summary Crystalloid volume administer 1,200 08/28/23 10:29 (ml) Colloids volume administered ( ml) Blood Product volume administered (ml) Total IV fluid infused 1,200 08/28/23 10:29 Anesthesia Postop Eval I: Summary Notes Anesthesia Complication No 08/28/23 10:29 Anesthesia Complication Comment: Post-operative progress note Anesthesia: Postop Eval II Evaluation Mental status: Awake Pain Level: 0 nausea: No Vomiting: No Complications Anesthesia Complication: No
--- NOTE | 2023-08-28 11:23 | PN_ITS ---
Subjective Subjective Patient seen and examined. She had laparoscopic cholecystectomy today. Pain is well controlled. Review of systems is otherwise negative. She has remained hemodynamically stable. Objective Data Objective Data Vital Signs: Vital Signs Temp Pulse Resp BP Pulse Ox O2 Del Method 98 F 92 16 133/60 H 93 Room Air 08/28/23 10:44 08/28/23 10:44 08/28/23 10:44 08/28/23 10:44 08/28/23 10:44 08/28/23 10:44 Oxygen Delivery Method Room Air Weight: 168 lb 3.403 oz Body Mass Index (BMI) 26.3 Intake & Output: Intake and Output for Last 24 Hours 08/26/23 08/27/23 08/28/23 23:59 23:59 23:59 Intake Total 1340 / 1340 3018.75 / 3018.75 1089.58 / 1089.58 Output Total 210 / 210 210 / 210 Balance 1340 / 1340 2808.75 / 2808.75 879.58 / 879.58 Lab / Micro Data 08/28/23 04:05 08/28/23 04:05 Labs: Laboratory Results - last 24 hr 08/28/23 04:05: WBC 5.0, RBC 3.63 L, Hgb 10.9 L, Hct 34.1 L, MCV 93.9, MCH 30.0, MCHC 32.0, RDW Std Deviation 48.3 H, RDW Coeff of Tello 14.1, Plt Count 217, MPV 10.1, Immature Gran % (Auto) 0.400, Neut % (Auto) 64.7, Lymph % (Auto) 27.7, [place] % (Auto) 6.6, Eos % (Auto) 0.0, Baso % (Auto) 0.6, Absolute Neuts (auto) 3.2, Absolute Lymphs (auto) 1.38, Nucleated RBC % 0, Sodium 145, Potassium 3.7, Chloride 116 H, Carbon Dioxide 22.0, Anion Gap 7, BUN 7, Creatinine 1.15 H, Estim Creat Clear Calc 43.64, Est GFR (MDRD) Af Amer 59 L, Est GFR (MDRD) Non-Af 49 L, BUN/Creatinine Ratio 6.1 L, Glucose 89, Calcium 8.2 L, Total Bilirubin 0.90, AST 184 H, ALT 265 H, Alkaline Phosphatase 191 H, Total Protein 5.7 L, A lbumin 2.8 L, Globulin 2.9, Albumin/Globulin Ratio 1.0 Radiography Diagnostic Testing: Radiology Impression Endo Retro Cholangiopancreatogram 08/27/23 19:10 IMPRESSION: Fluoroscopic-guided ERCP Electronically Signed: Stevo Lord MD at 20:08 EDT Reading Location ID and State: [facility] / [place] Tel , Service support , Physical Exam Const alert, oriented x3, no apparent distress and well nourished General Appearance: cooperative and well developed HEENT normocephalic, head/scalp atraumatic, moist oral mucous membranes and oropharynx normal Eyes PERRL and EOMs intact bilaterally Neck no lymphadenopathy and supple Lymph Lymphatic: no lymphadenopathy noted and no lymphedema noted Resp normal respiratory effort, normal air movement, no retractions and clear to auscultation bilaterally Cardio regular rate, regular rhythm, S1 normal heart sound, S2 normal heart sound and no murmurs GI normal to inspection, nondistended, normoactive bowel sounds, soft to palpation, non-tender and non-distended GI Narrative: intact dressing over laparoscopic site Extremity normal capillary refill, no clubbing, cyanosis or edema and no calf tenderness General Extremity: no tenderness to palpation of joints or extremities Skin General Skin Exam: no breakdown Neuro oriented x3, CN's II-XII intact bilaterally, moves all extremities, no focal motor deficits, no sensory deficits noted and deep tendon reflexes 2+ bilaterally Motor Exam: strength 5/5 throughout and general weakness Psych thought process normal, cooperative and affect normal Appearance: appropriate Assessment & Plan Assessment/Plan (1) Cholelithiasis: (2) Abdominal pain, acute: PLAN: Plan #Acute choledocholithiasis with cholelithiasis * abdominal pain has resolved * GI on board * had ERCP yesterday which showed main bile ducts moderate dilation with stone causing obstruction. There was choledocholithiasis which was completely removed by biliary sphincterotomy and balloon extraction, and a stent was placed in the common bile duct. The right main hepatic duct was successfully dilated. * PO tylenol, PO oxycodone and IV morphine prn for pain * had laparoscopic cholecystectomy today * liver enzymes are trending downwards. * per general surgery, to keep on clear liquid diet today. * #Hypertension: on amlodipine. IV hydralazine prn. #Elevated liver enzymes: liver enzymes are trending downwards. will continue monitoring. DVT prophylaxis: Lovenox Charges/Coding Visit Charges Inpatient E&M: 36021 Subs Hosp L2
--- NOTE | 2023-08-28 11:29 | PCM.POSTANE2 ---
Anesthesia Postop Eval I Sum Postop Eval Completion status Anesthesia document: Postop Eval 1 completed: Yes Anesthesia Postop Eval I Summary Anesthesia Postop Eval I Summary: Anesthesia Postop Eval I: Assessment Summary Airway patent Yes 08/28/23 10:29 Spontaneous unlabored Yes 08/28/23 10:29 respirations Mental status Awake 08/28/23 10:30 nausea No 08/28/23 10:30 Vomiting No 08/28/23 10:30 Anesthesia Postop Eval I: Fluid Summary Crystalloid volume administer 1,200 08/28/23 10:29 (ml) Colloids volume administered ( ml) Blood Product volume administered (ml) Total IV fluid infused 1,200 08/28/23 10:29 Anesthesia Postop Eval I: Summary Notes Anesthesia Complication No 08/28/23 10:30 Anesthesia Complication Comment: Post-operative progress note Anesthesia: Postop Eval II Evaluation Mental status: Awake and Calm Pain Level: 1 nausea: No Vomiting: No Complications Anesthesia Complication: No
[2023-08-28] MEDS: amLODIPine 5 MG Tablet PO (13:34)
--- NOTE | 2023-08-28 15:47 | NURSING ---
Lab just arrived in pts room to get ordered H&H.
[2023-08-28 16:04] LABS: Hematocrit 43.2 % (37-47); Hemoglobin 13.8 g/dL (12.0-15.0)
[2023-08-28] MEDS: 0.9% Normal Saline (1000mL) 1,000 ML 75 ML IV (16:51)
[2023-08-28] MEDS: 0.9% Saline Lock 10 ML Syringe IV (16:55)
[2023-08-28] MEDS: Ketorolac 15 MG/ML Vial IV (16:56)
[2023-08-28] MEDS: Acetaminophen 325 MG Tablet 650 MG PO (22:44)
[2023-08-29 01:54] VITALS: BP 153/76; PULSE 90; RESP 16; TEMP 36.6; O2SAT 99
[2023-08-29] MEDS: Ketorolac 15 MG/ML Vial IV ×3 (02:00→23:36)
[2023-08-29] MEDS: Piperacil/Tazobactam 3.375 GM in 0.9% Normal Saline (50mL MB+) 50 ML IV (06:07)
[2023-08-29] MEDS: 0.9% Normal Saline (1000mL) 1,000 ML 75 ML IV (06:07)
[2023-08-29 06:08] VITALS: BP 153/58; PULSE 91; RESP 16; TEMP 36.9; O2SAT 100
[2023-08-29 06:20] LABS: Absolute Lymphocyte Count 1.15 X10^3/uL (0.83-4.51); Absolute Neutrophil Count 7.6 X10^3/uL (2.0-7.7); Basophil# 0.01 X10^3/uL; Basophil% 0.1 % (0-1); Hematocrit 34.4 % (37-47); Lymphocyte # 1.15 X10^3/ul (0.83-4.51); Lymphocyte % 12.2 % (19-41); Mean Corpuscular Hgb 29.9 pg (27.0-32.0); Mean Corpuscular Volume 93.5 fL (81-99); Mean Platelet Vol. 10.6 fl (6.2-12.0); Monocyte# 0.64 X10^3/uL; Monocyte% 6.8 % (0-10); NRBC Flagged by Analyzer 0 % (0-5); Neutrophil # 7.59 X10^3/uL (2.7-7.7); Neutrophil % 80.5 % (47-70); Platelet Count 227 K/mm3 (150-450); RBC Distribution Width CV 13.7 % (11.6-14.6); RBC Distribution Width SD 46.7 fl (35.1-43.9); Red Blood Count 3.68 M/mm3 (4.2-5.4); White Blood Count 9.4 K/mm3 (4.4-11.0)
[2023-08-29 06:49] LABS: ALB/GLOB Ratio 0.9 RATIO (0.9-2.4); AST(SGOT) 87 U/L (15-37); Alanine Aminotransfer ALT/SGPT 185 U/L (13-56); Albumin, Serum 2.7 g/dL (3.2-5.0); Alkaline Phosphatase 154 U/L (45-117); Anion Gap 2 (5-15); BUN 9 mg/dL (7-18); BUN/Creat Ratio 7.3 RATIO (10-20); Calcium,Total 8.4 mg/dL (8.5-10.1); Chloride 113 mmol/L (98-107); Creatinine, Serum 1.23 mg/dL (0.55-1.02); EST Glomerular Filtration Rate 45 mL/min (>60); Est Glom Filt Rate - Afr Amer 54 mL/min (>60); Globulin 2.9 g/dL (2.2-4.2); Glucose 107 mg/dL (74-106); Potassium 3.6 mmol/L (3.5-5.1); Protein, Total 5.6 g/dL (6.4-8.2); Sodium Level 141 mmol/L (136-145)
[2023-08-29] MEDS: Acetaminophen 325 MG Tablet 650 MG PO ×2 (06:50→22:02)
--- NOTE | 2023-08-29 08:11 | PCM.PN.SRG ---
Subjective Subjective Patient seen and examined during AM rounds. She describes some right upper quadrant soreness over abdominal wall but otherwise is feeling okay. She denies an appetite and shares that she has not had a bowel movement in several days. Objective Data Objective Data Vital Signs: Vital Signs Temp Pulse Resp BP Pulse Ox O2 Del Method 98.4 F 91 16 153/58 H 100 Room Air 08/29/23 06:08 08/29/23 06:08 08/29/23 06:08 08/29/23 06:08 08/29/23 06:08 08/29/23 06:08 Oxygen Delivery Method Room Air Weight: 168 lb 3.403 oz Body Mass Index (BMI) 26.3 Intake & Output: Intake and Output for Last 24 Hours 08/27/23 08/28/23 08/29/23 23:59 23:59 23:59 Intake Total 3018.75 / 3018.75 2379.58 / 2579.58 1445 / 1445 Output Total 210 / 210 310 / 1210 1700 / 1700 Balance 2808.75 / 2808.75 2069.58 / 1369.58 -255 / -255 Lab / Micro Data 08/29/23 05:00 08/29/23 05:00 Labs: Laboratory Results - last 24 hr 08/28/23 15:55: Hgb 13.8, Hct 43.2 08/29/23 05:00: WBC 9.4, RBC 3.68 L, Hgb 11.0 L, Hct 34.4 L, MCV 93.5, MCH 29.9, MCHC 32.0, RDW Std Deviation 46.7 H, RDW Coeff of Tello 13.7, Plt Count 227, MPV 10.6, Immature Gran % (Auto) 0.400, Neut % (Auto) 80.5 H, Lymph % (Auto) 12.2 L, [place] % (Auto) 6.8, Eos % (Auto) 0.0, Baso % (Auto) 0.1, Absolute Neuts (auto) 7.6, Absolute Lymphs (auto) 1.15, Nucleated RBC % 0, Sodium 141, Potassium 3.6, Chloride 113 H, Carbon Dioxide 26.0, Anion Gap 2 L, BUN 9, Creatinine 1.23 H, Estim Creat Clear Calc 40.80, Est GFR (MDRD) Af Amer 54 L, Est GFR (MDRD) Non-Af 45 L, BUN/Creatinine Ratio 7.3 L, Glucose 107 H, Calcium 8.4 L, Total Bilirubin 0.60, AST 87 H, ALT 185 H, Alkaline Phosphatase 154 H, Total Protein 5.6 L, Albumin 2.7 L, Globulin 2.9, Albumin/Globulin Ratio 0.9 Radiography Diagnostic Testing: Radiology Impression Cholangiogram 08/28/23 07:00 IMPRESSION: Fluoroscopic assistance for intraoperative cholangiogram. Please see operative report for additional information. Electronically Signed: Richard Soto MD at 18:01 EDT , Physical Exam Const oriented x3 and no apparent distress Resp normal respiratory effort GI GI Narrative: Umbilical dressing has been replaced but this new dressing is clean dry and intact. Otherwise operative dressings are clean dry and intact. Patient's abdomen is nondistended, soft, minimally tender to palpation of the right upper quadrant Bladder / Kidney Exam: catheter in place urethral Assessment & Plan Assessment/Plan (1) Elevated liver enzymes: PLAN: Improving (2) Choledocholithiasis: PLAN: Improving status post ERCP and now postoperative day 1 from cholecystectomy with intraoperative cholangiogram 08/28/2023. There is some concern for bleeding as the gallbladder was removed from the gallbladder fossa so patient was kept on clear liquid diet and interval H&H was obtained yesterday. Both this lab and this morning's lab suggestibility of her hemoglobin. She has furthermore remained hemodynamically stable with her vital signs. Most notably patient did have some postoperative urinary retention requiring first a straight catheterization and then placement of an indwelling [place] catheter. This is managed by patient's hospitalist team. From a surgical standpoint we will advance to a regular diet, DC IV antibiotics, and begin a bowel regimen. If patient tolerates these changes and a suitable remedy can be found for her urinary retention she would be eligible for discharge to home from a surgical standpoint. Would ask for outpatient follow-up with me in 7 to 10 days. (3) Cholelithiasis: PLAN: Postop day 1 from [facility] with [facility] Charges/Coding Visit Charges Inpatient E&M: 41023 Subs Hosp L2
[2023-08-29 08:13] VITALS: BP 110/55; PULSE 76; RESP 18; TEMP 36.4; O2SAT 99
[2023-08-29 11:38] VITALS: BP 134/40; PULSE 109
[2023-08-29] MEDS: amLODIPine 5 MG Tablet PO (11:39)
[2023-08-29] MEDS: oxyCODONE 5 MG Tablet PO (11:39)
[2023-08-29] MEDS: Senna/Docusate Sodium 1 Tablet PO ×2 (11:39→21:59)
[2023-08-29] MEDS: 0.9% Saline Lock 10 ML Syringe IV ×2 (11:40→22:03)
--- NOTE | 2023-08-29 11:45 | NURSING ---
mead out at this time
--- NOTE | 2023-08-29 12:17 | DCINST_ITS ---
Discharge Instructions Diet Discharge Diet: Low fat / Low cholesterol Activity Discharge Activity: Return to Normal Activity Weight Bearing Status: Weight bearing as tolerated Dressing / Incision Call your doctor if you observe: Fever of 101 or Higher, Shortness of breath, Dizziness, Swelling in the ankles, Chest pain and Increased palpitations (irregular heartbeat) Follow Up Care Test Results: Test results from this visit will be discussed in further detail at your follow- up appointment, if applicable. Discharge Plan Admission Admit Date/Time: 08/26/23 15:41 Primary Reason for Your Visit: acute choledocholithiasis Attending Provider: Hyun Rod Primary Care Provider: Lane Vazquez Consulting Providers: Priya Harden Instructions Patient Instructions: ED Gallstones with Biliary Colic Discharge Orders/Prescriptions Prescriptions: New oxycodone 5 mg Tablet 5 mg PO Q6H PRN PRN (Reason: Pain Score 6-10) 3 Days Qty: 12 0RF Continued amlodipine 5 mg tablet 5 mg PO SUTUWETHFRSA amlodipine 2.5 mg tablet 2.5 mg PO MO Referrals / Follow Up: Lane Vazquez MD [Primary Care Provider] - Disposition Disposition (needs filled in before D/C Order can be placed): Home, Self Care
--- NOTE | 2023-08-29 12:19 | DS.PCM_ITS ---
Providers Date of Admission: 08/26/23 Date of Discharge: 08/29/23 Primary Care Physician: Dr. Lane Vazquez MD Consultations 08/26/23 17:05 Consult: Gastroenterology Routine Consulting Provider: [facility] Reason for Consult: Choledocholithiasis EMERGENT Consult: Yes Notified: Yes Date Notified: 08/26/23 Time Notified: 15:45 Method of Notification: ED Physician Initiated Reason For Visit: CHOLEDOCHOLITHIASIS Diagnosis Discharge Diagnosis (1) Elevated liver enzymes: Status: Acute Code(s): R74.8 - Abnormal levels of other serum enzymes (2) Choledocholithiasis: Status: Acute Code(s): K80.50 - Calculus of bile duct without cholangitis or cholecystitis without obstruction (3) Cholelithiasis: Status: Acute Code(s): K80.20 - Calculus of gallbladder without cholecystitis without obstruction Plan #Acute choledocholithiasis with cholelithiasis * abdominal pain has resolved * GI on board * had ERCP yesterday which showed main bile ducts moderate dilation with stone causing obstruction. There was choledocholithiasis which was completely removed by biliary sphincterotomy and balloon extraction, and a stent was placed in the common bile duct. The right main hepatic duct was successfully dilated. * PO tylenol, PO oxycodone and IV morphine prn for pain * had laparoscopic cholecystectomy today * liver enzymes are trending downwards. * per general surgery, to keep on clear liquid diet today. * #Hypertension: on amlodipine. IV hydralazine prn. #Elevated liver enzymes: liver enzymes are trending downwards. will continue monitoring. DVT prophylaxis: Lovenox Medications at Discharge Home Medications amlodipine 5 mg tablet 5 mg PO SUTUWETHFRSA BLOOD PRESSURE 10/02/20 amlodipine 2.5 mg tablet 2.5 mg PO MO BLOOD PRESSURE 08/26/23 oxycodone 5 mg tablet 5 mg PO Q6H PRN PRN Pain Score 6-10 3 days #12 tabs 08/29/23 Hospital Course Operations cholecystecomy Procedures - (ERCP) Summary of Care Provided Minutes Spent on Discharge: 48 Hospital Course: Patient is a 77-year-old female with past medical history as outlined which includes hypertension was admitted through the ED on 08/26/2023 with a complaint of severe epigastric pain which started at 6 AM on the morning of admission. Pain was nonradiating and compression like not had similar pain a few days prior and came to the ED. The pain then improved with pain meds. CT of the abdomen pelvis done then showed no acute pathology so she was discharged home. Pain however persisted so she came back to the ED where labs done was significant for elevated AST and ALT as well as ALP though total bilirubin was only 0.7. High- sensitivity troponin was negative. Gallbladder ultrasound showed evidence of choledocholithiasis. She was therefore admitted manage abdominal pain likely due to acute choledocholithiasis. Gastroenterology was consulted and patient had ERCP done which showed main bile ducts moderate dilation with stone causing obstruction. There was choledocholithiasis which was completely removed by biliary sphincterotomy and balloon extraction, and a stent was placed in the common bile duct. The right main hepatic duct was successfully dilated. Liver enzymes trended downwards. General surgery was consulted and patient had laparoscopic cholecystectomy done on 08/28/2023. Postop course was complicated by urinary retention which subsequently resolved. Pain improved and she was able to tolerate a diet. She was discharged home on 08/29/2023 with a prescription for p.o. oxycodone 5 mg every 6 hours as needed for total of 12 tablets for 3 days. OARRS score was checked and no red flags were seen. She is to follow-up with her primary care doctor and follow-up with general surgery on outpatient basis Patient was seen and examined prior to discharge. She had no active complaints. Review of systems otherwise negative. Labs and vitals reviewed. Medication reviewed and reconciled. Physical Exam Const alert, oriented x3, no apparent distress and well nourished General Appearance: cooperative, comfortable, well kempt and well developed HEENT normocephalic, head/scalp atraumatic, hearing grossly normal bilaterally, moist oral mucous membranes and oropharynx normal Mouth: oral and palatal mucosa normal Eyes PERRL, EOMs intact bilaterally and conjunctivae normal Neck no lymphadenopathy and supple Lymph Lymphatic: no lymphadenopathy noted and no lymphedema noted Resp normal respiratory effort, normal air movement, no retractions and clear to auscultation bilaterally Cardio regular rate, regular rhythm, S1 normal heart sound, S2 normal heart sound and no murmurs GI normal to inspection, nondistended, normoactive bowel sounds, soft to palpation, non-tender and non-distended GI Narrative: intact dressing over laparoscopic site Extremity normal capillary refill, no clubbing, cyanosis or edema and no calf tenderness General Extremity: no tenderness to palpation of joints or extremities Skin no rashes or lesions noted General Skin Exam: no breakdown Neuro oriented x3, CN's II-XII intact bilaterally, moves all extremities, no focal motor deficits, no sensory deficits noted and deep tendon reflexes 2+ bilaterally Sensorium / Orientation: awake and alert Motor Exam: strength 5/5 throughout and general weakness Psych thought process normal, cooperative and affect normal Appearance: appropriate Weight / BMI Weight Weight: 168 lb 3.403 oz Body Mass Index (BMI) 26.3 ABG / Lab / Microbiology Data 08/29/23 05:00 08/29/23 05:00 Laboratory: Laboratory Results - last 24 hr 08/28/23 15:55: Hgb 13.8, Hct 43.2 08/29/23 05:00: WBC 9.4, RBC 3.68 L, Hgb 11.0 L, Hct 34.4 L, MCV 93.5, MCH 29.9, MCHC 32.0, RDW Std Deviation 46.7 H, RDW Coeff of Tello 13.7, Plt Count 227, MPV 10.6, Immature Gran % (Auto) 0.400, Neut % (Auto) 80.5 H, Lymph % (Auto) 12.2 L, [place] % (Auto) 6.8, Eos % (Auto) 0.0, Baso % (Auto) 0.1, Absolute Neuts (auto) 7.6, Absolute Lymphs (auto) 1.15, Nucleated RBC % 0, Sodium 141, Potassium 3.6, Chloride 113 H, Carbon Dioxide 26.0, Anion Gap 2 L, BUN 9, Creatinine 1.23 H, Estim Creat Clear Calc 40.80, Est GFR (MDRD) Af Amer 54 L, Est GFR (MDRD) Non-Af 45 L, BUN/Creatinine Ratio 7.3 L, Glucose 107 H, Calcium 8.4 L, Total Bilirubin 0.60, AST 87 H, ALT 185 H, Alkaline Phosphatase 154 H, Total Protein 5.6 L, A lbumin 2.7 L, Globulin 2.9, Albumin/Globulin Ratio 0.9 Radiography Diagnostic Testing: Radiology Impression Cholangiogram 08/28/23 07:00 IMPRESSION: Fluoroscopic assistance for intraoperative cholangiogram. Please see operative report for additional information. Electronically Signed: Richard Soto MD at 18:01 EDT , D/C Instructions Discharge Diet: Low fat / Low cholesterol Discharge Activity: Return to Normal Activity Weight Bearing Status: Weight bearing as tolerated Call your doctor if you observe: Fever of 101 or Higher, Shortness of breath, Dizziness, Swelling in the ankles, Chest pain and Increased palpitations (irregular heartbeat) Meaningful Use Info Meaningful Use Meaningful Use Diagnoses (Choose all that apply): None applicable Ischemic Stroke Statin Dosing Therapy Reference: STATIN DOSE THERAPY REFERENCE: * Patients > 75 years receive moderate or high dose statin therapy. * Patients 75 years or YOUNGER should receive HIGH intensity statin dose unless contraindicated. You will be required to document reason for non-treatment if statin daily dose does not meet guidelines. HIGH DOSE STATIN THERAPY DAILY Atorvastatin > than or = to 40 mg Rosuvastatin > than or = to 20 mg Amlodipine + Atorvastatin > than or = to 2.5/40 mg Ezetimibe + Simvastatin 10/80 mg Simvastatin 80mg Discharge Plan Admission Admit Date/Time: 08/26/23 15:41 Primary Reason for Your Visit: acute choledocholithiasis Attending Provider: Hyun Rod Primary Care Provider: Lane Vazquez Consulting Providers: Priya Harden Instructions Patient Instructions: ED Gallstones with Biliary Colic Discharge Orders/Prescriptions Prescriptions: New oxycodone 5 mg Tablet 5 mg PO Q6H PRN PRN (Reason: Pain Score 6-10) 3 Days Qty: 12 0RF Continued amlodipine 5 mg tablet 5 mg PO SUTUWETHFRSA amlodipine 2.5 mg tablet 2.5 mg PO MO Referrals / Follow Up: Jj Carr MD [Med Staff - Active Staff] - Within [address] Vazquez MD [Primary Care Provider] - Within 1 Week Disposition Disposition (needs filled in before D/C Order can be placed): Home, Self Care Charges/Coding Visit Charges Inpatient E&M: 70331 Disch Hosp >30min
[2023-08-29 12:49] VITALS: BP 118/53; PULSE 76; RESP 18; TEMP 36.5; O2SAT 100
--- NOTE | 2023-08-29 17:21 | DCINST_ITS ---
Discharge Instructions Diet Discharge Diet: Low fat / Low cholesterol Activity Discharge Activity: May Not Drive (No driving while using narcotic pain medication) and May Shower (Postoperative day 1) May shower in (days): 1 Ice area for (Minutes): 20 Weight Bearing Status: Weight bearing as tolerated Lifting Restrictions: No lifting greater than 15 pounds for 2 weeks after surge ry Dressing / Incision Call your doctor if your incision/area has: Continuous Slow Oozing, Increased Pain/ Swelling, Increased Redness, Foul Smelling Discharge and Swelling at the incision site Call your doctor if you observe: Fever of 101 or Higher, Shortness of breath, Dizziness, Swelling in the ankles, Chest pain and Increased palpitations (irregular heartbeat) Remove Dressing in: 1 day (Please leave Steri-Strips intact until they fall off spontaneously or are taken off at your follow-up visit) Cleanse incision/area with: Soap & Water Follow Up Care Please Follow Up With: Jj Carr MD When: 7-10days postop Test Results: Test results from this visit will be discussed in further detail at your follow- up appointment, if applicable. Discharge Plan Admission Admit Date/Time: 08/26/23 15:41 Primary Reason for Your Visit: acute choledocholithiasis Attending Provider: Hyun Rod Primary Care Provider: Lane Vazquez Consulting Providers: Priya Harden Instructions Patient Instructions: ED Gallstones with Biliary Colic Discharge Orders/Prescriptions Prescriptions: New oxycodone 5 mg Tablet 5 mg PO Q6H PRN PRN (Reason: Pain Score 6-10) 3 Days Qty: 12 0RF Continued amlodipine 5 mg tablet 5 mg PO SUTUWETHFRSA amlodipine 2.5 mg tablet 2.5 mg PO MO Referrals / Follow Up: Jj Carr MD [Med Staff - Active Staff] - Within [address] Vazquez MD [Primary Care Provider] - Within 1 Week Disposition Disposition (needs filled in before D/C Order can be placed): Home, Self Care
--- NOTE | 2023-08-29 20:39 | PN_ITS ---
Subjective Subjective Patient seen and examined earlier today. She felt well and had no active complaints. Today is POD 1 for laparoscopic cholecystectomy. Plan was to discharge patient today, but she was still unable to void after the Mead catheter was removed, so discharge canceled. She has remained hemodynamically stable. Objective Data Objective Data Vital Signs: Vital Signs Temp Pulse Resp BP Pulse Ox O2 Del Method 97.7 F L 76 18 118/53 L 100 Room Air 08/29/23 12:49 08/29/23 12:49 08/29/23 12:49 08/29/23 12:49 08/29/23 12:49 08/29/23 12:49 Oxygen Delivery Method Room Air Weight: 168 lb 3.403 oz Body Mass Index (BMI) 26.3 Intake & Output: Intake and Output for Last 24 Hours 08/27/23 08/28/23 08/29/23 23:59 23:59 23:59 Intake Total 3018.75 / 3018.75 2379.58 / 2579.58 2617.5 / 2617.5 Output Total 210 / 210 310 / 1210 1999 / 1999 Balance 2808.75 / 2808.75 2069.58 / 1369.58 617.5 / 617.5 Lab / Micro Data 08/29/23 05:00 08/29/23 05:00 Labs: Laboratory Results - last 24 hr 08/29/23 05:00: WBC 9.4, RBC 3.68 L, Hgb 11.0 L, Hct 34.4 L, MCV 93.5, MCH 29.9, MCHC 32.0, RDW Std Deviation 46.7 H, RDW Coeff of Tello 13.7, Plt Count 227, MPV 10.6, Immature Gran % (Auto) 0.400, Neut % (Auto) 80.5 H, Lymph % (Auto) 12.2 L, [place] % (Auto) 6.8, Eos % (Auto) 0.0, Baso % (Auto) 0.1, Absolute Neuts (auto) 7.6, Absolute Lymphs (auto) 1.15, Nucleated RBC % 0, Sodium 141, Potassium 3.6, Chloride 113 H, Carbon Dioxide 26.0, Anion Gap 2 L, BUN 9, Creatinine 1.23 H, Estim Creat Clear Calc 40.80, Est GFR (MDRD) Af Amer 54 L, Est GFR (MDRD) Non-Af 45 L, BUN/Creatinine Ratio 7.3 L, Glucose 107 H, Calcium 8.4 L, Total Bilirubin 0.60, AST 87 H, ALT 185 H, Alkaline Phosphatase 154 H, Total Protein 5.6 L, A lbumin 2.7 L, Globulin 2.9, Albumin/Globulin Ratio 0.9 Physical Exam Const alert, oriented x3, no apparent distress and well nourished General Appearance: cooperative, comfortable, well kempt and well developed HEENT normocephalic, head/scalp atraumatic, hearing grossly normal bilaterally, moist oral mucous membranes and oropharynx normal Eyes PERRL, EOMs intact bilaterally and conjunctivae normal Neck no lymphadenopathy and supple Lymph Lymphatic: no lymphadenopathy noted and no lymphedema noted Resp normal respiratory effort, normal air movement, no retractions and clear to auscultation bilaterally Cardio regular rate, regular rhythm, S1 normal heart sound, S2 normal heart sound and no murmurs GI normal to inspection, nondistended, normoactive bowel sounds, soft to palpation, non-tender and non-distended GI Narrative: intact dressing over laparoscopic site Extremity normal capillary refill, no clubbing, cyanosis or edema and no calf tenderness General Extremity: no tenderness to palpation of joints or extremities Skin no rashes or lesions noted General Skin Exam: no breakdown Neuro oriented x3, CN's II-XII intact bilaterally, moves all extremities, no focal motor deficits, no sensory deficits noted and deep tendon reflexes 2+ bilaterally Sensorium / Orientation: awake and alert Motor Exam: strength 5/5 throughout and general weakness Psych thought process normal, cooperative and affect normal Appearance: appropriate Assessment & Plan Assessment/Plan (1) Elevated liver enzymes: (2) Choledocholithiasis: (3) Cholelithiasis: PLAN: Plan #Acute choledocholithiasis with cholelithiasis * abdominal pain has resolved * GI on board * had ERCP yesterday which showed main bile ducts moderate dilation with stone causing obstruction. There was choledocholithiasis which was completely removed by biliary sphincterotomy and balloon extraction, and a stent was placed in the common bile duct. The right main hepatic duct was successfully dilated. * PO tylenol, PO oxycodone and IV morphine prn for pain * had laparoscopic cholecystectomy today * liver enzymes are trending downwards. * per general surgery, to keep on clear liquid diet today. * * #Urinary retention * patient was unable to void after surgery, and had a mead catheter inserted yesterday. Mead was removed today, but patient still unable to void. * discharge therefore canceled o/a of patient being unable to void. * if it persists, will benefit from urology consult * #Hypertension: on amlodipine. IV hydralazine prn. #Elevated liver enzymes: liver enzymes are trending downwards. will continue monitoring. DVT prophylaxis: Lovenox Charges/Coding Visit Charges Inpatient E&M: 89534 Subs Hosp L2
[2023-08-29 21:52] VITALS: BP 152/75; PULSE 85; RESP 16; TEMP 36.3; O2SAT 98
[2023-08-29] MEDS: Tamsulosin HCl 0.4 MG Capsule PO (23:03)
[2023-08-30 04:50] VITALS: BP 152/84; PULSE 84; RESP 16; TEMP 36.4; O2SAT 99
[2023-08-30 06:04] LABS: Absolute Lymphocyte Count 1.78 X10^3/uL (0.83-4.51); Absolute Neutrophil Count 4.1 X10^3/uL (2.0-7.7); Basophil# 0.02 X10^3/uL; Basophil% 0.3 % (0-1); Hematocrit 33.3 % (37-47); Hemoglobin 10.6 g/dL (12.0-15.0); Lymphocyte # 1.78 X10^3/ul (0.83-4.51); Lymphocyte % 27.9 % (19-41); Mean Corp Hgb Conc 31.8 g/dL (32-36); Mean Corpuscular Hgb 29.8 pg (27.0-32.0); Mean Corpuscular Volume 93.5 fL (81-99); Mean Platelet Vol. 10.5 fl (6.2-12.0); Monocyte# 0.48 X10^3/uL; Monocyte% 7.5 % (0-10); NRBC Flagged by Analyzer 0 % (0-5); Neutrophil # 4.07 X10^3/uL (2.7-7.7); Platelet Count 204 K/mm3 (150-450); RBC Distribution Width SD 47.3 fl (35.1-43.9); Red Blood Count 3.56 M/mm3 (4.2-5.4); White Blood Count 6.4 K/mm3 (4.4-11.0)
[2023-08-30 06:20] LABS: ALB/GLOB Ratio 0.9 RATIO (0.9-2.4); AST(SGOT) 47 U/L (15-37); Alanine Aminotransfer ALT/SGPT 134 U/L (13-56); Albumin, Serum 2.6 g/dL (3.2-5.0); Alkaline Phosphatase 136 U/L (45-117); Anion Gap 4 (5-15); BUN 11 mg/dL (7-18); BUN/Creat Ratio 9.6 RATIO (10-20); Calcium,Total 8.6 mg/dL (8.5-10.1); Chloride 114 mmol/L (98-107); Creatinine, Serum 1.15 mg/dL (0.55-1.02); EST Glomerular Filtration Rate 49 mL/min (>60); Est Glom Filt Rate - Afr Amer 59 mL/min (>60); Estimated Creatinine Clearance 43.64 ml/min; Globulin 2.9 g/dL (2.2-4.2); Glucose 97 mg/dL (74-106); Potassium 3.3 mmol/L (3.5-5.1); Protein, Total 5.5 g/dL (6.4-8.2); Sodium Level 145 mmol/L (136-145)
--- NOTE | 2023-08-30 07:17 | PN.SURG_ITS ---
Subjective Subjective Patient seen and examined during AM rounds. She is found sitting out of bed in chair. She confirms that she is now voiding spontaneously and regularly but it took until approximately 11 PM for her to do so. She denies any significant abdominal discomfort and reports tolerance of a diet. She has not had a bowel movement yet postop but does confirm passage of flatus. Objective Data Objective Data Vital Signs: Vital Signs Temp Pulse Resp BP Pulse Ox O2 Del Method 97.5 F L 84 16 152/84 H 99 Room Air 08/30/23 04:50 08/30/23 04:50 08/30/23 04:50 08/30/23 04:50 08/30/23 04:50 08/30/23 04:50 Oxygen Delivery Method Room Air Weight: 168 lb 3.403 oz Body Mass Index (BMI) 26.3 Intake & Output: Intake and Output for Last 24 Hours 08/28/23 08/29/23 08/30/23 23:59 23:59 23:59 Intake Total 2379.58 / 2579.58 3417.5 / 3417.5 200 / 200 Output Total 310 / 1210 2400 / 2400 650 / 650 Balance 2069.58 / 1369.58 1017.5 / 1017.5 -450 / -450 Lab / Micro Data 08/30/23 05:50 08/30/23 05:50 Labs: Laboratory Results - last 24 hr 08/30/23 05:50: WBC 6.4, RBC 3.56 L, Hgb 10.6 L, Hct 33.3 L, MCV 93.5, MCH 29.8, MCHC 31.8 L, RDW Std Deviation 47.3 H, RDW Coeff of Tello 14.0, Plt Count 204, MPV 10.5, Immature Gran % (Auto) 0.300, Neut % (Auto) 64.0, Lymph % (Auto) 27.9, [place] % (Auto) 7.5, Eos % (Auto) 0.0, Baso % (Auto) 0.3, Absolute Neuts (auto) 4.1, Absolute Lymphs (auto) 1.78, Nucleated RBC % 0, Sodium 145, Potassium 3.3 L , Chloride 114 H, Carbon Dioxide 27.0, Anion Gap 4 L, BUN 11, Creatinine 1.15 H, Estim Creat Clear Calc 43.64, Est GFR (MDRD) Af Amer 59 L, Est GFR (MDRD) Non-Af 49 L, BUN/Creatinine Ratio 9.6 L, Glucose 97, Calcium 8.6, Total Bilirubin 0.30, AST 47 H, ALT 134 H, Alkaline Phosphatase 136 H, Total Protein 5.5 L, Albumin 2.6 L, Globulin 2.9, Albumin/Globulin Ratio 0.9 Physical Exam Const oriented x3 and no apparent distress Resp normal respiratory effort GI GI Narrative: Nondistended, operative dressings remain intact but once these are removed patient's underlying Steri-Strips remain in place and there is no signs of drainage from her wounds. Patient's abdomen is soft and nontender to palpation x 4 quadrants Assessment & Plan Assessment/Plan (1) Elevated liver enzymes: PLAN: Improving (2) Choledocholithiasis: PLAN: Further improved status post ERCP and now postoperative day 2 from cholecystectomy with intraoperative cholangiogram 08/28/2023. CMP is nearly normalized. Patient has remained hemodynamically stable with overall stable hemoglobins. Her wounds and exam are appropriate. Postoperative urinary retention appears to be resolving as well after a prolonged time to spontaneous void after discontinuation of her [place] catheter yesterday held up for discharge. There is plan for outpatient follow-up with urology already per hospitalist team. If patient discharges today request outpatient follow-up with me in 7 to 10 days. (3) Cholelithiasis: PLAN: Postop day 2 from lap diane with [facility] Charges/Coding Visit Charges Inpatient E&M: 65226 Subs Hosp L2
[2023-08-30 08:18] VITALS: BP 119/58; PULSE 79; RESP 18; TEMP 36.6; O2SAT 99
[2023-08-30] MEDS: Enoxaparin 40 MG/0.4 ML Syringe SC (08:30)
[2023-08-30] MEDS: amLODIPine 2.5 MG Tablet PO (08:30)
[2023-08-30] MEDS: Senna/Docusate Sodium 1 Tablet PO (08:30)
[2023-08-30] MEDS: Potassium Chloride Oral Tablet 20 MEQ 40 MEQ PO (08:30)
--- NOTE | 2023-08-30 10:37 | PCM.DC.SUM ---
Providers Date of Admission: 08/26/23 Date of Discharge: 08/30/23 Primary Care Physician: Dr. Lane Vazquez MD Consultations 08/26/23 17:05 Consult: Gastroenterology Routine Consulting Provider: [facility] Reason for Consult: Choledocholithiasis EMERGENT Consult: Yes Notified: Yes Date Notified: 08/26/23 Time Notified: 15:45 Method of Notification: ED Physician Initiated Reason For Visit: CHOLEDOCHOLITHIASIS Diagnosis Discharge Diagnosis (1) Elevated liver enzymes: Status: Resolved Code(s): R74.8 - Abnormal levels of other serum enzymes (2) Choledocholithiasis: Status: Resolved Code(s): K80.50 - Calculus of bile duct without cholangitis or cholecystitis without obstruction (3) Cholelithiasis: Status: Resolved Code(s): K80.20 - Calculus of gallbladder without cholecystitis without obstruction Medications at Discharge Home Medications amlodipine 5 mg tablet 5 mg PO SUTUWETHFRSA BLOOD PRESSURE 10/02/20 amlodipine 2.5 mg tablet 2.5 mg PO MO BLOOD PRESSURE 08/26/23 oxycodone 5 mg tablet 5 mg PO Q6H PRN PRN Pain Score 6-10 3 days #12 tabs 08/29/23 sennosides 8.6 mg-docusate sodium 50 mg tablet (Stool Softener-Stimulant Laxative) 1 tab PO BID #0 tabs 08/30/23 tamsulosin 0.4 mg capsule 0.4 mg PO DAILY@1730 #7 caps 08/30/23 Hospital Course Operations cholecystecomy and ERCP Procedures EKG and - (Chest x-ray/gallbladder ultrasound) Summary of Care Provided Minutes Spent on Discharge: 37 Hospital Course: Mrs. Morrell is a 77-year-old -[place] female who presents emergency department at [facility] on 08/26/2023 with a chief complaint of severe epigastric pain that started at 6 AM on the morning of presentation. The pain was not radiating and compression like and she had not had similar pain previously. CT of the abdomen and pelvis was done and showed no acute pathology and she was discharged home however the pain persisted and she came back to the emergency department later in the afternoon and she was found to have elevated AST/ALP/ALT. Bilirubin was normal at that time. High-sensitivity troponin was unremarkable. Vital signs were unremarkable. A gallbladder ultrasound was performed and showed evidence of choledocholithiasis and she was admitted for management for her acute choledocholithiasis and cholecystitis. Gastroenterology was consulted and an ERCP was performed which showed main bile ducts having moderate dilation and stone causing obstruction choledocholithiasis was removed with complete biliary sphincterotomy and balloon extraction with temporary stent placement in the common bile duct and the right main hepatic duct was dilated. Her liver enzymes trended downward and general surgery was consulted at which time they recommended laparoscopic cholecystectomy. This was done on 08/28/2023. Her postoperative course was complicated by urinary retention which subsequently resolved. Postvoid residuals were performed and she was still having some elevated postvoid residuals so I discussed the case with urology and they recommended outpatient follow-up for possible urodynamic studies. She was able to be discharged home on 08/30/2023 with a prescription for as needed oxycodone and Flomax for the next week until she can follow-up with urology. I did give her information to Dr. Mejia and she indicated her office would call to set up an appointment however I did inform the patient to call the office on Wednesday if she had not heard from the office by that point in time. She is also to follow-up with general surgery within the next week and I have asked that she follow-up with gastroenterology in the next 3 months. Prescriptions were sent to local pharmacy and she was asked to follow-up with her primary care physician as needed. Discharge diagnoses: Acute choledocholithiasis Cholelithiasis Transaminitis Urinary retention Hypertension Glaucoma Physical Exam Const alert, oriented x3, no apparent distress, average body habitus, no limitations, healthy appearing and well nourished Constitutional Narrative: Pleasant, -[place] female, sitting up in a chair at the bedside, appears comfortable and nontoxic General Appearance: cooperative, comfortable, well kempt and well developed Orientation / Consciousness: awake, oriented to person, oriented to place and oriented to time Exam Limitations: no limitations HEENT normocephalic, head/scalp atraumatic, hearing grossly normal bilaterally and moist oral mucous membranes Eyes PERRL, EOMs intact bilaterally and conjunctivae normal Eyes Narrative: No scleral icterus Neck no lymphadenopathy and supple Neck Narrative: Trachea midline, no thyroid enlargement Resp normal respiratory effort, no retractions, no use of accessory muscles and clear to auscultation bilaterally Auscultation: Negative for rales, rhonchi or wheezes Cardio regular rate, regular rhythm, S1 normal heart sound, S2 normal heart sound, no murmurs, no rub, no gallops and no clicks GI normal to inspection, nondistended, normoactive bowel sounds and soft to palpation GI Narrative: Very mild diffuse tenderness, postoperative laparoscopic incisions are clean dry and intact without any signs of infection or drainage Extremity no clubbing, cyanosis or edema Extremity Narrative: Pedal pulses are 2+ Skin no rashes or lesions noted, skin turgor normal and no jaundice Neuro oriented x3, moves all extremities and no focal motor deficits Speech: speech normal Psych affect normal Psych Narrative: Very pleasant Weight / BMI Weight Weight: 76.3 kg Body Mass Index (BMI) 26.3 ABG / Lab / Microbiology Data 08/30/23 05:50 08/30/23 05:50 Laboratory: Laboratory Results - last 24 hr 08/30/23 05:50: WBC 6.4, RBC 3.56 L, Hgb 10.6 L, Hct 33.3 L, MCV 93.5, MCH 29.8, MCHC 31.8 L, RDW Std Deviation 47.3 H, RDW Coeff of Tello 14.0, Plt Count 204, MPV 10.5, Immature Gran % (Auto) 0.300, Neut % (Auto) 64.0, Lymph % (Auto) 27.9, [place] % (Auto) 7.5, Eos % (Auto) 0.0, Baso % (Auto) 0.3, Absolute Neuts (auto) 4.1, Absolute Lymphs (auto) 1.78, Nucleated RBC % 0, Sodium 145, Potassium 3.3 L, Chloride 114 H, Carbon Dioxide 27.0, Anion Gap 4 L, BUN 11, Creatinine 1.15 H, Estim Creat Clear Calc 43.64, Est GFR (MDRD) Af Amer 59 L, Est GFR (MDRD) Non-Af 49 L, BUN/Creatinine Ratio 9.6 L, Glucose 97, Calcium 8.6, Total Bilirubin 0.30, AST 47 H, ALT 134 H, Alkaline Phosphatase 136 H, Total Protein 5.5 L, Albumin 2.6 L, Globulin 2.9, Albumin/Globulin Ratio 0.9 D/C Instructions Discharge Diet: Low fat / Low cholesterol May shower in (days): 1 Ice area for (Minutes): 20 Weight Bearing Status: Weight bearing as tolerated Call your doctor if your incision/area has: Continuous Slow Oozing, Increased Pain/ Swelling, Increased Redness, Foul Smelling Discharge and Swelling at the incision site Call your doctor if you observe: Fever of 101 or Higher, Shortness of breath, Dizziness, Swelling in the ankles, Chest pain and Increased palpitations (irregular heartbeat) Cleanse incision/area with: Soap & Water Please Follow Up With: Jj Carr MD When: 7-10days postop Meaningful Use Info Meaningful Use Meaningful Use Diagnoses (Choose all that apply): None applicable Ischemic Stroke Statin Dosing Therapy Reference: STATIN DOSE THERAPY REFERENCE: * Patients > 75 years receive moderate or high dose statin therapy. * Patients 75 years or YOUNGER should receive HIGH intensity statin dose unless contraindicated. You will be required to document reason for non-treatment if statin daily dose does not meet guidelines. HIGH DOSE STATIN THERAPY DAILY Atorvastatin > than or = to 40 mg Rosuvastatin > than or = to 20 mg Amlodipine + Atorvastatin > than or = to 2.5/40 mg Ezetimibe + Simvastatin 10/80 mg Simvastatin 80mg Discharge Plan Admission Admit Date/Time: 08/26/23 15:41 Primary Reason for Your Visit: acute choledocholithiasis Attending Provider: Ivelisse Gonzalez Primary Care Provider: Lane Vazquez Consulting Providers: Priya Harden; Hyun Rod Instructions Patient Instructions: ED Gallstones with Biliary Colic Discharge Orders/Prescriptions Prescriptions: New oxycodone 5 mg Tablet 5 mg PO Q6H PRN PRN (Reason: Pain Score 6-10) 3 Days Qty: 12 0RF sennosides-docusate sodium [Stool Softener-Stimulant Laxat] 8.6-50 mg Tablet 1 tab PO BID Qty: 0 0RF Rx Instructions: Buy OTC and take while on pain medications tamsulosin 0.4 mg Capsule 0.4 mg PO DAILY@1730 Qty: 7 0RF Continued amlodipine 5 mg tablet 5 mg PO SUTUWETHFRSA amlodipine 2.5 mg tablet 2.5 mg PO MO Referrals / Follow Up: Gypsy Mejia MD [Med Staff - Active Staff] - In 1 Week (call for appt if you do not hear from the office by Wednesday) Jj Carr MD [Med Staff - Active Staff] - Within [address] Vazquez MD [Primary Care Provider] - Within 1 Week Joe Mauro DO [Med Staff - Active Staff] - Within 3 Months (Please call the office to set up an appointment to be seen within the next 3 months for possible biliary stent removal) Disposition Disposition (needs filled in before D/C Order can be placed): Home, Self Care Charges/Coding Visit Charges Inpatient E&M: 32007 Disch Hosp >30min
--- NOTE | 2023-08-30 10:48 | CASEMGMT ---
Into pt room, sitting up in chair. States she is ready to go home and declines any needs at this time. States dtr will pick her up and take her home.
--- NOTE | 2023-08-30 11:19 | PHA.DC.MC.R ---
Pharmacy [facility] Pharm[facility] Service has performed discharge medication reconciliation and counseling for this patient. 1. OXYCODONE 5MG PO Q6H PRN PAIN 2. SENNA/DOCUSATE 1T PO BID 3. TAMSULOSIN 0.4MG PO DAILY The patient's discharge medication list was reviewed for discrepancies and discrepancies were resolved. The patient was counseled on the following discharge medications and changes in medications for homegoing were reviewed. The Reason for Use, instructions for use, and potential side effects were reviewed for all new medications. The patient's questions regarding all of their medications were answered. The patient was able to verbally demonstrate an understanding of their discharge medications. Patient counseled by international student advisorJp. Medications at Discharge Home Medications amlodipine 5 mg tablet 5 mg PO SUTUWETHFRSA BLOOD PRESSURE 10/02/20 amlodipine 2.5 mg tablet 2.5 mg PO MO BLOOD PRESSURE 08/26/23 oxycodone 5 mg tablet 5 mg PO Q6H PRN PRN Pain Score 6-10 3 days #12 tabs 08/29/23 sennosides 8.6 mg-docusate sodium 50 mg tablet (Stool Softener-Stimulant Laxative) 1 tab PO BID #0 tabs 08/30/23 tamsulosin 0.4 mg capsule 0.4 mg PO DAILY@0660 #7 caps 08/30/23
[2023-08-30 13:41] VITALS: BP 110/56; PULSE 88; RESP 18; TEMP 36.4; O2SAT 94
== END 2023-08-30 14:03 | disposition home or self-care (01) | DRG 419 ==
LOC: ED 15:09 → MS3 16:32
PROVIDERS: Internal Medicine Gastroenterology; Student in an Organized Health Care Education/Training Program; Surgery; Admitting Provider Internal Medicine; Emergency Provider Emergency Medicine; PCP Internal Medicine; Visit Provider Internal Medicine
PROC: (CPT 43260; principal; 2023-08-27 11:10)
DX: K80.65 Calculus of gallbladder and bile duct with chronic cholecystitis with obstruction (principal); E78.5 Hyperlipidemia, unspecified; K76.89 Other specified diseases of liver; I10 Essential (primary) hypertension; H40.9 Unspecified glaucoma; R33.9 Retention of urine, unspecified; Z79.899 Other long term (current) drug therapy
CPT/HCPCS: 36415; 71045; 74300; 74330; 76000; 76705; 80048; 80053; 80076; 82248; 83690; 83735; 84100; 84484; 85014; 85018; 85025; 85610; 88304; 88307; 93005; 97161; 97166; 97802; 99285; J7030; J7050; A4216; J2405

== ENCOUNTER 2023-11-04 13:45 | Emergency (ER) | payer MEDICARE, SELFPAY ==
[2023-11-04 13:46] VITALS: BP 173/98; PULSE 78; RESP 18; TEMP 36.2; O2SAT 100; BMI 25.5
--- NOTE | 2023-11-04 14:55 | CT_ITS ---
STUDY: CT BRAIN WITHOUT CONTRAST REASON FOR EXAM: Female, 78 years old. Head trauma RADIATION DOSAGE (If Supplied By Facility): CTDIvol = ( 47.06 ) mGy, DLP = ( 855.03 ) mGycm TECHNIQUE: Transaxial CT imaging of the brain was performed without administration of intravenous contrast material. Individualized dose optimization techniques were used for this CT. COMPARISON: Comparison is made with prior study dated August 15, 2018. FINDINGS: Small scalp hematoma overlying the right frontal bone. Normal calvarium. There is mild cerebral atrophy with widening of the extra-axial spaces and ventricular dilatation. There are areas of decreased attenuation within the white matter tracts of the supratentorial brain, consistent with microvascular disease changes. Normal basal ganglia and thalami. Normal brainstem. Normal cerebellum. There is no intracranial hemorrhage. There are no findings of an acute ischemic infarction. Normal visualized paranasal sinuses. CT/Brain/Head without Contrast IMPRESSION: Chronic involutional changes of the brain. Small scalp hematoma overlying the right frontal bone. Electronically Signed: Gaurav Foster MD at 15:28 EDT ,
--- NOTE | 2023-11-04 14:55 | EX.ED.GENINJ ---
HPI History of Present Illness Chief Complaint: Head Injury Detail of Chief Complaint: Tripped and fell hit her right forehead. No LOC. Informant: patient Onset/Context/Timing Onset: Today and Hours Mechanism/Context: Blunt Injury and Fall Maximum Severity: Mild Associated Symptoms Associated Symptoms: Negative for Parasthesias, Weakness, Loss of function, Inability to ambulate, Loss of consciousness or Amnesia Narrative Narrative: 78-year-old female history of hypertension. Was walking downtown tripped and fell on uneven sidewalk pavement and when she fell she hit her right forehead. No LOC. No vomiting. She is not on any blood thinners. She denies other injuries. She denies any neck pain. No vomiting. Said she felt fine prior to falling today. Prior similar symptoms: No Recent Illness/Hospitalization: No PFSH PFSH Medical History HLD (hyperlipidemia) HTN (hypertension) Glaucoma Home Medications ?Medication ?Instructions ?Recorded ?Last Taken ?Type amlodipine 5 mg tablet 5 mg PO SUTUWETHFRSA BLOOD PRESSURE 10/02/20 08/26/23 History amlodipine 2.5 mg tablet 2.5 mg PO MO BLOOD PRESSURE 08/26/23 08/23/23 History Allergy/AdvReac Type Severity Reaction Status Date / Time No Known Allergies Allergy Verified 11/04/23 13:45 Surgical History S/P laparoscopic cholecystectomy Social History Smoking Status: Never smoker substance use type: does not use ROS ROS ED ROS Narrative Denies recent illness. Review of Systems ROS Unobtainable: Denies due to encephalopathy Constitutional Constitutional ED: Denies chills or fever(s) Eyes Eyes: Denies blurry vision ENT ENT ED: Denies ear pain Cardiovascular Cardiovascular: Denies chest pain Respiratory/Chest Respiratory/Chest: Denies cough or dyspnea Gastrointestinal Gastrointestinal: Denies abdominal pain Genitourinary Genitourinary ED: Denies dysuria or hematuria Musculoskeletal Musculoskeletal: Denies arthralgias Integumentary Denies abscess Neurologic Neurologic: Denies headache(s) Psychiatric Psychiatric: Denies anxiety or depression Endocrine Endocrinology: Denies cold intolerance Hematologic/Lymphatic Hematologic/Lymphatic: Denies easy bleeding, easy bruising or lymphadenopathy Allergic/Immunologic Allergic/Immunologic ED: Denies mouth swelling, tongue swelling, urticaria or other EXAM Physical Exam Narrative Exam Narrative: Well-appearing 78-year-old female. Vital signs are stable afebrile. H EENT exam pupils round reactive light. She does have a moderate contusion to right forehead no laceration. There is no laceration or bleeding. Dentition intact. Scalp nontender. C-spine and neck completely nontender. Normal range of motion. Back and spine nontender. Lungs clear. Heart regular rhythm rate about 75 no murmur. Chest and ribs nontender. Abdomen soft nontender. She is moving all 4 extremities. Normal gas engineer strength. Normal dorsi plantarflexion. Normal flexion extension of both hips and knees. No shortening or rotation. No tenderness or deformity. No significant abrasions or lacerations. She has normal gas engineer strength and range of motion of upper extremities. Neurologically she is awake and alert. Answering questions following commands. There is family present in room. Const Vital Signs: 11/04/23 13:46 11/04/23 13:56 11/04/23 15:52 Temperature 97.2 F L Temperature Source Temporal Pulse Rate 78 82 Respiratory Rate 18 12 Respiratory Effort Normal Non-Labored Respiratory Depth Normal Respiratory Pattern Normal Blood Pressure 173/98 H 168/75 H Blood Pressure Mean 123 106 Pulse Ox 100 98 Oxygen Delivery Method Room Air Room Air Room Air Positive well nourished and well developed; Negative for cachectic, contractures or unkempt General Appearance ED: well developed and NAD; Negative for unkempt, cachectic or contractures Nutritional Appearance: Negative for cachectic HEENT HEENT Narrative: Right forehead contusion. Small hematoma. No laceration. trauma and tenderness Eyes PERRL and EOMs intact bilaterally Neck full ROM General: Negative for tenderness Chest Wall inspection of chest normal and palpation of chest normal Resp normal respiratory effort and clear to auscultation bilaterally Auscultation: Negative for rales, rhonchi or wheezes Cardio regular rhythm, S1 normal heart sound, S2 normal heart sound and no murmurs Palpation: Negative for palpable S3 or palpable S4 Rate: regular rate; Negative for bradycardia or tachycardic Rhythm: Negative for abnormal rhythm GI normal to inspection, nondistended, normoactive bowel sounds, non-tender, non-distended and no masses Inspection: Negative for abdominal distention Palpation: soft; Negative for tender or rebound tenderness present Back/Spine normal to inspection and no thoracic nor lumbar tenderness General Back: Negative for CVA tenderness Thoracic Spine / Upper Back: Negative for thoracic spinal tenderness Extremity normal to inspection and full ROM Extremity Narrative: Nontender. No deformity. Normal range of motion. Normal strength. No lacerations. General Extremety ED: Negative for edema or tenderness General Extremity: Negative for edema Neuro oriented x3, CN's II-XII intact bilaterally, moves all extremities and no focal motor deficits [place] Coma Scale: document GCS findings Spontaneous Obeys Commands Oriented 15 Sensorium / Orientation: alert, oriented to person, oriented to place and oriented to time; Negative for orientation impaired, lethargic or stuporous Motor Exam: strength 5/5 throughout Psych mental status grossly normal and thought process normal Appearance: Negative for unkempt Attitude: No agitated Mood & Affect: Negative for depressed, anxious or tearful Skin no rashes or lesions noted, no wounds and no jaundice General Skin Exam: Negative for other Rashes: No rashes noted Trauma: Negative for abrasion Wounds: Negative for wounds noted MDM MDM MDM Narrative Medical decision making narrative: 78-year-old female tripped and fell on uneven pavement striking her right forehead. Other than the contusion of 400 exam is benign. She is awake and alert. I am going to get a CAT scan of the head so okay should be discharged home with a close head injury. She was offered but did not want a thing for pain. She is not having any nausea. Repeat exam unchanged. I went over the CAT scan results with patient and family. She will be discharged home with close head injury instructions. Tylenol for pain. Ice to her forehead. Return if intractable vomiting, severe headache or not acting appropriately. History & Record Review Discussion w/independent historian: Patient and Family Additional record(s) reviewed:: Prior inpatient record, Prior outpatient record, Prior ED visit and Prior labs Radiography Diagnostic Testing: Clinical Impression(s) from Imaging Studies Brain CT 11/04/23 14:55 IMPRESSION: Chronic involutional changes of the brain. Small scalp hematoma overlying the right frontal bone. Electronically Signed: Gaurav Foster MD at 15:28 EDT , Discharge Plan Triage Chief Complaint: Head Injury ED Provider: Rafael Alarcon Dx/Rx/DC Orders Clinical Impression: Fall, Closed head injury, Traumatic hematoma of forehead Instructions: ED Head Injury (Adult) Prescriptions: No Action amlodipine 5 mg tablet 5 mg PO SUTUWETHFRSA amlodipine 2.5 mg tablet 2.5 mg PO MO Primary Care Provider: Lane Vazquez Referrals: Lane Vazquez MD [Primary Care Provider] - As Needed Activity Restrictions/Additional Instructions: Ice to your forehead. Tylenol for pain. Return if severe headache, intractable vomiting or not acting right. Print Language: Vietnamese Disposition Disposition: Home, Self Care
[2023-11-04 15:52] VITALS: BP 168/75; PULSE 82; RESP 12; O2SAT 98
[2023-11-04 16:38] VITALS: BP 159/82; PULSE 81; RESP 12; TEMP 36.6; O2SAT 98
== END 2023-11-04 16:39 | disposition home or self-care (01) ==
PROVIDERS: Emergency Provider Emergency Medicine; PCP Internal Medicine; Referring Provider Emergency Medicine; Visit Provider Emergency Medicine
DX: S00.83XA Contusion of other part of head, initial encounter (principal); W10.1XXA Fall (on)(from) sidewalk curb, initial encounter; I10 Essential (primary) hypertension; E78.5 Hyperlipidemia, unspecified; Y93.01 Activity, walking, marching and hiking; Y92.89 Other specified places as the place of occurrence of the external cause; Z79.899 Other long term (current) drug therapy; Z90.49 Acquired absence of other specified parts of digestive tract
CPT/HCPCS: 70450; 99282

== ENCOUNTER 2024-05-03 08:35 | Observation (INO) | payer MEDICARE, SELFPAY ==
[2024-05-03] VITALS (10 sets, daily range): BP systolic 123–180; BP diastolic 68–100; PULSE 71–100; RESP 16–18; TEMP 36.5–36.7; O2SAT 96–100; BMI 23.0; BMI 20.9
--- NOTE | 2024-05-03 08:48 | ED.RN ---
RECENT WEIGHT LOSS AND SEEING HER PCP FOR THIS. PT HAS HAD SYNCOPAL EPISODES PRIOR TO THIS VISIT. PT STATES A MONTH AGO SHE DID AT THE SAME STORE SHE DID TODAY. PT LIVES AT HOME WITH HER DAUGHTER AND DENIES ANY ANTICOAGULANTS.
--- NOTE | 2024-05-03 08:59 | CT_ITS ---
PROCEDURE: SPINE CERVICAL WITHOUT CONTRAS REASON FOR EXAM: Fall due to syncopal episode. TECHNIQUE: Cervical spine CT without contrast. Multiple axial tomographic images were obtained without intravenous contrast administration. Coronal and sagittal reconstruction was obtained as well. COMPARISON: None. FINDINGS: Alignment: Normal loss of the normal cervical lordosis most likely secondary to muscle spasm. C2-C3 level: Mild degree of disc space narrowing. The facet joint osteoarthritis worse on the right side. C3-C4 level: Moderate degree of disc space narrowing. Facet joint osteoarthritis. Uncovertebral arthrosis with bilateral neural foraminal stenosis worse on the right side. C4-C5 level: Moderate degree of disc space narrowing. Uncovertebral arthrosis and facet joint osteoarthritis. Bilateral neural foraminal stenosis. C5-C6 level: Disc space narrowing. Facet joint osteoarthritis. No significant stenosis seen. Vertebrae: No acute fracture Soft Tissues: No large prevertebral hematoma CT/Spine Cervical without Contras IMPRESSION: NO ACUTE CERVICAL FRACTURE. DEGENERATIVE CHANGES. One or more dose reduction techniques were used (e.g., Automated exposure contr ol, adjustment of the mA and/or kV according to patient size, use of iterative reconstruction technique). Reading Location: [place] [id number]
--- NOTE | 2024-05-03 08:59 | CT_ITS ---
EXAM: CT BRAIN/HEAD WITHOUT CONTRAST CLINICAL HISTORY: SYNCOPAL EPISODE. PATIENT FELL AND HIT HEAD ON CABINET. COMPARISON: CT brain dated 8 05/04/2023. TECHNIQUE: Contiguous axial scans of 3.75 mm slice thicknesses with sagittal and coronal reconstruction images. One or more dose reduction techniques were utilized (e.g., automated exposure control, adjustment of mA and/or kv according to patient size, use of iterative reconstruction technique). FINDINGS: No intraparenchymal hemorrhage. No abnormal areas of encephalomalacia. No mass effect or midline shift. Areas of diffuse decreased attenuation in the central white matter and subcortical regions. Ventricles and cisterns are appropriate size for patient's age. Stable mild senescent change. No extra-axial fluid collections. Cerebellum and posterior fossa unremarkable. Paranasal sinuses normal. Mastoid air cells are normal. Calvarium unremarkable. Small scalp soft tissue hematoma, left occipital region. CT/Brain/Head without Contrast IMPRESSION: 1. Small left occipital scalp hematoma. 2. Chronic microvascular ischemic changes. 3. Mild cerebral cortical atrophy. 4. No acute intracranial abnormalities are demonstrated. Reading Location: [facility]
[2024-05-03] MEDS: Acetaminophen 325 MG Tablet 650 MG PO (09:05)
--- NOTE | 2024-05-03 09:05 | EX.ED.DYSGE1 ---
HPI History of Present Illness Chief Complaint: Syncope Informant: patient Narrative Narrative: Patient is a 78-year-old female with history of hypertension hyperlipidemia presenting after syncopal episode. Patient states that she did walk to the [place] this morning. She notes he is more tired than normal because of the cold. She does normally make this walk. She was inside and then vaccine she knows she was waking up on the ground. She hit the back of her head. Per EMS report patient has syncopal episode and hit her head on the shelf. She denies feeling any lightheadedness, vision changes or prodromal symptoms. States she feels fine now except for the back of her head hurts. She does not take any blood thinners and is not on any aspirin or antiplatelet medication. She states that she has had syncopal episodes before. She does report increased stress lately stating that she has been staying with her daughter but needs to move out and has been looking for other living arrangements. She is most actually go somewhere today. In addition she found a lump on her left breast that she saw her primary care doctor for last week. She was referred for mammography. Does have a history of cancer in the family as well as breast cancer and is worried about that. She denies any history of DVT or PE. Denies any chest pain, shortness of breath, leg swelling, lightheadedness, dizziness or recent cold/flu symptoms. No other complaints or concerns per at the time. Patient notes she has not eaten anything or drink anything today and did not take her blood pressure medication this morning yet. [facility] Medical History HLD (hyperlipidemia) HTN (hypertension) Glaucoma Home Medications ?Medication ?Instructions ?Recorded ?Last Taken ?Type amlodipine 5 mg tablet 5 mg PO SUTUWETHFRSA BLOOD PRESSURE 10/02/20 08/26/23 History amlodipine 2.5 mg tablet 2.5 mg PO MO BLOOD PRESSURE 08/26/23 05/02/24 History Allergy/AdvReac Type Severity Reaction Status Date / Time No Known Allergies Allergy Verified 05/03/24 08:50 Surgical History S/P laparoscopic cholecystectomy Social History Smoking Status: Never smoker substance use type: does not use ROS ROS ED Constitutional Constitutional ED: Denies chills or fever(s) Eyes Eyes: Denies blurry vision or change in vision ENT ENT ED: Denies sore throat Cardiovascular Cardiovascular: Denies chest pain or palpitations Respiratory/Chest Respiratory/Chest: Reports other Details: Lump on left breast ; Denies cough or dyspnea Gastrointestinal Gastrointestinal: Denies abdominal pain, nausea or vomiting Musculoskeletal Musculoskeletal: Reports neck pain; Denies arthralgias or myalgias Integumentary Denies Abrasions or rash Neurologic Neurologic: Reports headache(s); Denies paresthesias or weakness Psychiatric Psychiatric: Denies anxiety or depression Hematologic/Lymphatic Hematologic/Lymphatic: Denies easy bleeding or easy bruising EXAM Physical Exam Const Vital Signs: 05/03/24 08:36 05/03/24 08:47 05/03/24 11:03 Temperature 97.7 F L Temperature Source Oral Pulse Rate 96 84 Pulse Rate [Lying] Pulse Rate [Sitting (for 1 minute prior to obtaining)] Pulse Rate [Standing (for 1 minute prior to obtaining)] Respiratory Rate 16 16 Respiratory Effort Normal Respiratory Depth Respiratory Pattern Normal Blood Pressure 152/84 H 180/81 H Blood Pressure [Lying] Blood Pressure [Sitting (for 1 minute prior to obtaining)] Blood Pressure [Standing (for 1 minute prior to obtaining)] Blood Pressure Mean 106 114 Blood Pressure Mean [Lying] Blood Pressure Mean [Sitting (for 1 minute prior to obtaining)] Blood Pressure Mean [Standing (for 1 minute prior to obtaining)] Pulse Ox 100 100 Oxygen Delivery Method Room Air Room Air 05/03/24 11:03 05/03/24 11:07 05/03/24 12:32 Temperature Temperature Source Pulse Rate 83 Pulse Rate [Lying] 84 Pulse Rate [Sitting (for 1 minute prior to obtaining)] 89 Pulse Rate [Standing (for 1 minute prior to obtaining)] 84 Respiratory Rate Respiratory Effort Normal Respiratory Depth Normal Respiratory Pattern Normal Blood Pressure 149/74 H Blood Pressure [Lying] 172/68 H Blood Pressure [Sitting (for 1 minute prior to obtaining)] 165/73 H Blood Pressure [Standing (for 1 minute prior to obtaining)] 149/80 H Blood Pressure Mean 99 Blood Pressure Mean [Lying] 102 Blood Pressure Mean [Sitting (for 1 minute prior to obtaining)] 103 Blood Pressure Mean [Standing (for 1 minute prior to obtaining)] 103 Pulse Ox 100 Oxygen Delivery Method Room Air 05/03/24 12:33 Temperature Temperature Source Pulse Rate Pulse Rate [Lying] 100 Pulse Rate [Sitting (for 1 minute prior to obtaining)] 81 Pulse Rate [Standing (for 1 minute prior to obtaining)] 82 Respiratory Rate Respiratory Effort Respiratory Depth Respiratory Pattern Blood Pressure Blood Pressure [Lying] 153/83 H Blood Pressure [Sitting (for 1 minute prior to obtaining)] 176/87 H Blood Pressure [Standing (for 1 minute prior to obtaining)] 164/86 H Blood Pressure Mean Blood Pressure Mean [Lying] 106 Blood Pressure Mean [Sitting (for 1 minute prior to obtaining)] 116 Blood Pressure Mean [Standing (for 1 minute prior to obtaining)] 112 Pulse Ox Oxygen Delivery Method Positive well nourished and well developed General Appearance ED: well developed and NAD HEENT Reports TM's clear and moist mucous membranes HEENT Narrative: No signs of basilar skull fracture. Normal oropharynx. No malocclusion. No trismus. Patient does have cephalhematoma to the left occipital scalp from her fall. No overlying abrasion or laceration. It is tender to palpation. trauma and tenderness Tympanic Membrane ED: Yes TM's clear Eyes PERRL and EOMs intact bilaterally Neck supple Neck Narrative: Diffuse mild tenderness to the neck. It is midline and paraspinal. General: tenderness Chest Wall inspection of chest normal and palpation of chest normal Chest Narrative: On breast exam patient does have firm proximately 2 cm circumferential lump/mass to the mid outer quadrant of the breast. No overlying skin changes. No tenderness to palpation. Resp normal respiratory effort and clear to auscultation bilaterally Cardio regular rate, regular rhythm and no murmurs GI normal to inspection, nondistended, normoactive bowel sounds and non-tender Palpation: soft; Negative for tender or guarding Back/Spine Thoracic Spine / Upper Back: Negative for thoracic spinal tenderness Lumbar Spine / Lower Back: Negative for lumbar spinal tenderness Extremity normal to inspection General Extremety ED: Negative for edema or tenderness General Extremity: Negative for edema Neuro oriented x3 Sensorium / Orientation: alert Motor Exam: Negative for general weakness Psych mental status grossly normal Skin no rashes or lesions noted and no wounds MDM MDM MDM Narrative Medical decision making narrative: Patient valuated for syncopal episode. She did fall and hit her head. Complained of head and neck pain. Will obtain CT of the brain and cervical spine to rule out traumatic injury including intracranial hemorrhage, skull fracture or C-spine fracture. Patient given Tylenol for pain in the emergency room. Syncopal workup obtained. Will include D-dimer especially as patient found a recent lump on her left breast and there is concern for possible breast cancer. Patient's orthostatics are positive in the sense that she is symptomatic and her blood pressure does 172/68 with a pulse of 84 lying to 149/80 with a pulse of 84 when she is standing. She is given a liter of IV fluid and orthostatics have improved but she is symptomatic and feels very shaky during it. Workup is remarkable for an elevated D-dimer. CTA is added on which does not show any acute PE but does show a left breast mass. I did speak with Dr. Perry, who will have her office call them to arrange outpatient follow-up and biopsy of this. Patient is informed of this and is agreeable. CBC otherwise normal. CMP shows a mild bump in her creatinine to 1.52 (patient's baseline appears to be 1.1-1.2). At this point of some associated dehydration. High since he troponin is not positive on the delta but it does go from 18-31. Urinalysis is not consistent with infection. CT of the brain does not show any acute intracranial process but does show small scalp hematoma consistent with her physical exam. On repeat evaluation patient still feels weak. Given syncope without prodrome and her age I do think it be reasonable to keep her in for observation. Case is discussed with Dr. Bonilla. Lab Data Attestation: I reviewed the patient's lab results. Labs: Laboratory Results - last 24 hr 05/03/24 05/03/24 05/03/24 09:35 11:01 11:50 WBC 7.5 RBC 4.31 Hgb 13.2 Hct 40.6 MCV 94.2 MCH 30.6 MCHC 32.5 RDW Std Deviation 45.4 H RDW Coeff of Tello 13.2 Plt Count 259 MPV 10.0 Immature Gran % (Auto) [employer] Neut % (Auto) [employer] Lymph % (Auto) [employer] [place] % (Auto) [employer] Eos % (Auto) [employer] Baso % (Auto) [employer] Absolute Neuts (auto) 6.4 Absolute Lymphs (auto) 1.04 Total Counted 100 Neutrophils % (Manual) 85 H Lymphocytes % (Manual) 14 L Monocytes % (Manual) 1 Nucleated RBC % 0 Platelet Estimate ADEQUATE RBC Morphology NORM C+C D-Dimer Quant (PE/DVT) 2.04 H* Sodium 142 Potassium 3.3 L Chloride 109 H Carbon Dioxide 24.0 Anion Gap 9 BUN 10 Creatinine 1.52 H Estim Creat Clear Calc 29.66 Est GFR (MDRD) Af Amer 43 L Est GFR (MDRD) Non-Af 35 L BUN/Creatinine Ratio 6.6 L Glucose 125 H Calcium 9.2 Troponin I High Sens 18 31 Urine Color Yellow Urine Clarity Sl. Cloudy Urine pH 6.0 Ur Specific [place] 1.010 Urine Protein 15 H Urine Glucose (UA) Normal Urine Ketones Negative Urine Occult Blood 10 H Urine Nitrite Negative Urine Bilirubin Negative Urine Urobilinogen Normal Ur Leukocyte Esterase Negative Urine RBC 0 SEEN Urine WBC 0 SEEN Ur Squamous Epith Cells 0-5 SEEN Amorphous Sediment 2+ Urine Bacteria 0 SEEN Urine Mucus 0 SEEN Radiography Diagnostic Testing: Clinical Impression(s) from Imaging Studies Brain CT 05/03/24 08:59 IMPRESSION: 1. Small left occipital scalp hematoma. 2. Chronic microvascular ischemic changes. 3. Mild cerebral cortical atrophy. 4. No acute intracranial abnormalities are demonstrated. Reading Location: [facility] Cervical Spine CT 05/03/24 08:59 IMPRESSION: NO ACUTE CERVICAL FRACTURE. DEGENERATIVE CHANGES. One or more dose reduction techniques were used (e.g., Automated exposure control, adjustment of the mA and/or kV according to patient size, use of iterative reconstruction technique). Reading Location: [facility]--1 Chest CTA 05/03/24 10:34 IMPRESSION: No evidence of pulmonary embolism. No acute abnormality is seen. One or more dose reduction techniques were used (e.g., Automated exposure control, adjustment of the mA and/or kV according to patient size, use of iterative reconstruction technique). Reading Location: [facility]-1 Rhythm Strip Rhythm Strip: Sinus Rhythm Rate: 80 Ectopy: None EKG Initial EKG: Attestation: I personally reviewed and interpreted this EKG as follows: Interpretation: Sinus Rhythm Comments: Normal sinus rhythm rate of 80 bpm Normal axis Normal intervals Normal ST segments Management Discussion w/another healthcare provider: Hospitalist Discharge Plan Dx/Rx/DC Orders Clinical Impression: Syncope and collapse, Left breast mass, Acute renal insufficiency, Hematoma of occipital region of scalp Disposition Disposition: Acute Care Hospital [facility]
[2024-05-03 09:49] LABS: Basophil# 0.04 X10^3/uL; Eosinophil# 1.77 X10^3/uL; Hematocrit 40.6 % (37-47); Hemoglobin 13.2 g/dL (12.0-15.0); Mean Corp Hgb Conc 32.5 g/dL (32-36); Mean Corpuscular Hgb 30.6 pg (27.0-32.0); Mean Corpuscular Volume 94.2 fL (81-99); Monocyte# 0.39 X10^3/uL; NRBC Flagged by Analyzer 0 % (0-5); POSITIVE MORPHOLOGY YES; Platelet Count 259 K/mm3 (150-450); RBC Distribution Width CV 13.2 % (11.6-14.6); RBC Distribution Width SD 45.4 fl (35.1-43.9); Red Blood Count 4.31 M/mm3 (4.2-5.4); White Blood Count 7.5 K/mm3 (4.4-11.0)
[2024-05-03 10:12] LABS: D-Dimer Quantitative (DVT/PE) 2.04 FEU/ug/m (0.27-0.49)
[2024-05-03 10:19] LABS: Anion Gap 9 (5-15); BUN 10 mg/dL (7-18); BUN/Creat Ratio 6.6 RATIO (10-20); Calcium,Total 9.2 mg/dL (8.5-10.1); Chloride 109 mmol/L (98-107); Creatinine, Serum 1.52 mg/dL (0.55-1.02); EST Glomerular Filtration Rate 35 mL/min (>60); Est Glom Filt Rate - Afr Amer 43 mL/min (>60); Estimated Creatinine Clearance 29.66 ml/min; Glucose 125 mg/dL (74-106); Potassium 3.3 mmol/L (3.5-5.1); Sodium Level 142 mmol/L (136-145); Troponin-I HS (w/2H Reflex) 18 pg/mL (3.0-54.0)
[2024-05-03 10:23] LABS: Differential Indicated SCAN CRITERIA MET
[2024-05-03 10:24] LABS: Scan Smear per Review Criteria MANUAL DIFF
[2024-05-03 10:26] LABS: Absolute Neutrophil Count 6.4 X10^3/uL (2.0-7.7); Lymphocyte 14 % (19-41); Monocyte 1 % (0-10); Neutrophil # 6.35 X10^3/uL (2.7-7.7); Neutrophil-Segmented 85 % (47-70); Platelet Estimate ADEQUATE (ADEQ); Red Cell Morphology NORM C+C NORMAL (NORM C&C); Total Cells Counted 100 (MANUAL DIFF)
[2024-05-03 10:27] LABS: Absolute Lymphocyte Count 1.04 X10^3/uL (0.83-4.51); Lymphocyte # 1.04 X10^3/ul (0.83-4.51)
--- NOTE | 2024-05-03 10:34 | CT_ITS ---
PROCEDURE: CTA CHEST W/WO CONTRAST REASON FOR EXAM: Multiple syncopal episodes. TECHNIQUE: CTA imaging of the chest with intravenous contrast. 3D reconstructions. CONTRAST: 100 cc of Isovue 370. COMPARISON: Comparison is made with prior CT scan of the thorax dated July 23, 2018. FINDINGS: Hardware: None. Lymph nodes: No mediastinal hilar or axillary lymphadenopathy. Heart: Normal heart size. No pericardial effusion. No coronary artery calcification is present. RV/LV Diameter Ratio: N/A Thoracic Aorta: No thoracic aortic aneurysm or dissection. Pulmonary Vessels: No evidence of acute pulmonary emboli through the major subsegmental branches. Most Proximal Level of Embolus (if embolus present): N/A Lungs and Airways: The lungs are normally expanded and clear. Pleura: No pleural effusion. No pneumothorax. Upper Abdomen: The patient is status post cholecystectomy. A biliary drainage catheter is seen within the common bile duct. Small hiatal hernia. Bones: Degenerative changes of the thoracic spine. CT/CTA Chest W/WO Contrast IMPRESSION: No evidence of pulmonary embolism. No acute abnormality is seen. One or more dose reduction techniques were used (e.g., Automated exposure contr ol, adjustment of the mA and/or kV according to patient size, use of iterative reconstruction technique). Reading Location: [place] [id number]
[2024-05-03] MEDS: 0.9% Normal Saline (1000mL) 1,000 ML 999 ML IV (10:57)
[2024-05-03 11:10] LABS: Bacteria 0 SEEN /hpf (None Seen); Mucous, Urine 0 SEEN /hpf (<or=2+); White Blood Cells 0 SEEN /hpf (0-5)
[2024-05-03 11:12] LABS: Color, Urine Yellow (Yellow); Glucose, Dipstick Normal (Normal); Ketone-Dipstick Negative (Negative); Leukocyte Esterase-Dipstick Negative /ul (Negative); Nitrite-Dipstick Negative (Negative); Occult Blood-Urine 10 /ul (Negative); Protein-Dipstick 15 mg/dl (Negative); Urine Bilirubin Dipstick Negative (Negative); Urine Clarity Sl. Cloudy (Clear); Urine Urobilinogen Normal (Normal)
[2024-05-03 11:17] LABS: Squamous Epithelial Cells - UA 0-5 SEEN /hpf (5-10)
[2024-05-03 11:18] LABS: Amorphous Sediment 2+; Red Blood Cells-Urine 0 SEEN /hpf (0-5)
[2024-05-03 11:43] LABS: Reflex Troponin-HS? (from REC) Y
[2024-05-03 12:19] LABS: Troponin-I HS 31 pg/mL (3.0-54.0)
--- NOTE | 2024-05-03 12:59 | HP.PCM.HOS_ITS ---
HPI - General General Date of Admission: 05/03/24 Date of Service: 05/03/24 Chief Complaint: Syncopal episode HPI Narrative STEVE HASSAN, is a 78 F who presented to [facility] ED on 05/03/2024 after a syncopal episode. Patient's medical history is significant for only hypertension. She walked to the gestation this morning as she normally does but shortly after getting inside, she began to feel a bit hot and then next thing she knew she was on the ground. She hit the back of her head with the syncopal episode. She reported feeling somewhat more tired when walking to the gas station today but was otherwise in her normal state of health. Denies any recent illnesses. In the ED she was found to be hypertensive but noted she had not taken her home blood pressure medication yet today. She did report some pain in the back of her head and was found to have a small left occipital scalp hematoma that did not require any intervention. CT brain was unremarkable aside from showing the scalp hematoma. Orthostatic vital signs were done on arrival and were mildly positive. She was given 1 L of IV fluids and repeat orthostatics were improved. Given the syncopal episode without significant prodromal symptoms, hospitalist was contacted for admission. I saw the patient at bedside in the ED. Patient was sitting back comfortably in bed, conversing normally, in no acute distress. She was mildly fatigued appearing but otherwise comfortable appearing. She denied any chest pain or shortness of breath. Reported mild head pain at the site of the hematoma but otherwise no acute pain or discomfort. No other acute concerns at this time. [facility] Medical History HLD (hyperlipidemia) HTN (hypertension) Glaucoma Home Medications ?Medication ?Instructions ?Recorded ?Last Taken ?Type amlodipine 5 mg tablet 5 mg PO SUTUWETHFRSA BLOOD P RESSURE 10/02/20 08/26/23 History amlodipine 2.5 mg tablet 2.5 mg PO MO BLOOD PRESSURE 08/26/23 05/02/24 History Allergy/AdvReac Type Severity Reaction Status Date / Time No Known Allergies Allergy Verified 05/03/24 08:50 Surgical History S/P laparoscopic cholecystectomy Social History Smoking Status: Never smoker substance use type: does not use ROS Constitutional Constitutional: Reports fatigue; Denies chills, fever(s) or weakness Eyes Eyes: Denies change in vision Cardiovascular Cardiovascular: Reports syncope; Denies chest pain Respiratory/Chest Respiratory/Chest: Denies cough, shortness of breath at rest or shortness of breath with exertion Gastrointestinal Gastrointestinal: Denies abdominal pain, constipation or diarrhea Genitourinary Genitourinary: Denies dysuria Musculoskeletal Musculoskeletal: Denies arthralgias or myalgias Neurologic Neurologic: Denies disequilibrium, dizziness, focal weakness or headache(s) Vital Signs Vital Signs Vital Signs: 05/03/24 08:36 05/03/24 08:47 05/03/24 11:03 Temperature 97.7 F L Temperature Source Oral Pulse Rate 96 84 Pulse Rate [Lying] Pulse Rate [Sitting (for 1 minute prior to obtaining)] Pulse Rate [Standing (for 1 minute prior to obtaining)] Respiratory Rate 16 16 Respiratory Effort Normal Respiratory Depth Respiratory Pattern Normal Blood Pressure 152/84 H 180/81 H Blood Pressure [Lying] Blood Pressure [Sitting (for 1 minute prior to obtaining)] Blood Pressure [Standing (for 1 minute prior to obtaining)] Blood Pressure Mean 106 114 Blood Pressure Mean [Lying] Blood Pressure Mean [Sitting (for 1 minute prior to obtaining)] Blood Pressure Mean [Standing (for 1 minute prior to obtaining)] Pulse Ox 100 100 Oxygen Delivery Method Room Air Room Air 05/03/24 11:03 05/03/24 11:07 05/03/24 12:32 Temperature Temperature Source Pulse Rate 83 Pulse Rate [Lying] 84 Pulse Rate [Sitting (for 1 minute prior to obtaining)] 89 Pulse Rate [Standing (for 1 minute prior to obtaining)] 84 Respiratory Rate Respiratory Effort Normal Respiratory Depth Normal Respiratory Pattern Normal Blood Pressure 149/74 H Blood Pressure [Lying] 172/68 H Blood Pressure [Sitting (for 1 minute prior to obtaining)] 165/73 H Blood Pressure [Standing (for 1 minute prior to obtaining)] 149/80 H Blood Pressure Mean 99 Blood Pressure Mean [Lying] 102 Blood Pressure Mean [Sitting (for 1 minute prior to obtaining)] 103 Blood Pressure Mean [Standing (for 1 minute prior to obtaining)] 103 Pulse Ox 100 Oxygen Delivery Method Room Air 05/03/24 12:33 Temperature Temperature Source Pulse Rate Pulse Rate [Lying] 100 Pulse Rate [Sitting (for 1 minute prior to obtaining)] 81 Pulse Rate [Standing (for 1 minute prior to obtaining)] 82 Respiratory Rate Respiratory Effort Respiratory Depth Respiratory Pattern Blood Pressure Blood Pressure [Lying] 153/83 H Blood Pressure [Sitting (for 1 minute prior to obtaining)] 176/87 H Blood Pressure [Standing (for 1 minute prior to obtaining)] 164/86 H Blood Pressure Mean Blood Pressure Mean [Lying] 106 Blood Pressure Mean [Sitting (for 1 minute prior to obtaining)] 116 Blood Pressure Mean [Standing (for 1 minute prior to obtaining)] 112 Pulse Ox Oxygen Delivery Method Weight Weight: 66.6 kg Body Mass Index (BMI) 23.0 Physical Exam Const alert, oriented x3, no apparent distress and average body habitus Constitutional Narrative: Elderly female, mildly fatigued appearing but otherwise sitting back comfortably in bed, conversing normally, in no acute distress. General Appearance: cooperative and comfortable HEENT normocephalic, head/scalp atraumatic, hearing grossly normal bilaterally, nasal mucous membranes and turbinates normal and moist oral mucous membranes Eyes PERRL, EOMs intact bilaterally and conjunctivae normal Neck full ROM, no lymphadenopathy and supple Lymph Lymphatic: no lymphadenopathy noted Chest inspection of chest normal Resp normal respiratory effort, normal air movement, no use of accessory muscles and clear to auscultation bilaterally Cardio regular rate, regular rhythm, no murmurs and peripheral pulses 2+ throughout GI normal to inspection, nondistended, normoactive bowel sounds, soft to palpation, non-tender and non-distended Back/Spine normal ROM Extremity normal to inspection, full ROM and no pedal edema Skin no rashes or lesions noted Neuro moves all extremities and no focal motor deficits Speech: speech normal Motor Exam: strength 5/5 throughout Psych mental status grossly normal Results Lab / Micro Data 05/03/24 09:35 05/03/24 09:35 Labs: Laboratory Results - last 24 hr 05/03/24 09:35: WBC 7.5, RBC 4.31, Hgb 13.2, Hct 40.6, MCV 94.2, MCH 30.6, MCHC 32.5, RDW Std Deviation 45.4 H, RDW Coeff of Tello 13.2, Plt Count 259, MPV 10.0, Immature Gran % (Auto) CASH POSTING REPRESENTATIVE, Neut % (Auto) CASH POSTING REPRESENTATIVE, Lymph % (Auto) CASH POSTING REPRESENTATIVE, [place] % (Auto) CASH POSTING REPRESENTATIVE, Eos % (Auto) CASH POSTING REPRESENTATIVE, Baso % (Auto) CASH POSTING REPRESENTATIVE, Absolute Neuts (auto) 6.4, Absolute Lymphs (auto) 1.04, Total Counted 100, Neutrophils % (Manual) 85 H, Lymphocytes % (Manual) 14 L, Monocytes % (Manual) 1, Nucleated RBC % 0, Platelet Estimate ADEQUATE, RBC Morphology NORM C+C, D-Dimer Quant (PE/DVT) 2.04 H*, Sodium 142, P otassium 3.3 L, Chloride 109 H, Carbon Dioxide 24.0, Anion Gap 9, BUN 10, C reatinine 1.52 H, Estim Creat Clear Calc 29.66, Est GFR (MDRD) Af Amer 43 L, Est GFR (MDRD) Non-Af 35 L, BUN/Creatinine Ratio 6.6 L, Glucose 125 H, Calcium 9.2, Troponin I High Sens 18 05/03/24 11:01: Urine Color Yellow, Urine Clarity Sl. Cloudy, Urine pH 6.0, Ur Specific [place] 1.010, Urine Protein 15 H, Urine Glucose (UA) Normal, Urine Ketones Negative, Urine Occult Blood 10 H, Urine Nitrite Negative, Urine Bilirubin Negative, Urine Urobilinogen Normal, Ur Leukocyte Esterase Negative, Urine RBC 0 SEEN, Urine WBC 0 SEEN, Ur Squamous Epith Cells 0-5 SEEN, Amorphous Sediment 2+, Urine Bacteria 0 SEEN, Urine Mucus 0 SEEN 05/03/24 11:50: Troponin I High Sens 31 Imaging Radiology Impression Brain CT 05/03/24 08:59 IMPRESSION: 1. Small left occipital scalp hematoma. 2. Chronic microvascular ischemic changes. 3. Mild cerebral cortical atrophy. 4. No acute intracranial abnormalities are demonstrated. Reading Location: [facility] Cervical Spine CT 05/03/24 08:59 IMPRESSION: NO ACUTE CERVICAL FRACTURE. DEGENERATIVE CHANGES. One or more dose reduction techniques were used (e.g., Automated exposure control, adjustment of the mA and/or kV according to patient size, use of iterative reconstruction technique). Reading Location: [facility] Chest CTA 05/03/24 10:34 IMPRESSION: No evidence of pulmonary embolism. No acute abnormality is seen. One or more dose reduction techniques were used (e.g., Automated exposure control, adjustment of the mA and/or kV according to patient size, use of iterative reconstruction technique). Reading Location: [place] [id number] Assessment & Plan Assessment/Plan (1) Syncope and collapse: (2) Dehydration: PLAN: Plan Patient is a 78-year-old female who presented [facility] ED on 05/03/2024 with syncope. 1. Syncope ? Admit under observation status to PCU. Patient with positive orthostatics as noted below and did seem to have mild prodromal symptoms prior to her syncopal episode. D-dimer elevated but CTA chest with no PE noted. Suspect vasovagal syncope but cannot rule out arrhythmia. Echo ordered. Continue cardiac monitoring. 2. Mild creatinine elevation in setting of CKD stage IIIa with positive orthostatics ? Creatinine 1.52 on admit, baseline around 1.2. Orthostatics mildly positive on arrival to the ED, improved with 1 L of IV fluids. Presumed secondary to dehydration. Follow-up a.m. BMP and monitor urine output. 3. Mild hypokalemia ? Potassium 3.3 on admit. Mag and Phos normal. Replete as needed. 4. Left breast mass ? Noted recently and saw primary care doctor for this last week and was referred for mammography. CT chest showed a 2.4 cm mass in the inferior aspect of the left breast. ED physician discussed with general surgery; no need for inpatient evaluation but will need close outpatient follow-up after discharge. 5. Small left scalp hematoma ? Secondary to syncopal episode with fall. Evaluated in ED, no need for intervention. DVT prophylaxis: Heparin subcu CODE STATUS: Full code, verified Expected disposition: Home, 1 to 2 days Total clinical time spent by myself addressing the patient's medical issues, reviewing all the data, and collaborating with patient's care team: 55 minutes. Charges/Coding Visit Charges Inpatient E&M: 59216 Init Hosp L2
[2024-05-03] MEDS: Potassium Chloride Oral Tablet 20 MEQ 40 MEQ PO (13:09)
[2024-05-03 14:33] LABS: Phosphorus 2.3 mg/dL (2.5-4.9)
--- NOTE | 2024-05-03 17:33 | ECHOD_ITS ---
Reason For Study Reason For Study: Syncope Left Ventricle Normal LV size. Mild concentric left ventricular hypertrophy. Left ventricle hyperdynamic. Estimated LVEF >80%. Dynamic LVOT gradient rising to 90 mmHg with Valsalva. Stage I diastolic dysfunction. Right Ventricle Normal right ventricle. Atria The left and right atria are normal. Mitral Valve Mild-Moderate (1-2+) posteriorly directed mitral valve insufficiency. Tricuspid Valve Trivial tricuspid valve insufficiency. Right ventricular systolic pressure estimated to be 39 mmHg. Aortic Valve Trisinus/trileaflet aortic valve. Pulmonic Valve The pulmonic valve is not well visualized. Great Vessels Normal sized aortic root. Pericardium/Pleural No pericardial effusion. MMode/2D Measurements & Calculations LVIDd: 4.2 cm IVSd: 1.2 cm Ao root diam: 2.9 cm LVIDs: 1.6 cm LVPWd: 1.1 cm RVDd: 3.2 cm FS: 62.7 % LAV(MOD-bp): 48.9 ml LVAd ap4: 19.2 cm2 LVAd ap2: 16.7 cm2 LAV(MOD-bp) Indexed: 28.7 ml/m2 LVLd ap4: 6.9 cm LVLd ap2: 6.6 cm LAV(MOD-sp2): 33.6 ml EDV(MOD-sp4): 45.0 ml EDV(MOD-sp2): 36.5 ml LAV(MOD-sp4): 64.0 ml EDV(sp4-el): 45.3 ml EDV(sp2-el): 36.0 ml LVAs ap4: 7.7 cm2 LVAs ap2: 8.1 cm2 LVLs ap4: 5.7 cm LVLs ap2: 5.9 cm ESV(MOD-sp4): 9.8 ml ESV(MOD-sp2): 10.6 ml ESV(sp4-el): 8.8 ml ESV(sp2-el): 9.5 ml EF(MOD-sp4): 78.2 % EF(MOD-sp2): 71.1 % EF(sp4-el): 80.5 % SV(MOD-sp4): 35.1 ml SV(MOD-sp2): 26.0 ml SV(sp4-el): 36.4 ml SI(MOD-sp4): 20.6 ml/m2 SI(MOD-sp2): 15.2 ml/m2 LA A4 area: 21.9 cm2 LA dimension(2D): 2.9 cm RA A4 area: 13.4 cm2 TAPSE: 2.4 cm Time Measurements MV dec time: 0.23 sec Doppler Measurements & Calculations MV E max reynaldo: 59.3 cm/sec Lat Peak E' Reynaldo: 9.7 cm/sec Med Peak E' Reynaldo: 9.7 cm/sec MV A max reynaldo: 85.4 cm/sec E/E' lat: 6.1 E/E' med: 6.1 MV E/A: 0.69 Ao V2 max: 146.6 cm/sec LV V1 max: 127.8 cm/sec MV dec slope: 255.3 cm/sec2 Ao max P.6 mmHg LV V1 max P.5 mmHg Ao V2 mean: 106.1 cm/sec LV V1 mean P.7 mmHg Ao mean P.9 mmHg LV V1 mean: 92.5 cm/sec Ao V2 VTI: 29.1 cm LV V1 VTI: 26.4 cm AV (velocity ratio): 0.91 PA V2 max: 93.6 cm/sec TR max reynaldo: 289.8 cm/sec TR max P.6 mmHg ECHO/Echo Complete Interpretation Summary Mild concentric left ventricular hypertrophy. Left ventricle hyperdynamic. Estimated LVEF >80%. Dynamic LVOT gradient rising to 90 mmHg with Valsalva. Stage I diastolic dysfunction. Mild-Moderate (1-2+) posteriorly directed mitral valve insufficiency. Right ventricular systolic pressure estimated to be 39 mmHg. Ordering Physician: Trung Bonilla Performed By: Kyleigh Freitas RDCS
[2024-05-03] MEDS: amLODIPine 5 MG Tablet PO (18:15)
[2024-05-03] MEDS: Heparin Injection (Vial) 5,000 UNIT/ML VIAL 5000 UNIT SC (20:40)
[2024-05-04 01:30] VITALS: BP 126/60; PULSE 90; RESP 17; TEMP 36.8; O2SAT 100
[2024-05-04 05:00] VITALS: BP 126/64; PULSE 92; RESP 18; TEMP 36.6; O2SAT 100
[2024-05-04 07:03] VITALS: O2SAT 97
[2024-05-04 07:47] LABS: Hematocrit 33.6 % (37-47); Hemoglobin 10.8 g/dL (12.0-15.0); Mean Corp Hgb Conc 32.1 g/dL (32-36); Mean Corpuscular Hgb 30.3 pg (27.0-32.0); Mean Corpuscular Volume 94.4 fL (81-99); Mean Platelet Vol. 10.8 fl (6.2-12.0); Platelet Count 230 K/mm3 (150-450); RBC Distribution Width CV 13.5 % (11.6-14.6); RBC Distribution Width SD 46.2 fl (35.1-43.9); Red Blood Count 3.56 M/mm3 (4.2-5.4); White Blood Count 5.4 K/mm3 (4.4-11.0)
[2024-05-04 08:32] LABS: Anion Gap 5 (5-15); BUN 12 mg/dL (7-18); BUN/Creat Ratio 10.5 RATIO (10-20); Calcium,Total 8.6 mg/dL (8.5-10.1); Chloride 114 mmol/L (98-107); Creatinine, Serum 1.14 mg/dL (0.55-1.02); EST Glomerular Filtration Rate 49 mL/min (>60); Est Glom Filt Rate - Afr Amer 59 mL/min (>60); Estimated Creatinine Clearance 39.02 ml/min; Glucose 88 mg/dL (74-106); Potassium 3.7 mmol/L (3.5-5.1); Sodium Level 144 mmol/L (136-145)
[2024-05-04] MEDS: Heparin Injection (Vial) 5,000 UNIT/ML VIAL 5000 UNIT SC (10:09)
[2024-05-04] MEDS: amLODIPine 5 MG Tablet PO (10:09)
--- NOTE | 2024-05-04 10:51 | PN.HOSP_ITS ---
Reason for Visit Reason for Visit: Diagnoses Dehydration (05/03/24) Syncope and collapse (05/03/24) Objective Data Objective Data Vital Signs: Vital Signs Temp Pulse Resp BP Pulse Ox O2 Del Method 97.9 F 92 18 126/64 H 97 Room Air 05/04/24 05:00 05/04/24 05:00 05/04/24 05:00 05/04/24 05:00 05/04/24 07:03 05/04/24 07:03 Oxygen Delivery Method Room Air Weight: 60.781 kg Body Mass Index (BMI) 20.9 Intake & Output: Intake and Output for Last 24 Hours 05/02/24 05/03/24 05/04/24 23:59 23:59 23:59 Intake Total 1000 / 1000 Balance 1000 / 1000 Lab / Micro Data 05/04/24 07:17 05/04/24 07:17 Labs: Laboratory Results - last 24 hr 05/03/24 11:01: Urine Color Yellow, Urine Clarity Sl. Cloudy, Urine pH 6.0, Ur Specific [place] 1.010, Urine Protein 15 H, Urine Glucose (UA) Normal, Urine Ketones Negative, Urine Occult Blood 10 H, Urine Nitrite Negative, Urine Bilirubin Negative, Urine Urobilinogen Normal, Ur Leukocyte Esterase Negative, Urine RBC 0 SEEN, Urine WBC 0 SEEN, Ur Squamous Epith Cells 0-5 SEEN, Amorphous Sediment 2+, Urine Bacteria 0 SEEN, Urine Mucus 0 SEEN 05/03/24 11:50: Troponin I High Sens 31 05/03/24 11:58: Phosphorus 2.3 L, Magnesium 2.0 05/04/24 07:17: WBC 5.4, RBC 3.56 L, Hgb 10.8 L, Hct 33.6 L, MCV 94.4, MCH 30.3, MCHC 32.1, RDW Std Deviation 46.2 H, RDW Coeff of Tello 13.5, Plt Count 230, MPV 10.8, Sodium 144, Potassium 3.7, Chloride 114 H, Carbon Dioxide 25.0, Anion Gap 5, BUN 12, Creatinine 1.14 H, Estim Creat Clear Calc 39.02, Est GFR (MDRD) Af Amer 59 L, Est GFR (MDRD) Non-Af 49 L, BUN/Creatinine Ratio 10.5, Glucose 88, Calcium 8.6 Radiography Diagnostic Testing: Radiology Impression Brain CT 05/03/24 08:59 IMPRESSION: 1. Small left occipital scalp hematoma. 2. Chronic microvascular ischemic changes. 3. Mild cerebral cortical atrophy. 4. No acute intracranial abnormalities are demonstrated. [facility] Spine CT 05/03/24 08:59 IMPRESSION: NO ACUTE CERVICAL FRACTURE. DEGENERATIVE CHANGES. One or more dose reduction techniques were used (e.g., Automated exposure control, adjustment of the mA and/or kV according to patient size, use of iterative reconstruction technique). Reading Location: [facility]-IR-1 Chest CTA 05/03/24 10:34 IMPRESSION: No evidence of pulmonary embolism. No acute abnormality is seen. One or more dose reduction techniques were used (e.g., Automated exposure control, adjustment of the mA and/or kV according to patient size, use of iterative reconstruction technique). Reading Location: [facility]-1 Rhythm Strip Rhythm Strip: Sinus Rhythm Rate: 80 Ectopy: None
--- NOTE | 2024-05-04 12:37 | DCINST_ITS ---
Discharge Instructions Diet Discharge Diet: No restrictions DC O2, CPAP, BIPAP needs Home O2 Discharge instructions: No Dressing / Incision Discharge Activity: No Restrictions Follow Up Care Test Results: Test results from this visit will be discussed in further detail at your follow- up appointment, if applicable. Discharge Plan Admission Admit Date/Time: 05/03/24 12:59 Primary Reason for Your Visit: episode of passing out Attending Provider: Trung Bonilla Primary Care Provider: Lane Vazquez Instructions Additional Instructions / Restrictions: Please start taking amlodipine 5 mg daily for your high blood pressure. Please call the general surgery office to schedule a follow-up appointment for your left breast mass soon. Follow-up with your primary care doctor as needed. Discharge Orders/Prescriptions Prescriptions: New amlodipine 5 mg Tablet 5 mg PO DAILY 30 Days Qty: 30 0RF Discontinued amlodipine 2.5 mg tablet 2.5 mg PO MO Referrals / Follow Up: Nicolasa Perry MD [Med Staff - Active Staff] - Lane Vazquez MD [Primary Care Provider] - Disposition Disposition (needs filled in before D/C Order can be placed): Home, Self Care
--- NOTE | 2024-05-04 12:40 | PCM.DC.SUM ---
Providers Date of Admission: 05/03/24 Date of Discharge: 05/04/24 Primary Care Physician: Dr. Lane Vazquez MD Reason For Visit: SYNCOPE AND WEAKNESS Diagnosis Discharge Diagnosis (1) Syncope and collapse: Status: Acute Code(s): R55 - Syncope and collapse (2) Dehydration: Status: Inactive Code(s): E86.0 - Dehydration Medications at Discharge Home Medications amlodipine 5 mg tablet 5 mg PO DAILY 30 days #30 tabs 05/04/24 Hospital Course Operations None Procedures EKG, Transthoracic echo and - (CT brain, CT cervical spine, CTA chest) Summary of Care Provided Minutes Spent on Discharge: 35 Hospital Course: Patient is a 78-year-old female who presented [facility] ED on 05/03/2024 with syncope. Short hospital course as noted below. Patient discharged home in stable condition on 05/04. 1. Syncope ? Patient with positive orthostatics as noted below and did seem to have mild prodromal symptoms prior to her syncopal episode. D-dimer elevated but CTA chest with no PE noted. Echo on 05/04 showed EF 80%, mild concentric LV hypertrophy, dynamic LV OT gradient, stage I diastolic dysfunction, RVSP 39 mmHg. Suspect vasovagal syncope with dynamic LVOT possibly contributing. No arrhythmias noted on cardiac monitoring while inpatient. No need for inpatient cardiology consult, okay for close outpatient follow-up. 2. Mild creatinine elevation in setting of CKD stage IIIa with positive orthostatics, resolved ? Creatinine 1.52 on admit, baseline around 1.2. Orthostatics mildly positive on arrival to the ED, improved with 1 L of IV fluids. Presumed secondary to dehydration. Creatinine improved back to baseline by hospital day 2. 3. Mild hypokalemia ? Potassium 3.3 on admit. Mag and Phos normal. Repleted as needed. 4. Left breast mass ? Noted recently and saw primary care doctor for this last week and was referred for mammography. CT chest showed a 2.4 cm mass in the inferior aspect of the left breast. ED physician discussed with general surgery; no need for inpatient evaluation but will need close outpatient follow-up after discharge. 5. Small left scalp hematoma ? Secondary to syncopal episode with fall. Evaluated in ED, no need for intervention. Total clinical time spent by myself addressing the patient's medical issues, reviewing all the data, and collaborating with patient's care team: 35 minutes. Physical Exam Const alert, oriented x3, no apparent distress and average body habitus Constitutional Narrative: Elderly female, energy improved from admission, sitting back comfortably in bed, conversing normally, in no acute distress. General Appearance: cooperative and comfortable HEENT normocephalic, head/scalp atraumatic, hearing grossly normal bilaterally, nasal mucous membranes and turbinates normal and moist oral mucous membranes Eyes PERRL, EOMs intact bilaterally and conjunctivae normal Neck full ROM Chest inspection of chest normal Resp normal respiratory effort, normal air movement, no use of accessory muscles and clear to auscultation bilaterally Cardio regular rate, regular rhythm, no murmurs and peripheral pulses 2+ throughout GI normal to inspection, nondistended, normoactive bowel sounds, soft to palpation, non-tender and non-distended Back/Spine normal ROM Extremity normal to inspection, full ROM and no pedal edema Skin no rashes or lesions noted Neuro moves all extremities and no focal motor deficits Speech: speech normal Motor Exam: strength 5/5 throughout Psych mental status grossly normal Weight / BMI Weight Weight: 60.781 kg Body Mass Index (BMI) 20.9 ABG / Lab / Microbiology Data 05/04/24 07:17 05/04/24 07:17 Laboratory: Laboratory Results - last 24 hr 05/04/24 07:17: WBC 5.4, RBC 3.56 L, Hgb 10.8 L, Hct 33.6 L, MCV 94.4, MCH 30.3, MCHC 32.1, RDW Std Deviation 46.2 H, RDW Coeff of Tello 13.5, Plt Count 230, MPV 10.8, Sodium 144, Potassium 3.7, Chloride 114 H, Carbon Dioxide 25.0, Anion Gap 5, BUN 12, Creatinine 1.14 H, Estim Creat Clear Calc 39.02, Est GFR (MDRD) Af Amer 59 L, Est GFR (MDRD) Non-Af 49 L, BUN/Creatinine Ratio 10.5, Glucose 88, Calcium 8.6 Radiography Diagnostic Testing: Radiology Impression Echocardiogram 05/03/24 17:33 Interpretation Summary Mild concentric left ventricular hypertrophy. Left ventricle hyperdynamic. Estimated LVEF >80%. Dynamic LVOT gradient rising to 90 mmHg with Valsalva. Stage I diastolic dysfunction. Mild-Moderate (1-2+) posteriorly directed mitral valve insufficiency. Right ventricular systolic pressure estimated to be 39 mmHg. Ordering Physician: Trung Bonilla Performed By: Kyleigh Freitas RDCS D/C Instructions Discharge Diet: No restrictions DC O2, CPAP, BIPAP Needs Home O2 Discharge instructions: No Meaningful Use Info Meaningful Use Meaningful Use Diagnoses (Choose all that apply): None applicable Ischemic Stroke Statin Dosing Therapy Reference: STATIN DOSE THERAPY REFERENCE: * Patients > 75 years receive moderate or high dose statin therapy. * Patients 75 years or YOUNGER should receive HIGH intensity statin dose unless contraindicated. You will be required to document reason for non-treatment if statin daily dose does not meet guidelines. HIGH DOSE STATIN THERAPY DAILY Atorvastatin > than or = to 40 mg Rosuvastatin > than or = to 20 mg Amlodipine + Atorvastatin > than or = to 2.5/40 mg Ezetimibe + Simvastatin 10/80 mg Simvastatin 80mg Discharge Plan Admission Admit Date/Time: 05/03/24 12:59 Primary Reason for Your Visit: episode of passing out Attending Provider: Trung Bonilla Primary Care Provider: Lane Vazquez Instructions Additional Instructions / Restrictions: Please start taking amlodipine 5 mg daily for your high blood pressure. Please call the general surgery office to schedule a follow-up appointment for your left breast mass soon. Follow-up with your primary care doctor as needed. Discharge Orders/Prescriptions Prescriptions: New amlodipine 5 mg Tablet 5 mg PO DAILY 30 Days Qty: 30 0RF Discontinued amlodipine 2.5 mg tablet 2.5 mg PO MO Referrals / Follow Up: Nicolasa Perry MD [Med Staff - Active Staff] - Lane Vazquez MD [Primary Care Provider] - Disposition Disposition (needs filled in before D/C Order can be placed): Home, Self Care Charges/Coding Visit Charges Inpatient E&M: 13560 Disch Hosp >30min
--- NOTE | 2024-05-04 12:54 | CASEMGMT ---
Pt has an order for DC placed. HAJA CM to pt room at this time. Pt sitting up in bed. Pt states that she feels returning home today and denies needs. Pt states that she lives at home with her daughter. Pt states that she is independent and denies the need for HH, OP Tx, or CCN. Pt states that her friend plans to pick her up from the hospital today. Pt also states that she is in the process of moving to [place]. Pt denies any further questions or concerns at this time and is ready for DC today.
== END 2024-05-04 13:45 | disposition home or self-care (01) ==
LOC: ED 13:05 → ICU 16:56
PROVIDERS: Admitting Provider Hospitalist; Emergency Provider Emergency Medicine; PCP Internal Medicine; Visit Provider Hospitalist
DX: R55 Syncope and collapse (principal); N18.31 Chronic kidney disease, stage 3a; E86.0 Dehydration; S00.03XA Contusion of scalp, initial encounter; E78.5 Hyperlipidemia, unspecified; I12.9 Hypertensive chronic kidney disease with stage 1 through stage 4 chronic kidney disease, or unspecified chronic kidney disease; N63.20 Unspecified lump in the left breast, unspecified quadrant; N28.9 Disorder of kidney and ureter, unspecified; E87.6 Hypokalemia; X58.XXXA Exposure to other specified factors, initial encounter; Y93.01 Activity, walking, marching and hiking; Y92.524 Gas station as the place of occurrence of the external cause; Z79.899 Other long term (current) drug therapy
CPT/HCPCS: 36415; 70450; 71275; 72125; 80048; 81001; 83735; 84100; 84484; 85025; 85027; 85379; 93005; 93306; 94668; 96360; 96361; 96372; 99221; 99285; Q9967; A4216; G0378

== ENCOUNTER 2024-06-30 15:50 | Emergency (ER) | payer MEDICARE, SELFPAY ==
[2024-06-30 15:50] VITALS: BP 106/60; PULSE 88; RESP 14; TEMP 36.7; O2SAT 98; BMI 20.5
--- NOTE | 2024-06-30 16:06 | EDS_ITS ---
HPI History of Present Illness Chief Complaint: Chest Pain Informant: patient and EMS Narrative Narrative: 78-year-old female presenting to the emergency room for the chief complaint of chest pain. Patient states that she typically walks to places because she does not have a car. She typically goes downtown. Today it has been much warmer than it has been the rest of the year. She states she had a light jacket on and was walking downtown when she decided that she needed to rest to stop that the hotel. While exiting the hotel she missed stepped going on the stairs and fell down. She denies any injuries from the fall denies striking her head. She states that she decided that she needed to get some water so she walked across the street to the [facility]. While waiting in line she began to feel shaky developed some chest pressure and felt very weak. Eventually somebody bought her water and EMS was called. She states they gave her some aspirin and some nitroglycerin and she began to feel much better. She denies headache or any chest pain at the current time. No dyspnea. She believes that she probably got overheated. She notes a history of hypertension and states that she is on amlodipine. [facility] Medical History HLD (hyperlipidemia) HTN (hypertension) Glaucoma Home Medications ?Medication ?Instructions ?Recorded ?Last Taken ?Type amlodipine 5 mg tablet 5 mg PO DAILY 30 days #30 ta bs 05/04/24 06/29/24 Rx Allergy/AdvReac Type Severity Reaction Status Date / Time No Known Allergies Allergy Verified 06/30/24 15:50 Surgical History S/P laparoscopic cholecystectomy Social History Smoking Status: Never smoker substance use type: does not use ROS ROS ED Constitutional Constitutional ED: Denies chills, fever(s) or weight loss Eyes Eyes: Denies change in vision or diplopia ENT ENT ED: Denies ear pain, rhinorrhea or sore throat Cardiovascular Cardiovascular: Reports as per HPI and chest pain; Denies orthopnea, palpitations or racing heartbeat Respiratory/Chest Respiratory/Chest: Denies cough, dyspnea or orthopnea Gastrointestinal Gastrointestinal: Denies abdominal pain, diarrhea, nausea or vomiting Genitourinary Genitourinary ED: Denies dysuria, hematuria or urinary frequency Musculoskeletal Musculoskeletal: Denies arthralgias or myalgias Integumentary Denies abscess or rash Neurologic Neurologic: Denies headache(s) or weakness Psychiatric Psychiatric: Denies anxiety, depression, suicidal ideation or suicidal thoughts Endocrine Endocrinology: Denies polydipsia, polyphagia or polyuria Allergic/Immunologic Allergic/Immunologic ED: Denies mouth swelling, tongue swelling or urticaria EXAM Physical Exam Const Vital Signs: 06/30/24 15:50 06/30/24 15:57 06/30/24 16:53 Temperature 98.1 F Temperature Source Oral Pulse Rate 88 67 Respiratory Rate 14 14 Respiratory Effort Normal Blood Pressure 106/60 137/65 H Blood Pressure Mean 75 89 Pulse Ox 98 95 Oxygen Delivery Method Room Air 06/30/24 18:00 06/30/24 18:45 06/30/24 19:00 Temperature Temperature Source Pulse Rate 66 66 64 Respiratory Rate 19 H 13 18 Respiratory Effort Blood Pressure 150/64 H 155/68 H 155/68 H Blood Pressure Mean 92 90 97 Pulse Ox 98 100 100 Oxygen Delivery Method Positive well nourished and well developed General Appearance ED: well developed HEENT Reports normocephalic, head/scalp atraumatic and moist mucous membranes Eyes PERRL and EOMs intact bilaterally Neck no lymphadenopathy, supple and no JVD Resp normal respiratory effort and clear to auscultation bilaterally Cardio regular rate, regular rhythm and no murmurs GI normal to inspection, nondistended, normoactive bowel sounds and non-tender Palpation: soft Back/Spine no CVA tenderness and normal ROM Extremity normal to inspection General Extremety ED: Negative for edema General Extremity: Negative for edema Neuro oriented x3 and CN's II-XII intact bilaterally Sensorium / Orientation: alert Motor Exam: strength 5/5 throughout Psych mental status grossly normal Mood & Affect: Negative for depressed or tearful Skin no rashes or lesions noted and no wounds Heart Score History: Slightly/Non-Suspicious ECG: Normal Age: >/= 65 years Risk Factors: 1 or 2 Risk Factors Troponin: >1 - <3 Normal Limit Score: 4 MDM MDM MDM Narrative Medical decision making narrative: Differential diagnoses include heat exhaustion acute coronary syndrome UTI dehydration electrolyte abnormalities anemia aortic dissection/aneurysm pneumothorax pneumonia Patient has been asymptomatic since my examination. Her EKG is nonischemic. Cardiac enzymes are 27 and 31. Urinalysis shows no overt infection and is contaminated. Glucose 109 creatinine 1.84 which is slightly elevated off baseline. Hemoglobin is 11 white count 5.4. Patient received fluids. She has been drinking fluids. She remains asymptomatic. I do wonder if the patient did overdo it today with the unexpected warmth. Spoke with the patient about admission versus observation and she would prefer to be able to go home tonight. I will have her follow-up with primary care. History & Record Review Discussion w/independent historian: EMS personnel and Patient Lab Data Attestation: I reviewed the patient's lab results. Labs: Laboratory Results - last 24 hr 06/30/24 06/30/24 06/30/24 16:24 17:33 18:25 WBC 5.4 RBC 3.51 L Hgb 11.0 L Hct 34.5 L MCV 98.3 MCH 31.3 MCHC 31.9 L RDW Std Deviation 48.3 H RDW Coeff of Tello 13.6 Plt Count 222 MPV 10.4 Immature Gran % (Auto) 0.400 Neut % (Auto) 71.5 H Lymph % (Auto) 20.2 [place] % (Auto) 7.2 Eos % (Auto) 0.0 Baso % (Auto) 0.7 Absolute Neuts (auto) 3.9 Absolute Lymphs (auto) 1.09 Nucleated RBC % 0 Sodium 139 Potassium 4.7 Chloride 107 Carbon Dioxide 17.2 L Anion Gap 15 BUN 16 Creatinine 1.84 H Estim Creat Clear Calc 23.71 L Est GFR (MDRD) Non-Af 28 L BUN/Creatinine Ratio 8.9 L Glucose 109 H Calcium 8.3 Troponin T High Sens 27 H Troponin T Hi Sens 2 Hr 31 H Urine Color Yellow Urine Clarity Sl Cldy Urine pH 6.0 Ur Specific [place] 1.015 Urine Protein 30 H Urine Glucose (UA) Normal Urine Ketones 15 H Urine Occult Blood 10 H Urine Nitrite Negative Urine Bilirubin Negative Urine Urobilinogen Normal Ur Leukocyte Esterase 25 H Urine RBC 0 SEEN Urine WBC 5-10 SEEN Ur Squamous Epith Cells 10-25 SEEN Urine Bacteria RARE Urine Mucus 0 SEEN Urine Yeast 3+ Radiography Diagnostic Testing: Clinical Impression(s) from Imaging Studies Chest X-Ray 06/30/24 16:25 IMPRESSION: Negative Chest. Reading Location: [facility] E[facility] Initial EKG: Attestation: I personally reviewed and interpreted this EKG as follows: Comments: Normal sinus rhythm ventricular rate of 97 bpm Prior EKG tracings: available for review Prior: Unchanged (EKG is dated 03 May 2024.) Discharge Plan Triage Chief Complaint: Chest Pain ED Provider: Butch Trujillo Dx/Rx/DC Orders Clinical Impression: Fall, Chest pain, Heat exhaustion Instructions: ED Chest Pain, Uncertain Cause, ED Heat Exhaustion Prescriptions: No Action amlodipine 5 mg Tablet 5 mg PO DAILY 30 Days Qty: 30 0RF Primary Care Provider: Lane Vazquez Referrals: Lane Vazquez MD [Primary Care Provider] - 3-5 Days Print Language: Palauan Disposition Disposition: Home, Self Care
--- NOTE | 2024-06-30 16:06 | EKG12_ITS ---
Test Reason : CP Blood Pressure : */* mmHG Vent. Rate : 97 BPM Atrial Rate : 97 BPM P-R Int : 126 ms QRS Dur : 68 ms QT Int : 364 ms P-R-T Axes : 67 -1 4 degrees QTcB Int : 462 ms Normal sinus rhythm Nonspecific ST and T wave abnormality Abnormal ECG Confirmed by LILLI OQUENDO, SCOTT ([id number]), visual effects editor SUHAS DEL ROSARIO ([id number]) on 07/03/2024 8:43:35 AM Referred By: Butch Trujillo Confirmed By: SCOTT REEDER MD
[2024-06-30] MEDS: 0.9% Normal Saline (1000mL) 1,000 ML 1000 ML IV (16:25)
--- NOTE | 2024-06-30 16:25 | RAD_ITS ---
PROCEDURE: CHEST 1 VIEW (PORTABLE) 06/30/2024 REASON FOR EXAM: CHEST PAIN TECHNIQUE: Frontal view of the chest. COMPARISON: 08/26/2023 FINDINGS: Hardware: None Heart: Cardiac and mediastinal contours are stable. Lungs: The lungs are clear. Bones: The bones are unremarkable. Other: RAD/Chest 1 View (Portable) IMPRESSION: Negative Chest. Reading Location: [id number]
[2024-06-30 16:33] LABS: Absolute Lymphocyte Count 1.09 X10^3/uL (0.83-4.51); Absolute Neutrophil Count 3.9 X10^3/uL (2.0-7.7); Basophil# 0.04 X10^3/uL; Basophil% 0.7 % (0-1); Hematocrit 34.5 % (37-47); Lymphocyte # 1.09 X10^3/ul (0.83-4.51); Lymphocyte % 20.2 % (19-41); Mean Corp Hgb Conc 31.9 g/dL (32-36); Mean Corpuscular Hgb 31.3 pg (27.0-32.0); Mean Corpuscular Volume 98.3 fL (81-99); Mean Platelet Vol. 10.4 fl (6.2-12.0); Monocyte# 0.39 X10^3/uL; Monocyte% 7.2 % (0-10); NRBC Flagged by Analyzer 0 % (0-5); Neutrophil # 3.86 X10^3/uL (2.7-7.7); Neutrophil % 71.5 % (47-70); Platelet Count 222 K/mm3 (150-450); RBC Distribution Width CV 13.6 % (11.6-14.6); RBC Distribution Width SD 48.3 fl (35.1-43.9); Red Blood Count 3.51 M/mm3 (4.2-5.4); White Blood Count 5.4 K/mm3 (4.4-11.0)
[2024-06-30 16:53] VITALS: BP 137/65; PULSE 67; RESP 14; O2SAT 95
[2024-06-30 17:16] LABS: Anion Gap 15 (5-15); BUN 16 mg/dL (4-19); BUN/Creat Ratio 8.9 RATIO (10-20); Calcium,Total 8.3 mg/dL (7.6-11.0); Carbon Dioxide 17.2 mmol/L (21.0-32.0); Chloride 107 mmol/L (98-108); Creatinine, Serum 1.84 mg/dL (0.70-1.20); EST Glomerular Filtration Rate 28 (>60); Estimated Creatinine Clearance 23.71 ml/min (50-250); Glucose 109 mg/dL (70-99); Potassium 4.7 mmol/L (3.3-5.1); Sodium Level 139 mmol/L (133-145)
[2024-06-30 17:47] LABS: Mucous, Urine 0 SEEN /hpf (<or=2+); Red Blood Cells-Urine 0 SEEN /hpf (0-5)
[2024-06-30 17:51] LABS: Troponin T High Sensitivity 27 ng/L (<=14)
[2024-06-30 18:00] VITALS: BP 150/64; PULSE 66; RESP 19; O2SAT 98
[2024-06-30 18:12] LABS: Color, Urine Yellow (Yellow); Glucose, Dipstick Normal (Normal); Ketone-Dipstick 15 mg/dl (Negative); Leukocyte Esterase-Dipstick 25 /ul (Negative); Nitrite-Dipstick Negative (Negative); Occult Blood-Urine 10 /ul (Negative); Protein-Dipstick 30 mg/dl (Negative); Specific Gravity, Urine 1.015 (1.002-1.030); Urine Bilirubin Dipstick Negative (Negative); Urine Clarity Sl Cldy (Clear); Urine Urobilinogen Normal (Normal)
[2024-06-30 18:15] LABS: White Blood Cells 5-10 SEEN /hpf (0-5)
[2024-06-30 18:17] LABS: Bacteria RARE /hpf (None Seen); Squamous Epithelial Cells - UA 10-25 SEEN /hpf (5-10); Yeast-Urine 3+ /hpf (None Seen)
[2024-06-30 18:45] VITALS: BP 155/68; PULSE 66; RESP 13; O2SAT 100
[2024-06-30 18:59] LABS: Troponin T High Sens 2 HR 31 ng/L (<=14)
[2024-06-30 19:00] VITALS: BP 155/68; PULSE 64; RESP 18; O2SAT 100
[2024-06-30 19:45] VITALS: BP 145/74; PULSE 85; RESP 16; TEMP 36.8; O2SAT 99
== END 2024-06-30 19:45 | disposition home or self-care (01) ==
PROVIDERS: Emergency Provider Emergency Medicine; PCP Internal Medicine; Referring Provider Emergency Medicine; Visit Provider Emergency Medicine
DX: R07.89 Other chest pain (principal); T67.5XXA Heat exhaustion, unspecified, initial encounter; W10.9XXA Fall (on) (from) unspecified stairs and steps, initial encounter; Y92.59 Other trade areas as the place of occurrence of the external cause; I10 Essential (primary) hypertension; E78.5 Hyperlipidemia, unspecified; Z79.899 Other long term (current) drug therapy
CPT/HCPCS: 71045; 80048; 81001; 84484; 85025; 93005; 96360; 96361; 99285; A4216

== ENCOUNTER 2024-08-16 17:18 | Emergency (ER) | payer MEDICARE, SELFPAY ==
[2024-08-16 17:22] VITALS: BP 92/50; PULSE 87; RESP 18; TEMP 36.4; O2SAT 97
--- NOTE | 2024-08-16 17:28 | EKG12_ITS ---
Test Reason : Blood Pressure : */* mmHG Vent. Rate : 80 BPM Atrial Rate : 80 BPM P-R Int : 134 ms QRS Dur : 70 ms QT Int : 384 ms P-R-T Axes : 64 -9 8 degrees QTcB Int : 442 ms Normal sinus rhythm Normal ECG Confirmed by THERESE OQUENDO, BAUTISTA ([id number]), food editor MADAI AN ([id number]) on 08/21/2024 6:21:14 AM Referred By: HAMZAH/NICK Confirmed By: BAUTISTA SALEH MD
[2024-08-16 18:12] VITALS: BMI 20.4
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
--- NOTE | 2024-08-16 18:50 | RAD_ITS ---
PROCEDURE: CHEST PA AND LATERAL 08/16/2024 REASON FOR EXAM: NEAR SYNCOPE TECHNIQUE: Frontal and lateral views of the chest. COMPARISON: 06/30/2024 FINDINGS: No focal consolidations. No pleural effusion or pneumothorax. Cardiac silhouette is unchanged. No acute fractures. RAD/Chest PA and Lateral IMPRESSION: No focal consolidations. Reading Location: [id number]
[2024-08-16 19:01] LABS: Absolute Lymphocyte Count 1.16 X10^3/uL (0.83-4.51); Absolute Neutrophil Count 4.6 X10^3/uL (2.0-7.7); Basophil# 0.02 X10^3/uL; Basophil% 0.3 % (0-1); Hematocrit 37.8 % (37-47); Hemoglobin 12.1 g/dL (12.0-15.0); Lymphocyte # 1.16 X10^3/ul (0.83-4.51); Lymphocyte % 18.7 % (19-41); Mean Corpuscular Hgb 30.6 pg (27.0-32.0); Mean Corpuscular Volume 95.5 fL (81-99); Monocyte# 0.41 X10^3/uL; Monocyte% 6.6 % (0-10); NRBC Flagged by Analyzer 0 % (0-5); Neutrophil # 4.61 X10^3/uL (2.7-7.7); Neutrophil % 74.2 % (47-70); Platelet Count 152 K/mm3 (150-450); RBC Distribution Width SD 45.9 fl (35.1-43.9); Red Blood Count 3.96 M/mm3 (4.2-5.4); White Blood Count 6.2 K/mm3 (4.4-11.0)
[2024-08-16 19:18] VITALS: BP 165/70; PULSE 78; RESP 21; O2SAT 99
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
[2024-08-16 19:30] LABS: Bacteria 0 SEEN /hpf (None Seen); Red Blood Cells-Urine 0 SEEN /hpf (0-5)
[2024-08-16 19:32] LABS: ALB/GLOB Ratio 1.4 RATIO (0.9-2.4); AST(SGOT) 18 U/L (<=31); Alanine Aminotransfer ALT/SGPT < 5 U/L (<=34); Albumin, Serum 3.9 g/dL (3.4-4.8); Alkaline Phosphatase 64 U/L (35-104); Anion Gap 15 (5-15); BUN 19 mg/dL (4-19); Calcium,Total 8.9 mg/dL (7.6-11.0); Carbon Dioxide 16.3 mmol/L (21.0-32.0); Chloride 110 mmol/L (98-108); Creatinine, Serum 1.56 mg/dL (0.70-1.20); EST Glomerular Filtration Rate 34 (>60); Estimated Creatinine Clearance 27.73 ml/min (50-250); Globulin 2.7 g/dL (2.2-4.2); Glucose 113 mg/dL (70-99); Potassium 3.6 mmol/L (3.3-5.1); Protein, Total 6.5 g/dL (5.9-8.4); Sodium Level 142 mmol/L (133-145); Total Bilirubin 0.47 mg/dL (0.00-1.30)
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
[2024-08-16 19:51] LABS: Troponin T High Sensitivity 11 ng/L (<=14)
[2024-08-16 19:54] LABS: Color, Urine Yellow (Yellow); Glucose, Dipstick Normal (Normal); Ketone-Dipstick 5 mg/dl (Negative); Leukocyte Esterase-Dipstick 25 /ul (Negative); Nitrite-Dipstick Negative (Negative); Occult Blood-Urine Negative /ul (Negative); Protein-Dipstick 15 mg/dl (Negative); Specific Gravity, Urine 1.015 (1.002-1.030); Urine Bilirubin Dipstick Negative (Negative); Urine Clarity Cloudy (Clear); Urine Urobilinogen Normal (Normal)
[2024-08-16 20:52] VITALS: BP 164/64; BP 167/95; BP 174/80; PULSE 110; PULSE 82; PULSE 85
[2024-08-16 20:52] LABS: Mucous, Urine 1+ /hpf (<or=2+); Squamous Epithelial Cells - UA 5-10 SEEN /hpf (5-10); White Blood Cells 5-10 SEEN /hpf (0-5); Yeast-Urine 3+ /hpf (None Seen)
[2024-08-16 21:00] VITALS: BP 167/95; PULSE 90; RESP 21; O2SAT 100
[2024-08-16 21:22] LABS: Troponin T High Sens 2 HR 12 ng/L (<=14)
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
[2024-08-16 22:36] VITALS: BP 150/69; PULSE 87; RESP 16; TEMP 36.8; O2SAT 99
== END 2024-08-16 22:37 | disposition home or self-care (01) ==
PROVIDERS: Emergency Provider Emergency Medicine; PCP Internal Medicine; Visit Provider Emergency Medicine
DX: R55 Syncope and collapse (principal); I12.9 Hypertensive chronic kidney disease with stage 1 through stage 4 chronic kidney disease, or unspecified chronic kidney disease; N18.9 Chronic kidney disease, unspecified; E78.5 Hyperlipidemia, unspecified; Z79.899 Other long term (current) drug therapy
CPT/HCPCS: 71046; 80053; 81001; 84484; 85025; 93005; 99285; A4216

== ENCOUNTER 2024-12-25 16:40 | Emergency (ER) | payer MEDICARE, SELFPAY ==
[2024-12-25 16:41] VITALS: BP 109/71; PULSE 89; RESP 16; TEMP 37; O2SAT 98; BMI 18.8
--- NOTE | 2024-12-25 16:55 | ED.VIS.CHEST ---
HPI History of Present Illness Chief Complaint: Chest Pain Informant: patient Onset/Context/Timing Onset: Today Activity at onset: gradual Timing: Intermittent Quality: Positive for Stabbing Location: Substernal Worsened By: Nothing Relieved By: Nothing Associated Symptoms: Positive for Lightheadedness and Palpitations; Negative for Nausea, Vomiting, Diaphoresis, Dyspnea, Cough, Fever or Acid Reflux Narrative Narrative: Patient presents with chest pain that began today. Patient states it came on gradually. Patient states it has been intermittent. Patient describes it as stabbing. Patient states it is over the substernal area. Patient states nothing makes it better nothing makes it worse. Patient admits to some lightheadedness and palpitations with the pain. Patient denies any nausea or vomiting. Patient denies any shortness of breath or cough. Patient does admit to some rhinorrhea. CVD Risk Factors: Positive for Hypertension; Negative for Diabetes, Hypercholesterolemia, Family History 1' </=55 or Smoking PE Risk Factors: Negative for Recent Travel/Surgery, Recent Immobilization, Prior DVT or PE, Cancer or OCP + Smoking + >/=35 PFSH PFSH Medical History HLD (hyperlipidemia) HTN (hypertension) Glaucoma Home Medications ?Medication ?Instructions ?Recorded ?Last Taken ?Type amlodipine 2.5 mg tablet 2.5 mg PO DAILY 12/25/24 12/24/24 History Allergy/AdvReac Type Severity Reaction Status Date / Time No Known Allergies Allergy Verified 12/25/24 16:42 Surgical History S/P laparoscopic cholecystectomy Social History Smoking Status: Never smoker substance use type: does not use ROS ROS ED Constitutional Constitutional ED: Denies chills or fever(s) Eyes Eyes: Reports blurry vision; Denies diplopia ENT ENT ED: Reports rhinorrhea; Denies sore throat Cardiovascular Cardiovascular: Reports chest pain and palpitations Respiratory/Chest Respiratory/Chest: Denies cough or dyspnea Gastrointestinal Gastrointestinal: Denies nausea or vomiting Genitourinary Genitourinary ED: Reports urinary frequency; Denies dysuria or hematuria Musculoskeletal Musculoskeletal: Denies back pain or neck pain Integumentary Denies abscess or rash Neurologic Neurologic: Denies headache(s) or weakness Allergic/Immunologic Allergic/Immunologic ED: Denies mouth swelling or urticaria EXAM Physical Exam Const Vital Signs: 12/25/24 16:41 12/25/24 17:11 12/25/24 17:13 Temperature 98.6 F Temperature Source Oral Pulse Rate 89 Respiratory Rate 16 Respiratory Effort Normal Non-Labored Blood Pressure 109/71 Blood Pressure Mean 83 Pulse Ox 98 Oxygen Delivery Method Room Air Room Air 12/25/24 17:30 12/25/24 18:00 12/25/24 19:00 Temperature Temperature Source Pulse Rate 68 63 61 Respiratory Rate 20 H 16 16 Respiratory Effort Blood Pressure 146/58 H 156/74 H 161/65 H Blood Pressure Mean 80 101 97 Pulse Ox 100 100 100 Oxygen Delivery Method Constitutional Narrative: BMI is 18.8. General Appearance ED: NAD HEENT Reports moist mucous membranes normocephalic and atraumatic Neck supple and no JVD Chest Wall palpation of chest normal Resp normal respiratory effort and clear to auscultation bilaterally Cardio regular rate and regular rhythm GI soft to palpation, non-tender and non-distended Extremity normal to inspection General Extremety ED: Negative for edema or tenderness General Extremity: Negative for edema Neuro oriented x3, CN's II-XII intact bilaterally and no sensory deficits noted Sensorium / Orientation: awake and alert Motor Exam: strength 5/5 throughout Psych mental status grossly normal Heart Score History: Slightly/Non-Suspicious ECG: Normal Age: >/= 65 years Risk Factors: 1 or 2 Risk Factors Troponin: </= Normal Limit Score: 3 MDM MDM History & Record Review Additional record(s) reviewed:: Prior inpatient record, Prior ED visit and Prior labs Lab Data Attestation: I reviewed the patient's lab results. Lab results narrative: CBC was reviewed. There is a mild anemia with a hemoglobin of 11.4 macro 35.8. Basic metabolic profile was reviewed. BUN was 19 creatinine was slightly elevated at 1.73. This is unchanged compared to previous results. PT with INR and PTT were reviewed and were within normal limits. High-sensitivity troponin was reviewed and was 19. 2-hour repeat high-sensitivity troponin was reviewed and was also at 19. Labs: Laboratory Results - last 24 hr 12/25/24 12/25/24 17:20 19:25 WBC 5.3 RBC 3.90 L Hgb 11.4 L Hct 35.8 L MCV 91.8 MCH 29.2 MCHC 31.8 L RDW Std Deviation 45.1 H RDW Coeff of Tello 13.4 Plt Count 281 MPV 10.5 Immature Gran % (Auto) 0.200 Neut % (Auto) 63.6 Lymph % (Auto) 28.2 Leon % (Auto) 7.4 Eos % (Auto) 0.0 Baso % (Auto) 0.6 Absolute Neuts (auto) 3.3 Absolute Lymphs (auto) 1.48 Nucleated RBC % 0 PT 13.1 INR 1.0 APTT 28.7 Sodium 142 Potassium 3.6 Chloride 106 Carbon Dioxide 25.2 Anion Gap 10 BUN 19 Creatinine 1.73 H Estim Creat Clear Calc 22.67 L Est GFR (MDRD) Non-Af 30 L BUN/Creatinine Ratio 11.0 Glucose 97 Calcium 9.1 Troponin T High Sens 19 H D Troponin T Hi Sens 2 Hr 19 H Radiography Chest X-Ray - ED: 1 View, Read by ED Physician, Read by Radiologist and No Acute Disease Diagnostic Testing: Clinical Impression(s) from Imaging Studies Chest X-Ray 12/25/24 17:20 IMPRESSION: No Acute Findings. Reading Location: [address] Portable 1 view chest x-ray was obtained. On my independent interpretation, lung max are clear. There is normal cardiac silhouette. Bony thorax is normal. There is no acute process noted. Radiologist also interpreted the x-ray and agrees. EKG Initial EKG: Attestation: I personally reviewed and interpreted this EKG as follows: Interpretation: Sinus Rhythm (83) and No Acute Injury Pattern Comments: EKG was obtained. On my independent interpretation, it showed a normal sinus rhythm with a rate of 83. CO interval, QRS interval, and QTc intervals were all normal. [place] was normal. There are no acute ST or T wave changes. Prior EKG tracings: available for review Prior: Unchanged (08/16/2024) Treatment and Re-Evaluation :: Patient was given aspirin here. Patient was advised of her findings. Patient has a HEART score of 3. Patient was advised that this is low risk for acute cardiac event. Patient was instructed to follow-up with her primary care physician in 5 to 7 days. Patient understood and was agreeable with the plan. All questions were answered. Discharge Plan Triage Chief Complaint: Chest Pain ED Provider: Jatinder Ceron Dx/Rx/DC Orders Clinical Impression: Chest pain, HTN (hypertension) Instructions: ED Chest Pain, Uncertain Cause Prescriptions: No Action amlodipine 2.5 mg tablet 2.5 mg PO DAILY Primary Care Provider: Lane Vazquez Referrals: Lane Vazquez MD [Primary Care Provider, Internal Medicine] - 3-5 Days Print Language: [place] Zealander Disposition Disposition: Home, Self Care
--- NOTE | 2024-12-25 17:03 | EKG12_ITS ---
Test Reason : CP Blood Pressure : */* mmHG Vent. Rate : 83 BPM Atrial Rate : 83 BPM P-R Int : 124 ms QRS Dur : 70 ms QT Int : 366 ms P-R-T Axes : 65 14 24 degrees QTcB Int : 430 ms Normal sinus rhythm Normal ECG Confirmed by LILLI OQUENDO, SCOTT ([id number]), food editor SUHAS DEL ROSARIO ([id number]) on 12/27/2024 8:25:01 AM Referred By: JACOB/TALIA Confirmed By: SCOTT REEDER MD
--- NOTE | 2024-12-25 17:20 | RAD_ITS ---
PROCEDURE: CHEST 1 VIEW (PORTABLE) 12/25/2024 REASON FOR EXAM: CHEST PAIN TECHNIQUE: Frontal view of the chest. COMPARISON: 08/16/2024. FINDINGS: The heart is normal in size. The lungs are clear. No acute osseous abnormalities. RAD/Chest 1 View (Portable) IMPRESSION: No Acute Findings. Reading Location: [id number]
[2024-12-25 17:30] VITALS: BP 146/58; PULSE 68; RESP 20; O2SAT 100
[2024-12-25 17:43] LABS: Hematocrit 35.8 % (37-47); Hemoglobin 11.4 g/dL (12.0-15.0); Immature Granulocytes Count 0.010 X10^3/uL (0.0-0.0); Mean Corp Hgb Conc 31.8 g/dL (32-36); Mean Corpuscular Volume 91.8 fL (81-99); Mean Platelet Vol. 10.5 fl (6.2-12.0); NRBC Flagged by Analyzer 0 % (0-5); Platelet Count 281 K/mm3 (150-450); RBC Distribution Width CV 13.4 % (11.6-14.6); RBC Distribution Width SD 45.1 fl (35.1-43.9); Red Blood Count 3.90 M/mm3 (4.2-5.4); White Blood Count 5.3 K/mm3 (4.4-11.0)
[2024-12-25 18:00] VITALS: BP 156/74; PULSE 63; RESP 16; O2SAT 100
[2024-12-25 18:06] LABS: Troponin T High Sensitivity 19 ng/L (<=14)
[2024-12-25 18:07] LABS: Anion Gap 10 (5-15); BUN 19 mg/dL (4-19); BUN/Creat Ratio 11.0 RATIO (10-20); Calcium,Total 9.1 mg/dL (7.6-11.0); Carbon Dioxide 25.2 mmol/L (21.0-32.0); Chloride 106 mmol/L (98-108); Estimated Creatinine Clearance 22.67 ml/min (50-250); Glucose 97 mg/dL (70-99); Potassium 3.6 mmol/L (3.3-5.1)
[2024-12-25 19:00] VITALS: BP 161/65; PULSE 61; RESP 16; O2SAT 100
[2024-12-25 19:27] LABS: Prothrombin Time (Protime)PT. 13.1 SECONDS (11.7-14.9)
[2024-12-25 19:28] LABS: Partial Thromboplast Time 28.7 Seconds (24.1-36.2)
[2024-12-25 19:57] LABS: Troponin T High Sens 2 HR 19 ng/L (<=14)
[2024-12-25 20:47] VITALS: BP 160/68; PULSE 69; RESP 16; TEMP 36.8; O2SAT 98
== END 2024-12-25 20:48 | disposition home or self-care (01) ==
PROVIDERS: Emergency Provider Emergency Medicine; PCP Internal Medicine; Visit Provider Emergency Medicine
DX: R07.9 Chest pain, unspecified (principal); E78.5 Hyperlipidemia, unspecified; I10 Essential (primary) hypertension; Z79.899 Other long term (current) drug therapy; Z90.49 Acquired absence of other specified parts of digestive tract
CPT/HCPCS: 71045; 80048; 84484; 85025; 85610; 85730; 93005; 99283